=== PATIENT | male | born 1935 | race Caucasian/White ===

== ENCOUNTER 2018-02-18 08:57 | Emergency (ER) | payer SELFPAY ==
[~2018-02-18] VITALS: Ht 172.7 cm; Wt 91.6 kg
[~2018-02-18 08:57] MED LIST: ARTTEAOPSO BOTHEYES; CLINGEL TOP; Diovan160 MG PO; Humulin R500 UNIT/1 IJ; LOSHYD PO; Levemir Fl100 UNIT/M SQ; METF500 PO; METO100ER PO; MINO50 PO; SIMV40 PO; WARF5 PO
[2018-02-18 09:23] LABS: BASOPHILS ABSOLUTE AUTO 0.07 K/mm3 (0.00-0.23); BASOPHILS PERCENT AUTO 1 % (0-2); EOSINOPHILS ABSOLUTE AUTO 0.27 K/mm3 (0.00-0.68); EOSINOPHILS PERCENT AUTO 2 % (0-6); Hematocrit 37.9 % (37.0-53.0); IMMATURE GRAN ABSOLUTE AUTO 0.09 K/mm3 (0.00-0.10); IMMATURE GRAN PERCENT AUTO 1 % (0-1); LYMPHOCYTES ABSOLUTE AUTO 1.42 K/mm3 (0.84-5.20); LYMPHOCYTES PERCENT AUTO 12 % (21-46); MONOCYTES ABSOLUTE AUTO 0.82 K/mm3 (0.16-1.47); MONOCYTES PERCENT AUTO 7 % (4-13); Mean Corpuscular HGB 31.7 pg (26.0-34.0); Mean Corpuscular HGB Conc 31.7 g/dL (31.5-36.5); Mean Corpuscular Volume 100 fL (80-100); Mean Platelet Volume 10.9 fL (9.1-12.4); NEUTROPHILS ABSOLUTE AUTO 8.97 K/mm3 (1.96-9.15); NEUTROPHILS PERCENT AUTO 77 % (41-73); Platelet Count 161 K/mm3 (150-400); RDW Coefficient Variation 12.9 % (11.7-14.2); RDW Standard Deviation 47.8 fL (35.1-46.3); Red Blood Cell Count 3.79 M/mm3 (4.30-5.90); White Blood Cell Count 11.64 K/mm3 (4.00-11.30)
[2018-02-18 09:26] LABS: International Normalized Ratio 2.3; Prothrombin Time Results 22.6 Sec (9.7-11.5)
[2018-02-18 09:32] LABS: Troponin I 0.023 ng/mL (0.000-0.040)
[2018-02-18 09:33] LABS: Bun/Creatinine Ratio 26.3 (12.0-20.0); Calcium, Blood 8.4 mg/dL (8.5-10.1); Creatinine, Blood 1.71 mg/dL (0.60-1.20); Potassium, Blood 3.7 mmol/L (3.5-5.5)
[2018-02-18] MEDS ORDERED: INSDET100 (09:59)
[2018-02-18] MEDS ORDERED: Novolog100 UNIT/1 (09:59)
[2018-02-18] MEDS ORDERED: METO25ER (10:00)
[2018-02-18] MEDS ORDERED: CHLO25B (10:00)
[2018-02-18] MEDS ORDERED: POTA8 (10:00)
[2018-02-18] MEDS ORDERED: CHOL10002 (10:00)
[2018-02-18] MEDS ORDERED: TERA5 (10:01)
[2018-02-18] MEDS ORDERED: WARF1 (10:01)
[2018-02-18] MEDS ORDERED: SIMVASTATIN1 GM (10:01)
[2018-02-18] MEDS ORDERED: FURO100EL (10:02)
[2018-02-18 10:21] LABS: Source, Urine Catheter
[2018-02-18 10:28] LABS: Bilirubin, Urine Neg (Neg); Blood, Urine Neg (Neg); Glucose Qualitative, Urine Neg (Neg); Ketones, Urine Neg (Neg); Leukocyte Esterase, Urine Neg (Neg); Nitrite, Urine Neg (Neg); Protein, Urine 3+ (Neg); Urobilinogen, Urine NORM (Normal)
[2018-02-18 10:45] LABS: Appearance, Urine Clear (Clear); Color, Urine Yellow (P-Yellow); Red Blood Cells, Urine Not Seen /hpf (0-2); White Blood Cells, Urine 0-2 /hpf (0-5)
[2018-02-18 10:46] LABS: Bacteria Not Seen /hpf; Squamous Epithelial Cells Not Seen /hpf (Few)
== END 2018-02-18 11:30 | disposition home or self-care (01) ==
LOC: ER 08:57
PROVIDERS: Emergency Medicine
DX: R55 Syncope and collapse (principal); S09.90XA Unspecified injury of head, initial encounter; E11.649 Type 2 diabetes mellitus with hypoglycemia without coma; I10 Essential (primary) hypertension; M25.512 Pain in left shoulder; Z79.899 Other long term (current) drug therapy; Z79.4 Long term (current) use of insulin; Z79.01 Long term (current) use of anticoagulants; W19.XXXA Unspecified fall, initial encounter
CPT/HCPCS: 70450; 71045; 73030; 80048; 81001; 84484; 85025; 85610; 93005; 93010; 99284-25

== ENCOUNTER 2019-01-28 11:03 | Emergency (ER) | payer SELFPAY ==
[~2019-01-28] VITALS: Ht 170.2 cm; Wt 96.2 kg
[~2019-01-28 11:03] MED LIST changes: +CHLO25B; +CHOL10002; +FURO100EL; +INSDET100; +METO25ER; +Novolog100 UNIT/1; +POTA8; +SIMVASTATIN1 GM; +TERA5; +WARF1
== END 2019-01-28 12:38 | disposition home or self-care (01) ==
LOC: ER 11:03
DX: K40.90 Unilateral inguinal hernia, without obstruction or gangrene, not specified as recurrent (principal); Z88.0 Allergy status to penicillin; Z79.4 Long term (current) use of insulin; Z79.899 Other long term (current) drug therapy; Z79.01 Long term (current) use of anticoagulants; E11.9 Type 2 diabetes mellitus without complications; I10 Essential (primary) hypertension
CPT/HCPCS: 99283

== ENCOUNTER 2020-02-10 23:53 | Emergency (ER) | payer OTHER, MEDICARE ==
[~2020-02-10] VITALS: Ht 170.2 cm; Wt 94.3 kg
[2020-02-11 00:28] LABS: BASOPHILS ABSOLUTE AUTO 0.05 K/mm3 (0.00-0.23); BASOPHILS PERCENT AUTO 1 % (0-2); EOSINOPHILS ABSOLUTE AUTO 0.25 K/mm3 (0.00-0.68); EOSINOPHILS PERCENT AUTO 3 % (0-6); Hematocrit 34.6 % (37.0-53.0); IMMATURE GRAN ABSOLUTE AUTO 0.02 K/mm3 (0.00-0.10); IMMATURE GRAN PERCENT AUTO 0 % (0-1); LYMPHOCYTES ABSOLUTE AUTO 1.66 K/mm3 (0.84-5.20); LYMPHOCYTES PERCENT AUTO 21 % (21-46); MONOCYTES ABSOLUTE AUTO 0.71 K/mm3 (0.16-1.47); MONOCYTES PERCENT AUTO 9 % (4-13); Mean Corpuscular HGB 31.3 pg (26.0-34.0); Mean Corpuscular HGB Conc 31.8 g/dL (31.5-36.5); Mean Corpuscular Volume 99 fL (80-100); Mean Platelet Volume 11.4 fL (9.1-12.4); NEUTROPHILS ABSOLUTE AUTO 5.27 K/mm3 (1.96-9.15); NEUTROPHILS PERCENT AUTO 66 % (41-73); Platelet Count 148 K/mm3 (150-400); RDW Coefficient Variation 13.2 % (11.7-14.2); RDW Standard Deviation 47.7 fL (35.1-46.3); Red Blood Cell Count 3.51 M/mm3 (4.30-5.90); White Blood Cell Count 7.96 K/mm3 (4.00-11.30)
[2020-02-11 00:47] LABS: Albumin, Blood 3.3 g/dL (3.4-5.0); Bilirubin, Total 0.4 mg/dL (0.1-1.0); Bun/Creatinine Ratio 19.4 (12.0-20.0); Calcium, Blood 8.5 mg/dL (8.5-10.1); Creatinine, Blood 1.65 mg/dL (0.60-1.20); Globulin, Blood 3.3 g/dL (2.2-4.0); Potassium, Blood 3.7 mmol/L (3.5-5.5); Total Protein, Blood 6.6 g/dL (6.4-8.2)
[2020-02-16] MEDS ORDERED: CHLO25B PO (17:12)
[2020-02-16] MEDS ORDERED: Felodipine ER2.5 MG PO (17:13)
[2020-02-16] MEDS ORDERED: FURO40 PO (17:13)
[2020-02-16] MEDS ORDERED: DOC250 PO (17:13)
[2020-02-16] MEDS ORDERED: FLUT.05NI (17:13)
[2020-02-16] MEDS ORDERED: NOVOLOG FL100 UNIT/3 SC ×3 (17:14→17:15)
[2020-02-16] MEDS ORDERED: LEVEMIR100 UNIT/1 SC ×2 (17:15)
[2020-02-16] MEDS ORDERED: POTA10T PO (17:16)
[2020-02-16] MEDS ORDERED: METO50 PO ×2 (17:16)
[2020-02-16] MEDS ORDERED: MULTI VITAMIN1 EACH PO (17:16)
[2020-02-16] MEDS ORDERED: Zocor40 MG PO (17:17)
[2020-02-16] MEDS ORDERED: Hytrin2 MG PO (17:17)
[2020-02-16] MEDS ORDERED: WARF5 PO ×2 (17:18)
[2020-02-16] MEDS ORDERED: VITAMIN D325 MC3 PO (19:06)
== END 2020-02-11 05:17 | disposition home or self-care (01) ==
LOC: ER 23:53
PROVIDERS: Emergency Medicine
DX: T38.3X1A Poisoning by insulin and oral hypoglycemic [antidiabetic] drugs, accidental (unintentional), initial encounter (principal); E11.9 Type 2 diabetes mellitus without complications; I10 Essential (primary) hypertension; Z88.0 Allergy status to penicillin; Z79.01 Long term (current) use of anticoagulants; Z79.4 Long term (current) use of insulin; Z79.899 Other long term (current) drug therapy
CPT/HCPCS: 80053; 82947; 85025; 99284

== ENCOUNTER 2020-02-16 09:18 | Inpatient (IN) | payer OTHER, MEDICARE ==
[~2020-02-16] VITALS: Ht 172.7 cm; Wt 93.4 kg
[2020-02-16 09:55] LABS: BASOPHILS ABSOLUTE AUTO 0.03 K/mm3 (0.00-0.23); BASOPHILS PERCENT AUTO 0 % (0-2); EOSINOPHILS ABSOLUTE AUTO 0.16 K/mm3 (0.00-0.68); EOSINOPHILS PERCENT AUTO 1 % (0-6); Hematocrit 33.5 % (37.0-53.0); Hemoglobin 10.5 g/dL (13.5-17.5); IMMATURE GRAN ABSOLUTE AUTO 0.07 K/mm3 (0.00-0.10); IMMATURE GRAN PERCENT AUTO 1 % (0-1); LYMPHOCYTES ABSOLUTE AUTO 0.85 K/mm3 (0.84-5.20); LYMPHOCYTES PERCENT AUTO 6 % (21-46); MONOCYTES ABSOLUTE AUTO 0.99 K/mm3 (0.16-1.47); MONOCYTES PERCENT AUTO 8 % (4-13); Mean Corpuscular HGB 31.4 pg (26.0-34.0); Mean Corpuscular HGB Conc 31.3 g/dL (31.5-36.5); Mean Corpuscular Volume 100 fL (80-100); Mean Platelet Volume 11.9 fL (9.1-12.4); NEUTROPHILS ABSOLUTE AUTO 11.09 K/mm3 (1.96-9.15); NEUTROPHILS PERCENT AUTO 84 % (41-73); Platelet Count 129 K/mm3 (150-400); RDW Coefficient Variation 13.2 % (11.7-14.2); RDW Standard Deviation 48.8 fL (35.1-46.3); Red Blood Cell Count 3.34 M/mm3 (4.30-5.90); White Blood Cell Count 13.19 K/mm3 (4.00-11.30)
[2020-02-16 10:08] LABS: Albumin, Blood 3.2 g/dL (3.4-5.0); Albumin/Globulin Ratio 0.9 (0.8-1.8); Bilirubin, Total 1.6 mg/dL (0.1-1.0); Bun/Creatinine Ratio 22.6 (12.0-20.0); Calcium, Blood 8.7 mg/dL (8.5-10.1); Creatinine, Blood 1.64 mg/dL (0.60-1.20); Globulin, Blood 3.4 g/dL (2.2-4.0); Potassium, Blood 3.4 mmol/L (3.5-5.5); Total Protein, Blood 6.6 g/dL (6.4-8.2)
[2020-02-16 10:56] LABS: International Normalized Ratio 9.3; Prothrombin Time Results 87.7 Sec (9.7-11.5)
[2020-02-16 11:28] LABS: Source, Urine Clean Catch
[2020-02-16 11:31] LABS: Appearance, Urine Clear (Clear); Bilirubin, Urine Neg (Neg); Blood, Urine 1+ (Neg); Color, Urine Yellow (P-Yellow); Glucose Qualitative, Urine 1+ (Neg); Ketones, Urine Neg (Neg); Leukocyte Esterase, Urine Neg (Neg); Nitrite, Urine Neg (Neg); Protein, Urine 3+ (Neg); Urobilinogen, Urine NORM (Normal)
[2020-02-16 11:45] LABS: Bacteria Not Seen /hpf; Hyaline Casts 0-2 /lpf (0-2); Squamous Epithelial Cells Not Seen /hpf (Few); White Blood Cells, Urine 0-2 /hpf (0-5)
[2020-02-16] MEDS ORDERED: ATHLETE'S FOO35.4 GM PR (17:12)
[2020-02-16] MEDS ORDERED: CHLO25B PO ×2 (17:12)
[2020-02-16] MEDS ORDERED: DOC250 PO ×2 (17:13)
[2020-02-16] MEDS ORDERED: Felodipine ER2.5 MG PO ×2 (17:13)
[2020-02-16] MEDS ORDERED: FLUT.05NI ×2 (17:13)
[2020-02-16] MEDS ORDERED: FURO40 PO ×2 (17:13)
[2020-02-16] MEDS ORDERED: NOVOLOG FL100 UNIT/3 SC ×6 (17:14→17:15)
[2020-02-16] MEDS ORDERED: LEVEMIR100 UNIT/1 SC ×4 (17:15)
[2020-02-16] MEDS ORDERED: METO50 PO ×4 (17:16)
[2020-02-16] MEDS ORDERED: POTA10T PO ×2 (17:16)
[2020-02-16] MEDS ORDERED: MULTI VITAMIN1 EACH PO ×2 (17:16)
[2020-02-16] MEDS ORDERED: Zocor40 MG PO ×2 (17:17)
[2020-02-16] MEDS ORDERED: Vitamin B Comple1 EA PO (17:17)
[2020-02-16] MEDS ORDERED: Hytrin2 MG PO ×2 (17:17)
[2020-02-16] MEDS ORDERED: WARF5 PO ×3 (17:18)
[2020-02-16] MEDS ORDERED: VITAMIN D325 MC3 PO ×2 (19:06)
[2020-02-16 23:50] LABS: International Normalized Ratio 10.23; Prothrombin Time Results >90.0 Sec (9.7-11.5)
--- NOTE | 2020-02-17 00:16 | NUR ---
DR. SEARS NOTIFIED OF CRITICAL INR/PT OF 10.23 AND >90. NO CHANGES IN PATIENT CONDITION. VS WNL. NEW ORDER TO GIVE VITAMIN K 5MG PO X1.
[2020-02-17 05:44] LABS: BASOPHILS ABSOLUTE AUTO 0.05 K/mm3 (0.00-0.23); BASOPHILS PERCENT AUTO 1 % (0-2); EOSINOPHILS ABSOLUTE AUTO 0.28 K/mm3 (0.00-0.68); EOSINOPHILS PERCENT AUTO 3 % (0-6); Hematocrit 35.2 % (37.0-53.0); Hemoglobin 11.3 g/dL (13.5-17.5); IMMATURE GRAN ABSOLUTE AUTO 0.03 K/mm3 (0.00-0.10); IMMATURE GRAN PERCENT AUTO 0 % (0-1); LYMPHOCYTES ABSOLUTE AUTO 1.44 K/mm3 (0.84-5.20); LYMPHOCYTES PERCENT AUTO 17 % (21-46); MONOCYTES PERCENT AUTO 8 % (4-13); Mean Corpuscular HGB 31.9 pg (26.0-34.0); Mean Corpuscular HGB Conc 32.1 g/dL (31.5-36.5); Mean Corpuscular Volume 99 fL (80-100); Mean Platelet Volume 11.7 fL (9.1-12.4); NEUTROPHILS ABSOLUTE AUTO 6.02 K/mm3 (1.96-9.15); NEUTROPHILS PERCENT AUTO 71 % (41-73); Platelet Count 138 K/mm3 (150-400); RDW Coefficient Variation 13.1 % (11.7-14.2); Red Blood Cell Count 3.54 M/mm3 (4.30-5.90); White Blood Cell Count 8.52 K/mm3 (4.00-11.30)
[2020-02-17 06:01] LABS: International Normalized Ratio 3.21
[2020-02-17 06:06] LABS: Albumin, Blood 3.3 g/dL (3.4-5.0); Bilirubin, Total 0.9 mg/dL (0.1-1.0); Calcium, Blood 8.6 mg/dL (8.5-10.1); Creatinine, Blood 1.48 mg/dL (0.60-1.20); Globulin, Blood 3.4 g/dL (2.2-4.0); Potassium, Blood 3.8 mmol/L (3.5-5.5); Total Protein, Blood 6.7 g/dL (6.4-8.2)
--- NOTE | 2020-02-17 06:09 | NUR ---
SHIFT SUMMARY: PT A&O X4. HYPERTENSIVE THIS SHIFT. ALL OTHER VS WNL. PT DENIES ABD PAIN. PT GIVEN A ONE TIME DOSE OF VITAMIN K FOR CRITICAL INR. INR THIS MORNING 3.21. PT HAS BEEN NPO SINCE MIDNIGHT PER ORDERS. DENIES N/V. FLUIDS INFUSING PER EMAR. PT HAVING EPISODES OF DIARHHEA THIS SHIFT. VOIDING WELL. SBA TO BATHROOM.
[2020-02-17 06:10] LABS: Prothrombin Time Results 32.2 Sec (9.7-11.5)
--- NOTE | 2020-02-17 08:39 | NUR ---
DR SMITH HERE TO SEE PT. PT REPORTS PAIN DOING MUCH BETTER THIS AM.
--- NOTE | 2020-02-17 09:12 | NUR ---
DR ROTH NOTIFIED OF DR SMITH REQUESTING FOR HER TO CALL HIM.
--- NOTE | 2020-02-17 11:46 | NUR ---
PT CBG CHECKED AFTER PT ATE, PT MED FOR CBG.
--- NOTE | 2020-02-17 16:36 | NUR ---
SHIFT SUMMARY PT EATING AND DRINKING WITHOUT DIFFICULTY. PT BEEN ASSISTED WITH ADL'S PRN. PT REPORTED HAVING BM TODAY. PT CONT TO DENY PAIN. PT HAD SHOWER TODAY. PT UP AMBULATING IN HALLWAY THIS AFTERNOON WITH WALKER WITH STEADY GAIT WITH FAMILY. SHARRON CORDOVA TO SEE PT TODAY.
--- NOTE | 2020-02-17 17:06 | NUR ---
DISCUSSED PT'S STATUS OF HAVING DIET WITH DR ROTH. DISCUSSED SEMGLEE ORDER. DR ROTH REPORTS TO GIVE THIS EVENING. DR ROTH REPORTED TO CLARIFY WITH DR SMITH IF PT NEEDING TO BE NPO AFTER MIDNIGHT. DR SMITH NOTIFIED, REPORTED PT DID NOT NEED TO BE NPO AFTER MIDNIGHT TONIGHT R/T INR.
[2020-02-18 04:43] LABS: BASOPHILS ABSOLUTE AUTO 0.04 K/mm3 (0.00-0.23); BASOPHILS PERCENT AUTO 1 % (0-2); EOSINOPHILS ABSOLUTE AUTO 0.36 K/mm3 (0.00-0.68); EOSINOPHILS PERCENT AUTO 5 % (0-6); Hematocrit 30.2 % (37.0-53.0); Hemoglobin 9.7 g/dL (13.5-17.5); IMMATURE GRAN ABSOLUTE AUTO 0.03 K/mm3 (0.00-0.10); IMMATURE GRAN PERCENT AUTO 0 % (0-1); LYMPHOCYTES PERCENT AUTO 21 % (21-46); MONOCYTES ABSOLUTE AUTO 0.76 K/mm3 (0.16-1.47); MONOCYTES PERCENT AUTO 11 % (4-13); Mean Corpuscular HGB 31.4 pg (26.0-34.0); Mean Corpuscular HGB Conc 32.1 g/dL (31.5-36.5); Mean Corpuscular Volume 98 fL (80-100); Mean Platelet Volume 11.1 fL (9.1-12.4); NEUTROPHILS ABSOLUTE AUTO 4.58 K/mm3 (1.96-9.15); NEUTROPHILS PERCENT AUTO 63 % (41-73); Platelet Count 123 K/mm3 (150-400); RDW Standard Deviation 46.5 fL (35.1-46.3); Red Blood Cell Count 3.09 M/mm3 (4.30-5.90); White Blood Cell Count 7.27 K/mm3 (4.00-11.30)
[2020-02-18 04:59] LABS: International Normalized Ratio 1.34; Prothrombin Time Results 14.1 Sec (9.7-11.5)
--- NOTE | 2020-02-18 05:05 | NUR ---
SHIFT SUMMARY: PT HAS DONE WELL THIS SHIFT. TOLERATING FULL LIQ DIET. DENIES N/V. DENIES ABD PAIN/TENDERNESS. ACTIVE BT IN ALL QUADRANTS. NOT REQUIRING PAIN MEDS THIS SHIFT. INDEPENDENT IN ROOM. VOIDING WELL. PT APPEARS TO BE RESTING MOST OF SHIFT. PT AWARE OF PLAN AND POSSIBLE TREATMENT WITH HEPARIN TODAY.
[2020-02-18 05:07] LABS: Albumin, Blood 2.9 g/dL (3.4-5.0); Albumin/Globulin Ratio 0.9 (0.8-1.8); Bilirubin, Total 0.9 mg/dL (0.1-1.0); Bun/Creatinine Ratio 21.3 (12.0-20.0); Calcium, Blood 8.5 mg/dL (8.5-10.1); Creatinine, Blood 1.36 mg/dL (0.60-1.20); Globulin, Blood 3.1 g/dL (2.2-4.0); Potassium, Blood 3.5 mmol/L (3.5-5.5)
--- NOTE | 2020-02-18 07:26 | NUR ---
DR. SMITH CALLED AT THIS TIME REGAURDING PT INR OF 1.3, AND ALSO INFORMED DR. SMITH THAT PT IS NOT CURRENTLY RECEIVING HEPARIN. NO NEW ORDERS AT THIS TIME, DR. DUNN TO SEE PT. PT TO BE KEPT NPO FOR NOW.
--- NOTE | 2020-02-18 12:41 | NUR ---
PT LEFT FOR SURGERY AT ABOUT 1230
--- NOTE | 2020-02-18 14:44 | NUR ---
02/18/20 1444 Mara Cruz ALL COUNTS CORRECT
--- NOTE | 2020-02-18 17:02 | NUR ---
POST OP: REPORT RECEIVED FROM HOME ADVISOR KIM. PT TO UNIT AT ABOUT 1620. UPON ASSESSMENT PT IS A/O, VSS. SLIGHTLY FORGETFUL, BED ALARM ON. SURGICAL SITES WNL. WILL CTM
--- NOTE | 2020-02-18 18:12 | NUR ---
SUMMARY: PT DOING WELL POST OP. VSS, A/O. ABLE TO AMBULATE TO BATHROOM AND VOID. CURRENTLY SITTING AT EDGE OF BED AWAITING DINNER. PT DAUGHTER IN ROOM. PT MEDICATED X1 FOR PAIN, TOLERATING PO'S. HEPARIN DRIP STARTED AT 1750. WILL CTM AND REPORT TO CAREN PEREIRA.
--- NOTE | 2020-02-18 18:33 | NUR ---
HAPARIN CHANGED TO 18.7 ML/HR AT THIS TIME.
--- NOTE | 2020-02-18 23:39 | NUR ---
CBG: PT CBG ELEVATED, RECHECKED READING 432. CALL PALCED TO HOSPITALIST. PT CBG TREND AND ORDERS REVIEWED. NEW ORDERS REC.
--- NOTE | 2020-02-19 00:47 | NUR ---
CBG AT 432, PLAN TO ADMINSTER 12 UNITS OF HUMALOG PER MD ORDER ON MED SS. PT STS HE IS NOT COMFORTBLE WITH 12 UNITS OF HUMALOG. PT IS WORRIED ABOUT BLOOD GLUCOSE DROPPING QUICKLY. EDUCATED PT OF HUMALOG MED AND DIABETES. PT AGREED TO TAKE 8 UNITS AND PLAN TO REASSESS PT AFTER AN HOUR. PT WILL ALSO REPORT FOR ANY S/SX OF HYPOGLYCEMIA.
[2020-02-19 01:18] LABS: BASOPHILS PERCENT AUTO 0 % (0-2); EOSINOPHILS PERCENT AUTO 0 % (0-6); Hematocrit 31.8 % (37.0-53.0); Hemoglobin 10.1 g/dL (13.5-17.5); IMMATURE GRAN ABSOLUTE AUTO 0.04 K/mm3 (0.00-0.10); IMMATURE GRAN PERCENT AUTO 0 % (0-1); LYMPHOCYTES ABSOLUTE AUTO 0.45 K/mm3 (0.84-5.20); LYMPHOCYTES PERCENT AUTO 5 % (21-46); MONOCYTES ABSOLUTE AUTO 0.28 K/mm3 (0.16-1.47); MONOCYTES PERCENT AUTO 3 % (4-13); Mean Corpuscular HGB 31.5 pg (26.0-34.0); Mean Corpuscular HGB Conc 31.8 g/dL (31.5-36.5); Mean Corpuscular Volume 99 fL (80-100); Mean Platelet Volume 12.3 fL (9.1-12.4); NEUTROPHILS ABSOLUTE AUTO 8.14 K/mm3 (1.96-9.15); NEUTROPHILS PERCENT AUTO 91 % (41-73); Platelet Count 125 K/mm3 (150-400); RDW Coefficient Variation 12.9 % (11.7-14.2); RDW Standard Deviation 46.4 fL (35.1-46.3); Red Blood Cell Count 3.21 M/mm3 (4.30-5.90); White Blood Cell Count 8.91 K/mm3 (4.00-11.30)
[2020-02-19 01:40] LABS: Albumin, Blood 2.9 g/dL (3.4-5.0); Anion Gap 5 mmol/L (6-16); Blood Urea Nitrogen 32 mg/dL (8-24); Bun/Creatinine Ratio 17.5 (12.0-20.0); CO2, Blood 26 mmol/L (21-32); Calcium, Blood 8.4 mg/dL (8.5-10.1); Chloride, Blood 107 mmol/L (98-108); Creatinine, Blood 1.83 mg/dL (0.60-1.20); Glomerular Filtration Rate 38 (60-); Glucose, Blood 416 mg/dL (70-99); International Normalized Ratio 1.23; Phosphorus, Blood 3.5 mg/dL (2.5-4.9); Potassium, Blood 4.5 mmol/L (3.5-5.5); Sodium, Blood 138 mmol/L (136-145)
--- NOTE | 2020-02-19 05:13 | NUR ---
SHIFT SUMMARY POD1 FOR LAP ROBINSON. PT AOX4. VSS. PT CONTINUE TO HAVE 02 SAT OF 85-93 ON RA AT SLEEP. CONTINOUS BIOX IN PLACED AND CPAP PROTOCOL ORDERED. PT REFUSE TO USE CPAP MACHINE, PREFER TO USE 2L O2 AT SLEEP. ENC PT TO USE INCENTIVE SPIROMETER. ENC DEEP BREATHES. CBG REMAIN HIGH BUT IMPROVING. PT REFUSE TO TAKE RECOMMENDED FULL DOSE OF 12UNITS, INSTEAD HE AGREES TO TAKE 8 UNITS OF HUMALOG. EDUCATE PT OF INSULIN AND DM2 MANAGEMENT. PT IS ASYMPTOMATIC, DENIES S/SX OF HYPOGLYCEMIA. PT TOLERATING ADA DIET DENIES NAUSEA AND VOMITING. PT REPORTS PASSING FLATUS. HE DENIES PAIN. SCD'S IN PLACE ON BLE.
--- NOTE | 2020-02-19 09:28 | NUR ---
SPOKE WITH DR. AMAYA AT ABOUT 0750 CONCERNING PT CBG, SEE NEW ORDERS.
--- NOTE | 2020-02-19 11:14 | NUR ---
DR. ROTH NOTIFIED OF PT CBG OF 420 AT THIS TIME. ORDER TO GIVE 12 UNITS OF SQ HUMALOG NOW
--- NOTE | 2020-02-19 12:01 | NUR ---
HEPARIN STOPED AT ABOUT 1155
[2020-02-19] MEDS ORDERED: ENOXAPARIN150 MG/1 M SC ×2 (15:09)
--- NOTE | 2020-02-19 17:42 | NUR ---
DISCHARGE: PACKET PRINTED AND PT AND PT'S DAUGHTER EDUCATED. VERBALIZED UNDERSTANDING. [facility]. PT LEFT UNIT VIA WHEELCHIAR AT ABOUT 1715 WITH DAUGHTER AND LUIGI MAXWELL
--- NOTE | 2020-02-19 18:56 | NUR ---
SPOKE WITH PT'S SON ASHLEIGH CONCERNING PT NARCO SCRIPT. PT ABLE TO PAPER PRODUCTS SUPERVISOR TOMORROW IF NEEDED WHEN COMES IN FOR LOVENOX INJECTION. WILL LEAVE AT NURSES STATION AT MAKE NOC/GENERAL OFFICE DISPATCHER AWARE.
== END 2020-02-19 17:33 | disposition home or self-care (01) | DRG 408 ==
LOC: ER 09:18 → SURS 17:38
PROVIDERS: Emergency Medicine; Family Medicine; Physician Assistant; Surgery; ADMIT Internal Medicine
PROC: 0FT Hepatobiliary System and Pancreas, Resection (ICD-10-PCS; 2020-02-18)
PROC: BF14YZZ Fluoroscopy of Gallbladder, Bile Ducts and Pancreatic Ducts using Other Contrast (ICD-10-PCS; 2020-02-18)
PROC: 0FT44ZZ Resection of Gallbladder, Percutaneous Endoscopic Approach (ICD-10-PCS; principal; 2020-02-18 13:30)
DX: K80.42 Calculus of bile duct with acute cholecystitis without obstruction (principal); K85.10 Biliary acute pancreatitis without necrosis or infection; I48.20 Chronic atrial fibrillation, unspecified; Z20.828 Contact with and (suspected) exposure to other viral communicable diseases; N18.30 Chronic kidney disease, stage 3 unspecified; E11.22 Type 2 diabetes mellitus with diabetic chronic kidney disease; K21.9 Gastro-esophageal reflux disease without esophagitis; I12.9 Hypertensive chronic kidney disease with stage 1 through stage 4 chronic kidney disease, or unspecified chronic kidney disease; N40.0 Benign prostatic hyperplasia without lower urinary tract symptoms; E87.5 Hyperkalemia; D63.1 Anemia in chronic kidney disease; D69.6 Thrombocytopenia, unspecified; Z86.73 Personal history of transient ischemic attack (TIA), and cerebral infarction without residual deficits; Z95.2 Presence of prosthetic heart valve; Z87.891 Personal history of nicotine dependence; Z79.4 Long term (current) use of insulin; Z79.01 Long term (current) use of anticoagulants
CPT/HCPCS: 36415; 74177; 74181; 74300; 80053; 80069; 81001; 82947; 83690; 84100; 85025; 85610; 85730; 88304; 93005; 93010; 94762; 99285-25; A9270; A9270-GY; C1894; C9113; J0696; J1100; J1644; J1650; J1885; J2405; J2704; J3010; J7030; J7120; Q9967; U0004

== ENCOUNTER 2020-02-20 11:05 | Day surgery (SDC) | payer OTHER, MEDICARE ==
[~2020-02-20 11:05] MED LIST changes: +ATHLETE'S FOO35.4 GM PR; +CHLO25B PO; +DOC250 PO; +ENOXAPARIN150 MG/1 M SC; +FLUT.05NI; +FURO40 PO; +Felodipine ER2.5 MG PO; +Hytrin2 MG PO; +LEVEMIR100 UNIT/1 SC; +METO50 PO; +MULTI VITAMIN1 EACH PO; +NOVOLOG FL100 UNIT/3 SC; +POTA10T PO; +VITAMIN D325 MC3 PO; +Vitamin B Comple1 EA PO; +Zocor40 MG PO
== END 2020-02-20 16:17 | disposition home or self-care (01) ==
LOC: ATC 11:05
DX: K85.10 Biliary acute pancreatitis without necrosis or infection (principal); E11.9 Type 2 diabetes mellitus without complications; I10 Essential (primary) hypertension; E78.5 Hyperlipidemia, unspecified; Z79.4 Long term (current) use of insulin; Z95.2 Presence of prosthetic heart valve; Z79.899 Other long term (current) drug therapy; Z79.01 Long term (current) use of anticoagulants; Z88.0 Allergy status to penicillin; Z87.891 Personal history of nicotine dependence; I48.91 Unspecified atrial fibrillation
CPT/HCPCS: 85610; J1650

== ENCOUNTER 2020-02-21 00:07 | Day surgery (SDC) | payer OTHER, MEDICARE ==
--- NOTE | 2020-02-21 14:44 | NUR ---
FINGERSTICK INR 1.3
== END 2020-02-21 14:44 | disposition home or self-care (01) ==
LOC: ATC 00:07
DX: K85.10 Biliary acute pancreatitis without necrosis or infection (principal); E11.9 Type 2 diabetes mellitus without complications; I10 Essential (primary) hypertension; I48.91 Unspecified atrial fibrillation; Z79.4 Long term (current) use of insulin; Z79.01 Long term (current) use of anticoagulants; Z95.2 Presence of prosthetic heart valve; Z88.0 Allergy status to penicillin; Z87.891 Personal history of nicotine dependence; Z79.899 Other long term (current) drug therapy
CPT/HCPCS: 85610; J1650

== ENCOUNTER 2020-02-22 14:13 | Day surgery (SDC) | payer OTHER, MEDICARE ==
--- NOTE | 2020-02-22 14:44 | NUR ---
FINGERSTICK INR 1.4 TODAY
== END 2020-02-22 14:40 | disposition home or self-care (01) ==
LOC: ATC 14:13
DX: Z48.812 Encounter for surgical aftercare following surgery on the circulatory system (principal); E11.9 Type 2 diabetes mellitus without complications; I10 Essential (primary) hypertension; E78.5 Hyperlipidemia, unspecified; Z95.2 Presence of prosthetic heart valve; K85.10 Biliary acute pancreatitis without necrosis or infection; Z95.4 Presence of other heart-valve replacement; Z79.4 Long term (current) use of insulin; Z88.0 Allergy status to penicillin; I48.91 Unspecified atrial fibrillation; Z79.899 Other long term (current) drug therapy; Z79.01 Long term (current) use of anticoagulants; Z87.891 Personal history of nicotine dependence
CPT/HCPCS: 85610

== ENCOUNTER 2020-02-23 00:25 | Day surgery (SDC) | payer OTHER, MEDICARE | END 2020-02-23 14:36 | disposition home or self-care (01) | LOC: ATC 00:25 | DX: Z48.812 Encounter for surgical aftercare following surgery on the circulatory system (principal); E11.9 Type 2 diabetes mellitus without complications; Z79.4 Long term (current) use of insulin; I10 Essential (primary) hypertension; E78.5 Hyperlipidemia, unspecified; Z79.899 Other long term (current) drug therapy; Z79.01 Long term (current) use of anticoagulants; Z95.2 Presence of prosthetic heart valve; Z88.0 Allergy status to penicillin; Z87.891 Personal history of nicotine dependence; K85.10 Biliary acute pancreatitis without necrosis or infection; I48.91 Unspecified atrial fibrillation | CPT/HCPCS: 85610; J1650 ==

== ENCOUNTER 2020-02-24 00:29 | Day surgery (SDC) | payer OTHER, MEDICARE | END 2020-02-24 14:30 | disposition home or self-care (01) | LOC: ATC 00:29 | DX: Z48.812 Encounter for surgical aftercare following surgery on the circulatory system (principal); E11.9 Type 2 diabetes mellitus without complications; I10 Essential (primary) hypertension; E78.5 Hyperlipidemia, unspecified; Z95.2 Presence of prosthetic heart valve; Z88.0 Allergy status to penicillin; Z79.4 Long term (current) use of insulin; Z79.899 Other long term (current) drug therapy; Z79.01 Long term (current) use of anticoagulants; Z87.891 Personal history of nicotine dependence; I48.91 Unspecified atrial fibrillation; K85.10 Biliary acute pancreatitis without necrosis or infection | CPT/HCPCS: 36416; 85610; 96372; J1650 ==

== ENCOUNTER 2020-02-25 02:46 | Day surgery (SDC) | payer OTHER, MEDICARE | END 2020-02-25 14:39 | disposition home or self-care (01) | LOC: ATC 02:46 | DX: Z48.812 Encounter for surgical aftercare following surgery on the circulatory system (principal); E11.9 Type 2 diabetes mellitus without complications; I10 Essential (primary) hypertension; I48.91 Unspecified atrial fibrillation; K85.10 Biliary acute pancreatitis without necrosis or infection; E78.5 Hyperlipidemia, unspecified; Z79.899 Other long term (current) drug therapy; Z79.01 Long term (current) use of anticoagulants; Z95.2 Presence of prosthetic heart valve; Z79.4 Long term (current) use of insulin; Z88.0 Allergy status to penicillin | CPT/HCPCS: 36416; 85610; 96372; J1650 ==

== ENCOUNTER 2020-02-26 00:12 | Day surgery (SDC) | payer OTHER, MEDICARE | END 2020-02-26 14:37 | disposition home or self-care (01) | LOC: ATC 00:12 | DX: I35.0 Nonrheumatic aortic (valve) stenosis (principal); I10 Essential (primary) hypertension; I48.91 Unspecified atrial fibrillation; E11.9 Type 2 diabetes mellitus without complications; N40.0 Benign prostatic hyperplasia without lower urinary tract symptoms; D64.9 Anemia, unspecified; Z95.2 Presence of prosthetic heart valve; Z79.01 Long term (current) use of anticoagulants; Z79.4 Long term (current) use of insulin; Z86.73 Personal history of transient ischemic attack (TIA), and cerebral infarction without residual deficits; Z79.899 Other long term (current) drug therapy; Z87.891 Personal history of nicotine dependence; Z88.0 Allergy status to penicillin | CPT/HCPCS: 36416; 85610; 96372; J1650 ==

== ENCOUNTER 2020-02-27 00:46 | Day surgery (SDC) | payer SELFPAY ==
--- NOTE | 2020-02-27 14:57 | NUR ---
THIS RN FAXED RESULTS TO PCP YESTERDAY. PT STS PCP DID NOT HAVE THE RESULTS AND REQUESTED THEM AGAIN TODAY. PT STS HE WILL HAND DELIVER TODAYS RESULTS.
== END 2020-02-27 14:45 | disposition home or self-care (01) ==
LOC: ATC 00:46
DX: I08.0 Rheumatic disorders of both mitral and aortic valves (principal); I10 Essential (primary) hypertension; I48.91 Unspecified atrial fibrillation; E11.9 Type 2 diabetes mellitus without complications; N40.0 Benign prostatic hyperplasia without lower urinary tract symptoms; E78.5 Hyperlipidemia, unspecified; D64.9 Anemia, unspecified; Z95.2 Presence of prosthetic heart valve; Z79.01 Long term (current) use of anticoagulants; Z79.4 Long term (current) use of insulin; Z86.73 Personal history of transient ischemic attack (TIA), and cerebral infarction without residual deficits; Z79.899 Other long term (current) drug therapy; Z88.0 Allergy status to penicillin; Z87.891 Personal history of nicotine dependence
CPT/HCPCS: 36416; 85610; 96372; J1650

== ENCOUNTER 2020-02-28 00:45 | Day surgery (SDC) | payer SELFPAY | END 2020-02-28 14:20 | disposition home or self-care (01) | LOC: ATC 00:45 | DX: Z48.812 Encounter for surgical aftercare following surgery on the circulatory system (principal); E11.9 Type 2 diabetes mellitus without complications; I10 Essential (primary) hypertension; E78.5 Hyperlipidemia, unspecified; K85.10 Biliary acute pancreatitis without necrosis or infection; I48.91 Unspecified atrial fibrillation; Z95.2 Presence of prosthetic heart valve; Z88.0 Allergy status to penicillin; Z79.4 Long term (current) use of insulin; Z79.899 Other long term (current) drug therapy; Z79.01 Long term (current) use of anticoagulants; Z87.891 Personal history of nicotine dependence | CPT/HCPCS: 36416; 85610; 96372; J1650 ==

== ENCOUNTER 2020-02-29 13:56 | Day surgery (SDC) | payer SELFPAY | END 2020-02-29 14:16 | disposition home or self-care (01) | LOC: ATC 13:56 | DX: Z48.812 Encounter for surgical aftercare following surgery on the circulatory system (principal); E11.9 Type 2 diabetes mellitus without complications; I10 Essential (primary) hypertension; E78.5 Hyperlipidemia, unspecified; Z95.2 Presence of prosthetic heart valve; Z79.4 Long term (current) use of insulin; Z88.0 Allergy status to penicillin; Z79.899 Other long term (current) drug therapy; Z87.891 Personal history of nicotine dependence; Z79.01 Long term (current) use of anticoagulants; K85.10 Biliary acute pancreatitis without necrosis or infection | CPT/HCPCS: 36416; 85610; 96372; J1650 ==

== ENCOUNTER 2020-03-01 00:47 | Day surgery (SDC) | payer SELFPAY | END 2020-03-01 14:35 | disposition home or self-care (01) | LOC: ATC 00:47 → LAB 00:47 → ATC 14:30 | DX: I08.0 Rheumatic disorders of both mitral and aortic valves (principal); I10 Essential (primary) hypertension; I48.91 Unspecified atrial fibrillation; E11.9 Type 2 diabetes mellitus without complications; N40.0 Benign prostatic hyperplasia without lower urinary tract symptoms; E78.5 Hyperlipidemia, unspecified; Z79.01 Long term (current) use of anticoagulants; Z79.4 Long term (current) use of insulin; Z79.899 Other long term (current) drug therapy; Z95.2 Presence of prosthetic heart valve; Z86.73 Personal history of transient ischemic attack (TIA), and cerebral infarction without residual deficits; Z90.49 Acquired absence of other specified parts of digestive tract; Z88.0 Allergy status to penicillin | CPT/HCPCS: 36416; 85610; 96372; J1650 ==

== ENCOUNTER 2020-03-02 00:05 | Day surgery (SDC) | payer SELFPAY | END 2020-03-02 15:08 | disposition home or self-care (01) | LOC: LAB 00:05 → ATC 00:05 | DX: Z48.812 Encounter for surgical aftercare following surgery on the circulatory system (principal); E11.9 Type 2 diabetes mellitus without complications; I10 Essential (primary) hypertension; Z95.2 Presence of prosthetic heart valve; Z88.0 Allergy status to penicillin; I48.91 Unspecified atrial fibrillation; Z79.4 Long term (current) use of insulin; Z79.899 Other long term (current) drug therapy; Z79.01 Long term (current) use of anticoagulants; Z87.891 Personal history of nicotine dependence; K85.10 Biliary acute pancreatitis without necrosis or infection | CPT/HCPCS: 36416; 85610; 96372; J1650 ==

== ENCOUNTER 2020-03-03 00:56 | Day surgery (SDC) | payer SELFPAY | END 2020-03-03 14:15 | disposition home or self-care (01) | LOC: ATC 00:56 | DX: Z48.812 Encounter for surgical aftercare following surgery on the circulatory system (principal); E11.9 Type 2 diabetes mellitus without complications; E78.5 Hyperlipidemia, unspecified; I11.9 Hypertensive heart disease without heart failure; Z95.2 Presence of prosthetic heart valve; Z88.0 Allergy status to penicillin; Z79.4 Long term (current) use of insulin; Z79.899 Other long term (current) drug therapy; Z79.01 Long term (current) use of anticoagulants; Z87.891 Personal history of nicotine dependence; I48.91 Unspecified atrial fibrillation; K85.10 Biliary acute pancreatitis without necrosis or infection | CPT/HCPCS: 36416; 85610; 96372; J1650 ==

== ENCOUNTER 2020-03-04 00:14 | Day surgery (SDC) | payer SELFPAY ==
--- NOTE | 2020-03-04 14:17 | NUR ---
PT REPORTS TAKING 10MG OF COUMADIN LAST NIGHT. PT VERBALIZED HE WILL TAKE HIS 7.5MG DOSE TONIGHT AND RETURN FOR INR CHECK PER MD ORDER TOMORROW
--- NOTE | 2020-03-04 14:22 | NUR ---
PT REPORTS TAKING 10MG COUMADIN LAST NIGHT. PT VERBALIZES HE WILL TAKE HIS 7.5MG TONIGHT AND RETURN TOMORROW FOR INR CHECK PER MD ORDERS.
== END 2020-03-04 14:15 | disposition home or self-care (01) ==
LOC: ATC 00:14
DX: Z48.812 Encounter for surgical aftercare following surgery on the circulatory system (principal); Z95.2 Presence of prosthetic heart valve; E11.9 Type 2 diabetes mellitus without complications; E78.5 Hyperlipidemia, unspecified; I11.9 Hypertensive heart disease without heart failure; Z88.0 Allergy status to penicillin; Z79.4 Long term (current) use of insulin; Z79.899 Other long term (current) drug therapy; Z79.01 Long term (current) use of anticoagulants; Z87.891 Personal history of nicotine dependence; I48.91 Unspecified atrial fibrillation; K85.10 Biliary acute pancreatitis without necrosis or infection
CPT/HCPCS: 36416; 85610; 96372; J1650

== ENCOUNTER 2020-03-05 00:31 | Day surgery (SDC) | payer SELFPAY ==
--- NOTE | 2020-03-05 14:23 | NUR ---
FINGERSTICK INR TODAY = 2.4.
== END 2020-03-05 14:23 | disposition home or self-care (01) ==
LOC: ATC 00:31
DX: Z48.812 Encounter for surgical aftercare following surgery on the circulatory system (principal); Z95.2 Presence of prosthetic heart valve; E11.9 Type 2 diabetes mellitus without complications; E78.5 Hyperlipidemia, unspecified; I11.9 Hypertensive heart disease without heart failure; Z88.0 Allergy status to penicillin; Z79.4 Long term (current) use of insulin; Z79.899 Other long term (current) drug therapy; Z79.01 Long term (current) use of anticoagulants; Z87.891 Personal history of nicotine dependence; I48.91 Unspecified atrial fibrillation; K85.10 Biliary acute pancreatitis without necrosis or infection
CPT/HCPCS: 85610; J1650

== ENCOUNTER 2020-03-06 00:21 | Day surgery (SDC) | payer SELFPAY | END 2020-03-06 23:38 | disposition home or self-care (01) | LOC: ATC 00:21 | DX: I05.0 Rheumatic mitral stenosis (principal); E11.9 Type 2 diabetes mellitus without complications; I10 Essential (primary) hypertension; N40.0 Benign prostatic hyperplasia without lower urinary tract symptoms; E78.5 Hyperlipidemia, unspecified; I48.91 Unspecified atrial fibrillation; D64.9 Anemia, unspecified; Z95.2 Presence of prosthetic heart valve; Z79.4 Long term (current) use of insulin; Z79.01 Long term (current) use of anticoagulants; Z79.899 Other long term (current) drug therapy; Z88.0 Allergy status to penicillin; Z87.891 Personal history of nicotine dependence; Z86.73 Personal history of transient ischemic attack (TIA), and cerebral infarction without residual deficits ==

== ENCOUNTER 2021-02-03 03:04 | Emergency (ER) | payer OTHER ==
[~2021-02-03] VITALS: Ht 170.2 cm; Wt 93.4 kg
[2021-02-03 03:40] LABS: BASOPHILS ABSOLUTE AUTO 0.05 K/mm3 (0.00-0.23); BASOPHILS PERCENT AUTO 1 % (0-2); EOSINOPHILS ABSOLUTE AUTO 0.18 K/mm3 (0.00-0.68); EOSINOPHILS PERCENT AUTO 2 % (0-6); Hematocrit 34.1 % (37.0-53.0); Hemoglobin 11.4 g/dL (13.5-17.5); IMMATURE GRAN ABSOLUTE AUTO 0.04 K/mm3 (0.00-0.10); IMMATURE GRAN PERCENT AUTO 0 % (0-1); LYMPHOCYTES ABSOLUTE AUTO 1.81 K/mm3 (0.84-5.20); LYMPHOCYTES PERCENT AUTO 20 % (21-46); MONOCYTES ABSOLUTE AUTO 0.96 K/mm3 (0.16-1.47); MONOCYTES PERCENT AUTO 10 % (4-13); Mean Corpuscular HGB 32.6 pg (26.0-34.0); Mean Corpuscular HGB Conc 33.4 g/dL (31.5-36.5); Mean Corpuscular Volume 97 fL (80-100); Mean Platelet Volume 11.5 fL (9.1-12.4); NEUTROPHILS ABSOLUTE AUTO 6.18 K/mm3 (1.96-9.15); NEUTROPHILS PERCENT AUTO 67 % (41-73); Platelet Count 144 K/mm3 (150-400); RDW Coefficient Variation 13.2 % (11.7-14.2); RDW Standard Deviation 46.8 fL (35.1-46.3); White Blood Cell Count 9.22 K/mm3 (4.00-11.30)
[2021-02-03 03:59] LABS: Albumin/Globulin Ratio 0.8 (0.8-1.8); Bilirubin, Total 0.5 mg/dL (0.1-1.0); Bun/Creatinine Ratio 24.4 (12.0-20.0); Calcium, Blood 8.8 mg/dL (8.5-10.1); Creatinine, Blood 1.64 mg/dL (0.60-1.20); Globulin, Blood 3.9 g/dL (2.2-4.0); Potassium, Blood 4.3 mmol/L (3.5-5.5); Total Protein, Blood 6.9 g/dL (6.4-8.2); Troponin I 0.036 ng/mL (0.000-0.040)
== END 2021-02-03 06:10 | disposition home or self-care (01) ==
LOC: ER 03:04
PROVIDERS: Emergency Medicine
DX: I48.92 Unspecified atrial flutter (principal); E11.9 Type 2 diabetes mellitus without complications; I10 Essential (primary) hypertension; E78.5 Hyperlipidemia, unspecified; D64.9 Anemia, unspecified; I48.91 Unspecified atrial fibrillation; N40.0 Benign prostatic hyperplasia without lower urinary tract symptoms; Z79.4 Long term (current) use of insulin; Z79.01 Long term (current) use of anticoagulants; Z79.899 Other long term (current) drug therapy
CPT/HCPCS: 36415; 80053; 84484; 85025; 93005; 93010; 96374; 96375; 99285-25

== ENCOUNTER 2021-02-03 16:22 | Emergency (ER) | payer OTHER ==
[~2021-02-03] VITALS: Ht 170.2 cm; Wt 92.5 kg
== END 2021-02-03 19:03 | disposition home or self-care (01) ==
LOC: ER 16:22
DX: I48.91 Unspecified atrial fibrillation (principal); E11.9 Type 2 diabetes mellitus without complications; I10 Essential (primary) hypertension; E78.5 Hyperlipidemia, unspecified; D64.9 Anemia, unspecified; N40.0 Benign prostatic hyperplasia without lower urinary tract symptoms; Z88.0 Allergy status to penicillin; Z79.4 Long term (current) use of insulin; Z79.01 Long term (current) use of anticoagulants; Z79.899 Other long term (current) drug therapy
CPT/HCPCS: 92960; 93005; 93010; 96374; 99285-25; J2704; J3010; J7030

== ENCOUNTER 2021-06-22 00:17 | Emergency (ER) | payer OTHER ==
[~2021-06-22] VITALS: Ht 172.7 cm; Wt 91.2 kg
== END 2021-06-22 03:47 | disposition home or self-care (01) ==
LOC: ER 00:17
DX: T38.3X1A Poisoning by insulin and oral hypoglycemic [antidiabetic] drugs, accidental (unintentional), initial encounter (principal); E11.9 Type 2 diabetes mellitus without complications; I10 Essential (primary) hypertension; Z79.899 Other long term (current) drug therapy; E78.5 Hyperlipidemia, unspecified; Z87.891 Personal history of nicotine dependence
CPT/HCPCS: 36415; 82947; 99283

== ENCOUNTER 2021-07-25 08:44 | Emergency (ER) | payer OTHER ==
[~2021-07-25] VITALS: Ht 172.7 cm; Wt 90.7 kg
[2021-07-25 09:29] LABS: BASOPHILS ABSOLUTE AUTO 0.05 K/mm3 (0.00-0.23); BASOPHILS PERCENT AUTO 1 % (0-2); EOSINOPHILS ABSOLUTE AUTO 0.17 K/mm3 (0.00-0.68); EOSINOPHILS PERCENT AUTO 2 % (0-6); Hematocrit 32.5 % (37.0-53.0); Hemoglobin 10.4 g/dL (13.5-17.5); IMMATURE GRAN ABSOLUTE AUTO 0.08 K/mm3 (0.00-0.10); IMMATURE GRAN PERCENT AUTO 1 % (0-1); LYMPHOCYTES ABSOLUTE AUTO 1.01 K/mm3 (0.84-5.20); LYMPHOCYTES PERCENT AUTO 10 % (21-46); MONOCYTES ABSOLUTE AUTO 0.82 K/mm3 (0.16-1.47); MONOCYTES PERCENT AUTO 8 % (4-13); Mean Corpuscular Volume 100 fL (80-100); Mean Platelet Volume 11.5 fL (9.1-12.4); NEUTROPHILS ABSOLUTE AUTO 7.89 K/mm3 (1.96-9.15); NEUTROPHILS PERCENT AUTO 79 % (41-73); Platelet Count 132 K/mm3 (150-400); RDW Coefficient Variation 13.3 % (11.7-14.2); RDW Standard Deviation 48.4 fL (35.1-46.3); Red Blood Cell Count 3.25 M/mm3 (4.30-5.90); White Blood Cell Count 10.02 K/mm3 (4.00-11.30)
[2021-07-25 09:54] LABS: Albumin, Blood 2.9 g/dL (3.4-5.0); Albumin/Globulin Ratio 0.8 (0.8-1.8); Bilirubin, Total 0.5 mg/dL (0.1-1.0); Bun/Creatinine Ratio 19.9 (12.0-20.0); Calcium, Blood 8.6 mg/dL (8.5-10.1); Creatinine, Blood 1.41 mg/dL (0.60-1.20); Globulin, Blood 3.7 g/dL (2.2-4.0); Magnesium, Blood 1.7 mg/dL (1.6-2.4); Total Protein, Blood 6.6 g/dL (6.4-8.2)
== END 2021-07-25 15:25 | disposition home or self-care (01) ==
LOC: ER 08:44
PROVIDERS: Student in an Organized Health Care Education/Training Program
DX: I48.91 Unspecified atrial fibrillation (principal); R53.1 Weakness; E11.9 Type 2 diabetes mellitus without complications; I10 Essential (primary) hypertension; E78.5 Hyperlipidemia, unspecified; Z86.73 Personal history of transient ischemic attack (TIA), and cerebral infarction without residual deficits; Z87.891 Personal history of nicotine dependence; Z88.0 Allergy status to penicillin; Z79.899 Other long term (current) drug therapy; Z79.01 Long term (current) use of anticoagulants; Z79.4 Long term (current) use of insulin
CPT/HCPCS: 71046; 80053; 82947; 83735; 83880; 84484; 84702; 85025; 93005; 93010; 96374; 96375; 96376; 99284-25; A9270; J7030

== ENCOUNTER 2021-12-09 20:41 | Emergency (ER) | payer OTHER ==
[~2021-12-09] VITALS: Ht 172.7 cm; Wt 90.3 kg
== END 2021-12-09 22:53 | disposition left against medical advice (07) ==
LOC: ER 20:41
DX: U07.1 COVID-19 (principal); Z53.21 Procedure and treatment not carried out due to patient leaving prior to being seen by health care provider
CPT/HCPCS: 99283; A9270

== ENCOUNTER 2022-01-25 04:32 | Emergency (ER) | payer OTHER ==
[~2022-01-25] VITALS: Ht 170.2 cm; Wt 86.2 kg
[~2022-01-25 04:32] MED LIST changes: +BENZONATATE100 MG PO; +DESONIDE15 G1 TOP; +FELODIPINE ER5 M2 PO; +INSULANI; +JARDIANCE25 MG PO; +PREVAGEN PO
[2022-01-25 05:24] LABS: BASOPHILS ABSOLUTE AUTO 0.04 K/mm3 (0.00-0.23); BASOPHILS PERCENT AUTO 1 % (0-2); EOSINOPHILS ABSOLUTE AUTO 0.21 K/mm3 (0.00-0.68); EOSINOPHILS PERCENT AUTO 3 % (0-6); Hematocrit 29.9 % (37.0-53.0); Hemoglobin 9.4 g/dL (13.5-17.5); IMMATURE GRAN ABSOLUTE AUTO 0.02 K/mm3 (0.00-0.10); IMMATURE GRAN PERCENT AUTO 0 % (0-1); LYMPHOCYTES ABSOLUTE AUTO 0.91 K/mm3 (0.84-5.20); LYMPHOCYTES PERCENT AUTO 13 % (21-46); MONOCYTES ABSOLUTE AUTO 0.62 K/mm3 (0.16-1.47); MONOCYTES PERCENT AUTO 9 % (4-13); Mean Corpuscular HGB 32.4 pg (26.0-34.0); Mean Corpuscular HGB Conc 31.4 g/dL (31.5-36.5); Mean Corpuscular Volume 103 fL (80-100); Mean Platelet Volume 12.7 fL (9.1-12.4); NEUTROPHILS ABSOLUTE AUTO 5.44 K/mm3 (1.96-9.15); NEUTROPHILS PERCENT AUTO 75 % (41-73); Platelet Count 107 K/mm3 (150-400); RDW Standard Deviation 57.2 fL (35.1-46.3); Source, Urine Clean Catch; White Blood Cell Count 7.24 K/mm3 (4.00-11.30)
[2022-01-25 05:25] LABS: Appearance, Urine Clear (Clear); Bilirubin, Urine Neg (Neg); Blood, Urine 1+ (Neg); Color, Urine Yellow (P-Yellow); Glucose Qualitative, Urine 4+ (Neg); Ketones, Urine Neg (Neg); Leukocyte Esterase, Urine Neg (Neg); Nitrite, Urine Neg (Neg); Protein, Urine 3+ (Neg); Urobilinogen, Urine NORM (Normal)
[2022-01-25 05:42] LABS: Albumin, Blood 2.8 g/dL (3.4-5.0); Albumin/Globulin Ratio 0.8 (0.8-1.8); Bilirubin, Total 0.7 mg/dL (0.1-1.0); Bun/Creatinine Ratio 17.7 (12.0-20.0); Calcium, Blood 8.5 mg/dL (8.5-10.1); Creatinine, Blood 1.41 mg/dL (0.60-1.20); Globulin, Blood 3.3 g/dL (2.2-4.0); Potassium, Blood 3.6 mmol/L (3.5-5.5); Total Protein, Blood 6.1 g/dL (6.4-8.2)
[2022-01-25 05:48] LABS: Bacteria Rare /hpf; Red Blood Cells, Urine 0-2 /hpf (0-2); Squamous Epithelial Cells Rare /hpf (Few); White Blood Cells, Urine 0-2 /hpf (0-5)
[2022-01-25] MEDS ORDERED: ALMACONE SUSPE355 ML PO (09:36)
[2022-01-25] MEDS ORDERED: OMEP20ER PO (09:36)
== END 2022-01-25 10:07 | disposition home or self-care (01) ==
LOC: ER 04:32
PROVIDERS: Student in an Organized Health Care Education/Training Program
DX: R10.13 Epigastric pain (principal); E11.9 Type 2 diabetes mellitus without complications; I10 Essential (primary) hypertension; E78.5 Hyperlipidemia, unspecified; N40.0 Benign prostatic hyperplasia without lower urinary tract symptoms; Z88.0 Allergy status to penicillin; Z88.8 Allergy status to other drugs, medicaments and biological substances; Z79.899 Other long term (current) drug therapy; Z79.01 Long term (current) use of anticoagulants; Z79.4 Long term (current) use of insulin; Z87.891 Personal history of nicotine dependence; Z87.11 Personal history of peptic ulcer disease
CPT/HCPCS: 36415; 74177; 80053; 81001; 83690; 85025; 93005; 93010; 96374-59; 99284-25; A9270; C9113; J7030; Q9967

== ENCOUNTER → 2022-03-20 | Outpatient (CLI) | payer OTHER ==
[~2022-03-20] MED LIST changes: +ALMACONE SUSPE355 ML PO; +OMEP20ER PO
== END | disposition home or self-care (01) ==
LOC: LAB SHORT 16:55
DX: N39.0 Urinary tract infection, site not specified (principal)
CPT/HCPCS: 87086

== ENCOUNTER 2022-08-19 09:19 | Emergency (ER) | payer OTHER ==
[~2022-08-19] VITALS: Ht 177.8 cm; Wt 95.2 kg
[2022-08-19 09:49] LABS: BASOPHILS ABSOLUTE AUTO 0.04 K/mm3 (0.00-0.23); BASOPHILS PERCENT AUTO 1 % (0-2); EOSINOPHILS ABSOLUTE AUTO 0.12 K/mm3 (0.00-0.68); EOSINOPHILS PERCENT AUTO 1 % (0-6); Hematocrit 31.4 % (37.0-53.0); Hemoglobin 10.3 g/dL (13.5-17.5); IMMATURE GRAN ABSOLUTE AUTO 0.06 K/mm3 (0.00-0.10); IMMATURE GRAN PERCENT AUTO 1 % (0-1); LYMPHOCYTES ABSOLUTE AUTO 0.98 K/mm3 (0.84-5.20); LYMPHOCYTES PERCENT AUTO 11 % (21-46); MONOCYTES ABSOLUTE AUTO 0.53 K/mm3 (0.16-1.47); MONOCYTES PERCENT AUTO 6 % (4-13); Mean Corpuscular HGB 32.7 pg (26.0-34.0); Mean Corpuscular HGB Conc 32.8 g/dL (31.5-36.5); Mean Corpuscular Volume 100 fL (80-100); Mean Platelet Volume 12.3 fL (9.1-12.4); NEUTROPHILS ABSOLUTE AUTO 7.15 K/mm3 (1.96-9.15); NEUTROPHILS PERCENT AUTO 80 % (41-73); Platelet Count 86 K/mm3 (150-400); RDW Coefficient Variation 13.2 % (11.7-14.2); RDW Standard Deviation 48.7 fL (35.1-46.3); Red Blood Cell Count 3.15 M/mm3 (4.30-5.90); White Blood Cell Count 8.88 K/mm3 (4.00-11.30)
[2022-08-19 10:06] LABS: Albumin, Blood 3.1 g/dL (3.4-5.0); Albumin/Globulin Ratio 1.1 (0.8-1.8); Bilirubin, Total 0.4 mg/dL (0.1-1.0); Bun/Creatinine Ratio 18.5 (12.0-20.0); Calcium, Blood 8.7 mg/dL (8.5-10.1); Creatinine, Blood 2.05 mg/dL (0.60-1.20); Globulin, Blood 2.9 g/dL (2.2-4.0); Potassium, Blood 3.6 mmol/L (3.5-5.5)
[2022-08-19 10:57] VITALS: BP 128/89
== END 2022-08-19 10:58 | disposition home or self-care (01) ==
LOC: ER 09:19
PROVIDERS: Emergency Medicine
DX: K40.90 Unilateral inguinal hernia, without obstruction or gangrene, not specified as recurrent (principal); E11.65 Type 2 diabetes mellitus with hyperglycemia; I10 Essential (primary) hypertension; E78.5 Hyperlipidemia, unspecified; I48.91 Unspecified atrial fibrillation
CPT/HCPCS: 74018; 80053; 85025; 99284-25

== ENCOUNTER 2022-09-26 21:43 | Emergency (ER) | payer OTHER ==
[~2022-09-26] VITALS: Ht 172.7 cm; Wt 83.9 kg
[~2022-09-26 21:43] MED LIST changes: -INSULANI; +INSULANI SC
[2022-09-26 22:07] LABS: BASOPHILS ABSOLUTE AUTO 0.03 K/mm3 (0.00-0.23); BASOPHILS PERCENT AUTO 0 % (0-2); EOSINOPHILS ABSOLUTE AUTO 0.09 K/mm3 (0.00-0.68); EOSINOPHILS PERCENT AUTO 1 % (0-6); Hematocrit 29.2 % (37.0-53.0); Hemoglobin 9.9 g/dL (13.5-17.5); IMMATURE GRAN ABSOLUTE AUTO 0.02 K/mm3 (0.00-0.10); IMMATURE GRAN PERCENT AUTO 0 % (0-1); LYMPHOCYTES ABSOLUTE AUTO 1.19 K/mm3 (0.84-5.20); LYMPHOCYTES PERCENT AUTO 17 % (21-46); MONOCYTES ABSOLUTE AUTO 0.69 K/mm3 (0.16-1.47); MONOCYTES PERCENT AUTO 10 % (4-13); Mean Corpuscular HGB 33.8 pg (26.0-34.0); Mean Corpuscular HGB Conc 33.9 g/dL (31.5-36.5); Mean Corpuscular Volume 100 fL (80-100); NEUTROPHILS ABSOLUTE AUTO 5.07 K/mm3 (1.96-9.15); NEUTROPHILS PERCENT AUTO 72 % (41-73); Platelet Count 70 K/mm3 (150-400); RDW Coefficient Variation 13.3 % (11.7-14.2); RDW Standard Deviation 48.5 fL (35.1-46.3); Red Blood Cell Count 2.93 M/mm3 (4.30-5.90); White Blood Cell Count 7.09 K/mm3 (4.00-11.30)
[2022-09-26 22:11] LABS: Mean Platelet Volume 13.5 fL (9.1-12.4)
[2022-09-26 22:23] LABS: Albumin, Blood 2.8 g/dL (3.4-5.0); Albumin/Globulin Ratio 1.1 (0.8-1.8); Bilirubin, Total 0.6 mg/dL (0.1-1.0); Bun/Creatinine Ratio 9.6 (12.0-20.0); Calcium, Blood 8.3 mg/dL (8.5-10.1); Creatinine, Blood 2.18 mg/dL (0.60-1.20); Globulin, Blood 2.5 g/dL (2.2-4.0); Potassium, Blood 2.7 mmol/L (3.5-5.5); Total Protein, Blood 5.3 g/dL (6.4-8.2)
[2022-09-26 23:18] LABS: Source, Urine Voided
[2022-09-26 23:21] LABS: Appearance, Urine Clear (Clear); Bilirubin, Urine Neg (Neg); Blood, Urine 2+ (Neg); Glucose Qualitative, Urine 4+ (Neg); Ketones, Urine Neg (Neg); Leukocyte Esterase, Urine Neg (Neg); Nitrite, Urine Neg (Neg); Protein, Urine 3+ (Neg); Specific Gravity, Urine 1.015 (1.003-1.022); Urobilinogen, Urine NORM (Normal)
[2022-09-26 23:32] LABS: Bacteria Few /hpf; Color, Urine Yellow (P-Yellow); Red Blood Cells, Urine 0-2 /hpf (0-2); Squamous Epithelial Cells Few /hpf (Few)
[2022-09-27 02:45] VITALS: BP 149/50
[2022-09-28] MEDS ORDERED: BRUKINSA80 MG PO (15:17)
[2022-09-28] MEDS ORDERED: INSULIN GL100 UNIT/3 SC (15:21)
[2022-09-28] MEDS ORDERED: CHLO25B PO (15:23)
[2022-09-28] MEDS ORDERED: METO100ER PO (15:25)
== END 2022-09-27 02:56 | disposition home or self-care (01) ==
LOC: ER 21:43
PROVIDERS: Emergency Medicine
DX: E11.65 Type 2 diabetes mellitus with hyperglycemia (principal); I10 Essential (primary) hypertension; Z88.0 Allergy status to penicillin; Z88.8 Allergy status to other drugs, medicaments and biological substances; Z79.899 Other long term (current) drug therapy; Z79.4 Long term (current) use of insulin; Z86.73 Personal history of transient ischemic attack (TIA), and cerebral infarction without residual deficits; Z87.891 Personal history of nicotine dependence
CPT/HCPCS: 80053; 81001; 82947; 85025; 87086; 93005; 93010; 96360; 96361; 99285-25; J1815; J7030

== ENCOUNTER 2022-09-27 10:58 | Inpatient (IN) | payer OTHER ==
[~2022-09-27] VITALS: Ht 172.7 cm; Wt 88.0 kg
[2022-09-27 11:34] LABS: BASOPHILS ABSOLUTE AUTO 0.02 K/mm3 (0.00-0.23); BASOPHILS PERCENT AUTO 0 % (0-2); EOSINOPHILS ABSOLUTE AUTO 0.03 K/mm3 (0.00-0.68); EOSINOPHILS PERCENT AUTO 0 % (0-6); Hematocrit 28.3 % (37.0-53.0); Hemoglobin 9.5 g/dL (13.5-17.5); IMMATURE GRAN ABSOLUTE AUTO 0.04 K/mm3 (0.00-0.10); IMMATURE GRAN PERCENT AUTO 1 % (0-1); LYMPHOCYTES ABSOLUTE AUTO 0.83 K/mm3 (0.84-5.20); LYMPHOCYTES PERCENT AUTO 12 % (21-46); MONOCYTES ABSOLUTE AUTO 0.56 K/mm3 (0.16-1.47); MONOCYTES PERCENT AUTO 8 % (4-13); Mean Corpuscular HGB 33.7 pg (26.0-34.0); Mean Corpuscular HGB Conc 33.6 g/dL (31.5-36.5); Mean Corpuscular Volume 100 fL (80-100); NEUTROPHILS ABSOLUTE AUTO 5.46 K/mm3 (1.96-9.15); NEUTROPHILS PERCENT AUTO 79 % (41-73); RDW Coefficient Variation 13.5 % (11.7-14.2); RDW Standard Deviation 49.9 fL (35.1-46.3); Red Blood Cell Count 2.82 M/mm3 (4.30-5.90); White Blood Cell Count 6.94 K/mm3 (4.00-11.30)
[2022-09-27 11:41] LABS: International Normalized Ratio 1.17; Prothrombin Time Results 12.2 Sec (9.7-11.5)
[2022-09-27 11:42] LABS: Source, Urine Straight Cath
[2022-09-27 11:47] LABS: Appearance, Urine Clear (Clear); Bilirubin, Urine Neg (Neg); Blood, Urine 4+ (Neg); Color, Urine Yellow (P-Yellow); Glucose Qualitative, Urine 4+ (Neg); Ketones, Urine Neg (Neg); Leukocyte Esterase, Urine Neg (Neg); Nitrite, Urine Neg (Neg); Protein, Urine 4+ (Neg); Specific Gravity, Urine 1.015 (1.003-1.022); Urobilinogen, Urine NORM (Normal)
[2022-09-27 11:50] LABS: Mean Platelet Volume 14.4 fL (9.1-12.4); Platelet Count 61 K/mm3 (150-400)
[2022-09-27 12:20] LABS: Albumin, Blood 2.5 g/dL (3.4-5.0); Bilirubin, Total 0.4 mg/dL (0.1-1.0); Bun/Creatinine Ratio 10.1 (12.0-20.0); Calcium, Blood 7.8 mg/dL (8.5-10.1); Creatinine, Blood 2.28 mg/dL (0.60-1.20); Globulin, Blood 2.5 g/dL (2.2-4.0); Potassium, Blood 2.9 mmol/L (3.5-5.5)
[2022-09-27 12:36] LABS: Bacteria Many /hpf
[2022-09-27 12:37] LABS: Renal Epithelial Rare /hpf (0-Rare)
[2022-09-27 12:38] LABS: Granular Casts 0-2 /lpf (0); Squamous Epithelial Cells Few /hpf (Few)
[2022-09-27 12:39] LABS: Mucus Light (0-Heavy); Transitional Epithelial Cells Rare /hpf (0-Rare)
[2022-09-27 14:47] LABS: Cholesterol 108 mg/dL (50-200); HDL Cholesterol 53 mg/dL (>39); LDL/HDL RATIO 0.8; Low Density Lipoprotein Chol 44 mg/dL (0-110); Triglycerides 56 mg/dL (30-160); Very Low Density Lipoprot Chol 11 mg/dL (6-32)
[2022-09-27 16:02] VITALS: BP 113/69
--- NOTE | 2022-09-27 17:59 | NUR ---
PT ARRIVED IN THE UNIT FROM [facility] VIA GURNEY TRANSFERRED TO BED VIA SLIDER SHEET, REPORT RECEIVED FROM VAL PEREIRA. PT ON CARDIZEM GTT AT 15MG/HR UPON ARRIVAL HRR AFIB AT 120'S, SBP 115'S, SATS ABOVE 95% ON RA AFEBRILE. PT ALERT ADN ORIENTED TO SELF AND PERSON ONLY HAS SOME SLURRED SPEECH AND FLIGHT OF IDEAS WHICH PROVIDER MADE AWARE, PT TO GET EVALUATED BY ALARM SIGNAL OPERATOR TROPON ELEVATED AT 2110, PT DENIES CHEST PAIN UPON ARRIVAL. HEPARIN GTT STARTED AT 15U/KG/HR. TO START LR AT 100MLS/HR WELL SOON POTASSIUM GTT IS DONE INFUSING. POWERGLIDE PLACED ON CHAPO. DAUGHTER AT THE BEDSIDE PROVIDED SOME OF THE HISTORY OF THE PT. PT KEPT NPO AWAITING DR CORBIN TO SEE PT TODAY. PT HAD SOME COUGHING EPISODES WITH ASPIRIN AND SIPS OF WATER. NO OTHER ISSUES REPORTED, WILL CONTINUE TO MONITOR UNTIL END OF SHIFT
[2022-09-27 20:40] VITALS: BP 152/99
[2022-09-27 22:59] VITALS: BP 158/52
[2022-09-28 04:11] VITALS: BP 155/96
[2022-09-28 04:35] LABS: Hematocrit 27.4 % (37.0-53.0); Hemoglobin 9.3 g/dL (13.5-17.5); Mean Corpuscular HGB 33.2 pg (26.0-34.0); Mean Corpuscular HGB Conc 33.9 g/dL (31.5-36.5); Mean Corpuscular Volume 98 fL (80-100); Platelet Count 65 K/mm3 (150-400); RDW Coefficient Variation 13.5 % (11.7-14.2); RDW Standard Deviation 48.6 fL (35.1-46.3)
[2022-09-28 04:44] LABS: Mean Platelet Volume 14.5 fL (9.1-12.4)
[2022-09-28 05:10] LABS: Albumin, Blood 2.4 g/dL (3.4-5.0); Bilirubin, Total 0.3 mg/dL (0.1-1.0); Bun/Creatinine Ratio 10.3 (12.0-20.0); Calcium, Blood 8.1 mg/dL (8.5-10.1); Creatinine, Blood 1.94 mg/dL (0.60-1.20); Globulin, Blood 2.4 g/dL (2.2-4.0); Potassium, Blood 2.5 mmol/L (3.5-5.5); Total Protein, Blood 4.8 g/dL (6.4-8.2)
--- NOTE | 2022-09-28 07:30 | NUR ---
SHIFT SUMMARY PATIENT ALERT AND ORIENTED TO SELF. HE STARTED THE SHIFT WITH EXPRESSIVE APHASIA BUT SEEMED TO BE ORIENTED X 3-4. PATIENT BECAME CONFUSED OVERNIGHT PULLED TWO IV'S OUT, WAS PLACED ON CAMERA, AND COMBATIVE AT ONE POINT WHEN TRYING TO REPOSITION HIM. PATIENT IS AWAKE AND PLEASANT THIS MORNING. PATIENT'S BLOOD SUGAR WAS 130 AT BEGINNING OF SHIFT. PATIENT'S DAUGHTER REPORTED THAT HE TYPICALLY TAKES 15 UNITS GLARGINE IN THE EVENING, PATIENT CONFIRMED, HE WAS SCHEDULED TO RECEIVE 30 UNITS GLARGINE PER EMAR THIS RN CALLED THE GLO[employer]IL[employer] PLACER RESIDENT AND INFORMED HER OF THE PATIENT'S HOME DOSE GLARGINE AND THAT HIS BLOOD SUGAR WAS OVER 600 IN THE ER. THE EVENING GLARGINE WAS CHANGED TO 15 UNITS PER THE RESIDENT. ON THE MORNING LABS PATIENT'S GLUCOSE WAS 48, PATIENT MEDICATED WITH AN AMP OF D50. PATIENT ABLE TO BE REMOVED FROM CARDIZEM DRIP AFTER BEING GIVEN PO METOPROLOL. WILL CONTINUE TO MONITOR. CALL LIGHT WITHIN REACH.
[2022-09-28 08:06] VITALS: BP 168/4; BP 168/40
[2022-09-28 11:40] VITALS: BP 111/95
--- NOTE | 2022-09-28 12:48 | NUR ---
Request for home medication list was faxed this morning to the AOD at the [facility] at approx. 10 am; no reply so called the AOD and was told that it needs to be faxed to the [place] office. This was done at 1130 am.
[2022-09-28 13:00] LABS: Anti-Xa UFH, PHA Monitoring 0.7 IU/mL; International Normalized Ratio 1.16; Prothrombin Time Results 12.1 Sec (9.7-11.5)
[2022-09-28 14:21] LABS: Bun/Creatinine Ratio 10.2 (12.0-20.0); Calcium, Blood 8.3 mg/dL (8.5-10.1); Creatinine, Blood 1.87 mg/dL (0.60-1.20); Potassium, Blood 4.1 mmol/L (3.5-5.5)
[2022-09-28] MEDS ORDERED: BRUKINSA80 MG PO (15:17)
[2022-09-28] MEDS ORDERED: INSULIN GL100 UNIT/3 SC (15:21)
[2022-09-28] MEDS ORDERED: CHLO25B PO (15:23)
[2022-09-28] MEDS ORDERED: METO100ER PO (15:25)
[2022-09-28 16:57] VITALS: BP 147/90
--- NOTE | 2022-09-28 17:07 | NUR ---
RN/ DAY SHIFT SUMMARY MORNING REPORT RECEIVED DURING BEDSIDE GREETING WITH THE PATIENT. MEDICATIONS WERE PASSES AND DAILY ASSESSMENT WAS COMPLETED WITH NO COMPLICATIONS. THE PATIENT SEEMS TO BE SLIGHTLY CONFUSED BUT IS ABLE TO NORMALIZE AT THE TIME OF THE ASSESSMENT. THE PATIENT HAS BEEN HEMODYNAMICALLY STABLE ALL DAY WITH NORMALIZING BLOOD GLUCOSE LEVELS. THE PATIENT SEEMS TO BE GETTING MORE COMFUSED THE EVENING IS COMMING. THE HAS RECEIVED A BATH AND HAS GOTTEN UP TO THE BATHROOM AND SEEMS TO BE SOMEWHAT STABLE WITH SLIGHT WOBBLEING. HE THEN HAD A SLIGHTLY ELEVATED GLOOD GLUCOSE IN THE 200'S AND WAS TREATED WITH INSULIN. HE IS PLEASANTLY CONFUSED AT THIS TIME AND IS CONTINUING WITH VIDEO MONITORING. WILL CONTINUE TO MONITOR.
[2022-09-28 20:49] VITALS: BP 173/65
[2022-09-28 23:29] VITALS: BP 154/82
[2022-09-29 03:12] VITALS: BP 107/85
[2022-09-29 04:26] LABS: BASOPHILS ABSOLUTE AUTO 0.04 K/mm3 (0.00-0.23); BASOPHILS PERCENT AUTO 1 % (0-2); EOSINOPHILS ABSOLUTE AUTO 0.32 K/mm3 (0.00-0.68); EOSINOPHILS PERCENT AUTO 4 % (0-6); Hemoglobin 9.2 g/dL (13.5-17.5); IMMATURE GRAN ABSOLUTE AUTO 0.03 K/mm3 (0.00-0.10); IMMATURE GRAN PERCENT AUTO 0 % (0-1); LYMPHOCYTES ABSOLUTE AUTO 1.64 K/mm3 (0.84-5.20); LYMPHOCYTES PERCENT AUTO 19 % (21-46); MONOCYTES ABSOLUTE AUTO 0.74 K/mm3 (0.16-1.47); MONOCYTES PERCENT AUTO 9 % (4-13); Mean Corpuscular HGB 32.9 pg (26.0-34.0); Mean Corpuscular HGB Conc 32.9 g/dL (31.5-36.5); Mean Corpuscular Volume 100 fL (80-100); NEUTROPHILS ABSOLUTE AUTO 5.96 K/mm3 (1.96-9.15); NEUTROPHILS PERCENT AUTO 68 % (41-73); Platelet Count 61 K/mm3 (150-400); RDW Standard Deviation 51.3 fL (35.1-46.3); White Blood Cell Count 8.73 K/mm3 (4.00-11.30)
[2022-09-29 04:41] LABS: Anti-Xa UFH, PHA Monitoring 0.88 IU/mL; International Normalized Ratio 1.42; Prothrombin Time Results 14.6 Sec (9.7-11.5)
[2022-09-29 04:43] LABS: Albumin, Blood 2.4 g/dL (3.4-5.0); Bilirubin, Total 0.4 mg/dL (0.1-1.0); Bun/Creatinine Ratio 11.5 (12.0-20.0); Calcium, Blood 8.1 mg/dL (8.5-10.1); Creatinine, Blood 1.65 mg/dL (0.60-1.20); Globulin, Blood 2.3 g/dL (2.2-4.0); Potassium, Blood 3.3 mmol/L (3.5-5.5); Total Protein, Blood 4.7 g/dL (6.4-8.2)
--- NOTE | 2022-09-29 05:04 | NUR ---
SHIFT SUMMARY THIS RN ASSUMED CARE OF PATIENT AT 1900. PATIENT HAS BEEN ALERT AND ORIENTED X2-3 DURING THIS SHIFT. CONFUSED WITH A FLIGHT OF IDEAS AT TIMES AND HAS BEEN ASKING TO "DRIVE HOME" DURING THE SHIFT. PATIENT CALM AND COOPERATIVE WITH CARE. ABLE TO MAKE NEEDS KNOWN. BP STABLE. SR 1ST DEGREE HB, BBB, WITH HR 60-70'S. AFEBRILE. SPO2 >92% ON RA. CAMERA IN ROOM AND BED ALARM ON FOR SAFETY. HEP GTT AND LR INFUSING PER EMAR. BED IN LOWEST POSITION AND CALL LIGHT WITHIN REACH. THIS RN WILL CONTINUE TO MONITOR UNTIL SHIFT CHANGE AT 0700.
[2022-09-29 08:15] VITALS: BP 155/53
--- NOTE | 2022-09-29 16:36 | NUR ---
DAYSHIFT SUMMARY Patient transferred from PCU, AOx2. Video surveillance in place, patient calls appropriately for help during the day. Heparin gtt infusing, pharmacy to dose. CBGs WNL, no SSI needed. Vitals stable. Will continue plan of care.
[2022-09-29 19:28] VITALS: BP 132/61
[2022-09-30 01:39] LABS: International Normalized Ratio 1.76; Prothrombin Time Results 17.9 Sec (9.7-11.5)
[2022-09-30 01:41] LABS: Calcium, Blood 7.9 mg/dL (8.5-10.1); Creatinine, Blood 1.81 mg/dL (0.60-1.20); Potassium, Blood 3.5 mmol/L (3.5-5.5)
[2022-09-30 01:49] LABS: BASOPHILS ABSOLUTE AUTO 0.03 K/mm3 (0.00-0.23); BASOPHILS PERCENT AUTO 0 % (0-2); EOSINOPHILS ABSOLUTE AUTO 0.28 K/mm3 (0.00-0.68); EOSINOPHILS PERCENT AUTO 4 % (0-6); Hemoglobin 8.2 g/dL (13.5-17.5); IMMATURE GRAN ABSOLUTE AUTO 0.02 K/mm3 (0.00-0.10); IMMATURE GRAN PERCENT AUTO 0 % (0-1); LYMPHOCYTES ABSOLUTE AUTO 1.39 K/mm3 (0.84-5.20); LYMPHOCYTES PERCENT AUTO 20 % (21-46); MONOCYTES PERCENT AUTO 8 % (4-13); Mean Corpuscular HGB 33.3 pg (26.0-34.0); Mean Corpuscular HGB Conc 32.8 g/dL (31.5-36.5); Mean Corpuscular Volume 102 fL (80-100); NEUTROPHILS ABSOLUTE AUTO 4.79 K/mm3 (1.96-9.15); NEUTROPHILS PERCENT AUTO 68 % (41-73); Platelet Count 57 K/mm3 (150-400); RDW Coefficient Variation 13.9 % (11.7-14.2); RDW Standard Deviation 51.5 fL (35.1-46.3); Red Blood Cell Count 2.46 M/mm3 (4.30-5.90); White Blood Cell Count 7.11 K/mm3 (4.00-11.30)
[2022-09-30 03:56] VITALS: BP 111/47
--- NOTE | 2022-09-30 04:59 | NUR ---
SHIFT SUMMARY 86 YR M ADMITTED ON 09/27/22 FOR AFIB. FULL CODE. NO ACUTE CHANGES THIS SHIFT. PT IS OBVIOUSLY CONFUSED AND TALKS ABOUT RANDOM THINGS THAT DON'T REALLY MAKE SENSE. HE IS BEING OBSERVED BY REMOTE MONITORING AND HAS ONLY BEEN IMPULSIVE TO GET OUT OF BED ON HIS OWN ONCE THIS SHIFT. HE FELL ASLEEP A COUPLE OF HOURS INTO THIS SHIFT AND HAS SLEPT ALL NIGHT. NO REPORTS FROM MODELING AND SIMULATION ANALYST THIS SHIFT.
[2022-09-30 07:25] VITALS: BP 122/84
[2022-09-30 15:45] VITALS: BP 128/53
--- NOTE | 2022-09-30 16:15 | NUR ---
DAYSHIFT SUMMARY No acute changes to patient status, Plan is to continue Heparin gtt, and administer Warfarin, once INR is therapeutic Heparin will be DC'd. No changes in Heparin rate this shift. Vitals stable, CBG WNL no SSI coverage needed. Increased confusion noted in the evenings, patient is pleasant & redirectable. Will continue plan of care.
[2022-09-30 19:19] VITALS: BP 136/41
[2022-09-30 22:06] VITALS: BP 141/43
[2022-10-01] VITALS (8 sets, daily range): BP systolic 67–158; BP diastolic 27–56
--- NOTE | 2022-10-01 05:17 | NUR ---
SHIFT SUMMARY 86 YR M ADMITTED ON 09/27/22 FOR AFIB. FULL CODE. NO ACUTE CHANGES THIS SHIFT. PT APPEARS TO BE LESS CONFUSED THIS SHIFT THAN HE WAS LAST NIGHT. HE MADE NO ATTEMPTS TO GET UP ON HIS OWN W/O ASSISTANCE AND HIS SPEECH MORE FOCUSED AND REALISTIC. PER SERVICES MANAGER PT HAD (1) ONE MINUTE RUN OF TRIGEMINY THIS SHIFT. PT DOES NOT EXHIBIT ANY SIGNS OR SYMPTOMS OF STRESS OR ANXIETY. HE HAS SLEPT FOR MOST OF THIS SHIFT.
[2022-10-01 06:03] LABS: BASOPHILS ABSOLUTE AUTO 0.03 K/mm3 (0.00-0.23); BASOPHILS PERCENT AUTO 0 % (0-2); EOSINOPHILS ABSOLUTE AUTO 0.21 K/mm3 (0.00-0.68); EOSINOPHILS PERCENT AUTO 3 % (0-6); Hematocrit 23.1 % (37.0-53.0); Hemoglobin 7.7 g/dL (13.5-17.5); IMMATURE GRAN ABSOLUTE AUTO 0.02 K/mm3 (0.00-0.10); IMMATURE GRAN PERCENT AUTO 0 % (0-1); LYMPHOCYTES ABSOLUTE AUTO 0.89 K/mm3 (0.84-5.20); LYMPHOCYTES PERCENT AUTO 12 % (21-46); MONOCYTES ABSOLUTE AUTO 0.61 K/mm3 (0.16-1.47); MONOCYTES PERCENT AUTO 8 % (4-13); Mean Corpuscular HGB 33.6 pg (26.0-34.0); Mean Corpuscular HGB Conc 33.3 g/dL (31.5-36.5); Mean Corpuscular Volume 101 fL (80-100); NEUTROPHILS ABSOLUTE AUTO 5.99 K/mm3 (1.96-9.15); NEUTROPHILS PERCENT AUTO 77 % (41-73); Platelet Count 66 K/mm3 (150-400); RDW Standard Deviation 51.6 fL (35.1-46.3); Red Blood Cell Count 2.29 M/mm3 (4.30-5.90); White Blood Cell Count 7.75 K/mm3 (4.00-11.30)
[2022-10-01 06:07] LABS: Mean Platelet Volume 14.5 fL (9.1-12.4)
[2022-10-01 06:21] LABS: International Normalized Ratio 1.96; Prothrombin Time Results 19.8 Sec (9.7-11.5)
[2022-10-01 06:32] LABS: Bun/Creatinine Ratio 13.9 (12.0-20.0); Calcium, Blood 8.3 mg/dL (8.5-10.1); Creatinine, Blood 1.73 mg/dL (0.60-1.20); Potassium, Blood 3.3 mmol/L (3.5-5.5)
[2022-10-01 12:35] LABS: Hemoglobin 8.3 g/dL (13.5-17.5)
[2022-10-01 12:50] LABS: International Normalized Ratio 1.79; Prothrombin Time Results 18.2 Sec (9.7-11.5)
--- NOTE | 2022-10-01 14:05 | NUR ---
RN NOTE MR RINCON IS ORIENTATED TO HIS NAME, NOT HIS DATE OF , KNOW'S HE IS IN HOSPITAL IN [place]. GENERALLY VERY CONFUSED, UNABLE TO FOLLOW CONVERSATION HE SAID THAT HE LIVES ALONE AND HAS FAMILY CLOSE BY, NOT CONFIRMED HE HAS NOT HAD VISITORS YET TODAY. HEPARIN DISCONTINUED [address] GARCIA. CALL FROM [employer] THIS AM WHILE DR GARCIA WAS AT BEDSIDE AND REPORTED ST CHANGES ON TELEMTRY. PT DENIED NEW SYMPTOMS OR CHEST PAIN. ECG DONE ORDERED AND SEEN BY DR GARCIA. 1 PERSON ASSIST TO CHAIR WITH FWW. POOR FINE DEXTERITY OF FINGERS NOTED WHEN HOLDING PILL CUP. VIDEO MONITORING IN PLACE FOR PT SAFETLY - NO CALLS FROM MONITOR. CALL LIGHT IN REACH.
--- NOTE | 2022-10-01 16:46 | NUR ---
SHIFT SUMMARY SEE RN NOTE 1405HRS. HEPARIN GTT RESTARTED AT 1600HRS. FAMILY AT BEDSIDE THIS AFTERNOON, DAUGHTER CONFIRMED THAT MR RINCON LIVES ALONE WITH FAMILY IN [place] AND THAT THE PLAN IS FOR HOME HEALTH CARE ON DISCHARGE. NO FURTHER CALLS FROM CAR RETARDER OPERATOR AFTER CALL THAT WAS NOTED THIS MORNING. PT UP TO BATHROOM WITH FWW AND 1 PERSON ASSIST, CONTINENT OF URINE, SAT OUT IN RECLINER. NOW IN BED, BED LOW, CALL LIGHT IN REACH AND BED ALARM ON.
--- NOTE | 2022-10-01 20:10 | NUR ---
BLOOD PRESSURE CORRECTION MANUAL BP TAKEN 158/56
--- NOTE | 2022-10-02 04:12 | NUR ---
SHIFT SUMMARY PLEASENTLY CONFUSED PT FOLLOWS COMMANDS NO S/S OF DISTRESSHAS BEEN CONTINENT FOR ME USING URINAL . UNABLE TO USE CALL BUTTON BUT CALLS OUT WHEN NEEDING HELP. EXCITED TO GO HOME.
[2022-10-02 04:43] VITALS: BP 96/24
[2022-10-02 06:01] LABS: BASOPHILS ABSOLUTE AUTO 0.02 K/mm3 (0.00-0.23); BASOPHILS PERCENT AUTO 0 % (0-2); EOSINOPHILS ABSOLUTE AUTO 0.27 K/mm3 (0.00-0.68); EOSINOPHILS PERCENT AUTO 4 % (0-6); Hemoglobin 7.1 g/dL (13.5-17.5); IMMATURE GRAN ABSOLUTE AUTO 0.04 K/mm3 (0.00-0.10); IMMATURE GRAN PERCENT AUTO 1 % (0-1); LYMPHOCYTES ABSOLUTE AUTO 1.04 K/mm3 (0.84-5.20); LYMPHOCYTES PERCENT AUTO 14 % (21-46); MONOCYTES ABSOLUTE AUTO 0.82 K/mm3 (0.16-1.47); MONOCYTES PERCENT AUTO 11 % (4-13); Mean Corpuscular HGB 33.6 pg (26.0-34.0); Mean Corpuscular HGB Conc 33.8 g/dL (31.5-36.5); Mean Corpuscular Volume 100 fL (80-100); NEUTROPHILS ABSOLUTE AUTO 5.28 K/mm3 (1.96-9.15); NEUTROPHILS PERCENT AUTO 71 % (41-73); Platelet Count 80 K/mm3 (150-400); RDW Coefficient Variation 14.1 % (11.7-14.2); RDW Standard Deviation 49.4 fL (35.1-46.3); Red Blood Cell Count 2.11 M/mm3 (4.30-5.90); White Blood Cell Count 7.47 K/mm3 (4.00-11.30)
[2022-10-02 06:02] LABS: Mean Platelet Volume 14.5 fL (9.1-12.4)
[2022-10-02 06:04] LABS: Anti-Xa UFH, PHA Monitoring 0.38 IU/mL; International Normalized Ratio 2.66; Prothrombin Time Results 26.4 Sec (9.7-11.5)
[2022-10-02 06:05] LABS: Albumin, Blood 2.1 g/dL (3.4-5.0); Anion Gap 3 mmol/L (6-16); Blood Urea Nitrogen 27 mg/dL (8-24); Bun/Creatinine Ratio 16.2 (12.0-20.0); CO2, Blood 28 mmol/L (21-32); Calcium, Blood 7.8 mg/dL (8.5-10.1); Chloride, Blood 114 mmol/L (98-108); Creatinine, Blood 1.67 mg/dL (0.60-1.20); Glomerular Filtration Rate 40 (60-); Glucose, Blood 138 mg/dL (70-99); Magnesium, Blood 1.5 mg/dL (1.6-2.4); Phosphorus, Blood 3.1 mg/dL (2.5-4.9); Potassium, Blood 3.9 mmol/L (3.5-5.5); Sodium, Blood 145 mmol/L (136-145)
[2022-10-02 09:19] VITALS: BP 124/51
[2022-10-02 11:04] LABS: RETIC HGB EQUIVALENT 36.4 pg (28.20-36.60); RETICULOCYTE ABSOLUTE 0.0531 M/mm3 (0.0200-0.1100); RETICULOCYTE COUNT PERCENT 2.36 % (0.50-2.50)
[2022-10-02 12:03] LABS: Percent Saturation 16.5 % (20.0-50.0)
[2022-10-02 13:28] LABS: BASOPHILS ABSOLUTE AUTO 0.02 K/mm3 (0.00-0.23); BASOPHILS PERCENT AUTO 0 % (0-2); EOSINOPHILS ABSOLUTE AUTO 0.25 K/mm3 (0.00-0.68); EOSINOPHILS PERCENT AUTO 3 % (0-6); Hemoglobin 7.2 g/dL (13.5-17.5); IMMATURE GRAN ABSOLUTE AUTO 0.03 K/mm3 (0.00-0.10); IMMATURE GRAN PERCENT AUTO 0 % (0-1); LYMPHOCYTES ABSOLUTE AUTO 0.86 K/mm3 (0.84-5.20); LYMPHOCYTES PERCENT AUTO 12 % (21-46); MONOCYTES ABSOLUTE AUTO 0.88 K/mm3 (0.16-1.47); MONOCYTES PERCENT AUTO 12 % (4-13); Mean Corpuscular HGB 32.7 pg (26.0-34.0); Mean Corpuscular HGB Conc 32.7 g/dL (31.5-36.5); Mean Corpuscular Volume 100 fL (80-100); NEUTROPHILS ABSOLUTE AUTO 5.26 K/mm3 (1.96-9.15); NEUTROPHILS PERCENT AUTO 72 % (41-73); Platelet Count 86 K/mm3 (150-400); RDW Coefficient Variation 14.3 % (11.7-14.2); RDW Standard Deviation 51.8 fL (35.1-46.3)
[2022-10-02 13:58] LABS: Mean Platelet Volume 13.3 fL (9.1-12.4)
--- NOTE | 2022-10-02 15:45 | NUR ---
SHIFT SUMMARY: PT A&O X2-3. PT PLEASANT AND COOPERATIVE WITH CARE. PT PLEASANTLY CONFUSED. PT RECEIVED ONE TIME DOSE OF LASIX TODAY. PT CONTINENT BUT NEEDS ASSISTANCE WITH URINAL. PT HAVING PAIN IN BILAT FEET AND MULTIPLE TOES THIS SHIFT. PROVIDED TYLENOL WHICH APPEARED TO SLIGHTLY HELP BUT STILL PAINFUL. HGB CAME BACK AT 7.2 THIS AFTERNOON. PT DAUGHTER ASKED IF PT WOULD HOPEFULLY RECEIVE ENDOSCOPY THEY DO NOT KNOW WHERE BLEED IS COMING FROM. RECEIVED CALL FROM TELE THIS MORNING STATING PT WAS GOING IN AND OUT OF SINUS RHYTHM TO IDIOVENTRICULAR RHYTHM. NO C/O CHEST PAIN OR SOB. PT RECEIVED ONE TIME BAG OF MAGNESIUM THIS MORNING TOLERATING WELL. CALL LIGHT IN REACH. BED IN LOWEST POSITION. WILL CONTINUE TO MONITOR.
[2022-10-02 15:49] VITALS: BP 148/44
[2022-10-02 21:10] VITALS: BP 118/58
[2022-10-03] VITALS (10 sets, daily range): BP systolic 105–193; BP diastolic 29–65
--- NOTE | 2022-10-03 04:02 | NUR ---
SHIFT ASSESMENT BEEN ACTIVE DAY FOR PT HAS GROWN MORE CONFUSED AND HAS GOTTEN OUT OF BED SEVERAL TIMES . C/O RIGHT HIP PAIN AND WAS MEDICATED, PT SEEMS MORE RELAXED AT THIS POINT.
[2022-10-03 06:32] LABS: BASOPHILS ABSOLUTE AUTO 0.01 K/mm3 (0.00-0.23); BASOPHILS PERCENT AUTO 0 % (0-2); EOSINOPHILS ABSOLUTE AUTO 0.22 K/mm3 (0.00-0.68); EOSINOPHILS PERCENT AUTO 3 % (0-6); Hematocrit 20.5 % (37.0-53.0); Hemoglobin 6.8 g/dL (13.5-17.5); IMMATURE GRAN ABSOLUTE AUTO 0.04 K/mm3 (0.00-0.10); IMMATURE GRAN PERCENT AUTO 1 % (0-1); LYMPHOCYTES ABSOLUTE AUTO 0.87 K/mm3 (0.84-5.20); LYMPHOCYTES PERCENT AUTO 12 % (21-46); MONOCYTES ABSOLUTE AUTO 0.91 K/mm3 (0.16-1.47); MONOCYTES PERCENT AUTO 12 % (4-13); Mean Corpuscular HGB 33.2 pg (26.0-34.0); Mean Corpuscular HGB Conc 33.2 g/dL (31.5-36.5); Mean Corpuscular Volume 100 fL (80-100); NEUTROPHILS PERCENT AUTO 73 % (41-73); Platelet Count 92 K/mm3 (150-400); RDW Coefficient Variation 14.6 % (11.7-14.2); RDW Standard Deviation 52.3 fL (35.1-46.3); Red Blood Cell Count 2.05 M/mm3 (4.30-5.90); White Blood Cell Count 7.45 K/mm3 (4.00-11.30)
[2022-10-03 06:42] LABS: International Normalized Ratio 2.7; Prothrombin Time Results 26.8 Sec (9.7-11.5)
[2022-10-03 06:44] LABS: Mean Platelet Volume 13.4 fL (9.1-12.4)
[2022-10-03 07:02] LABS: Albumin, Blood 2.2 g/dL (3.4-5.0); Anion Gap 5 mmol/L (6-16); Bilirubin, Direct 0.2 mg/dL (0.0-0.3); Bilirubin, Indirect 0.4 mg/dL (0.1-0.7); Bilirubin, Total 0.6 mg/dL (0.1-1.0); Blood Urea Nitrogen 30 mg/dL (8-24); Bun/Creatinine Ratio 16.6 (12.0-20.0); CO2, Blood 28 mmol/L (21-32); Chloride, Blood 112 mmol/L (98-108); Creatinine, Blood 1.81 mg/dL (0.60-1.20); Glomerular Filtration Rate 36 (60-); Glucose, Blood 151 mg/dL (70-99); Lactate Dehydrogenase (Ld),Bld 239 U/L (100-240); Magnesium, Blood 1.7 mg/dL (1.6-2.4); Phosphorus, Blood 3.4 mg/dL (2.5-4.9); Potassium, Blood 3.6 mmol/L (3.5-5.5); Sodium, Blood 145 mmol/L (136-145)
[2022-10-03 16:04] LABS: Stool Occult Blood Guaiac 1 Pos (Neg)
[2022-10-03 17:19] LABS: BASOPHILS ABSOLUTE AUTO 0.02 K/mm3 (0.00-0.23); BASOPHILS PERCENT AUTO 0 % (0-2); EOSINOPHILS ABSOLUTE AUTO 0.32 K/mm3 (0.00-0.68); EOSINOPHILS PERCENT AUTO 4 % (0-6); Hematocrit 25.9 % (37.0-53.0); Hemoglobin 8.6 g/dL (13.5-17.5); IMMATURE GRAN ABSOLUTE AUTO 0.08 K/mm3 (0.00-0.10); IMMATURE GRAN PERCENT AUTO 1 % (0-1); LYMPHOCYTES ABSOLUTE AUTO 0.81 K/mm3 (0.84-5.20); LYMPHOCYTES PERCENT AUTO 9 % (21-46); MONOCYTES ABSOLUTE AUTO 1.15 K/mm3 (0.16-1.47); MONOCYTES PERCENT AUTO 13 % (4-13); Mean Corpuscular HGB 32.6 pg (26.0-34.0); Mean Corpuscular HGB Conc 33.2 g/dL (31.5-36.5); Mean Corpuscular Volume 98 fL (80-100); NEUTROPHILS ABSOLUTE AUTO 6.46 K/mm3 (1.96-9.15); NEUTROPHILS PERCENT AUTO 73 % (41-73); Platelet Count 115 K/mm3 (150-400); RDW Coefficient Variation 16.3 % (11.7-14.2); RDW Standard Deviation 57.4 fL (35.1-46.3); Red Blood Cell Count 2.64 M/mm3 (4.30-5.90); White Blood Cell Count 8.84 K/mm3 (4.00-11.30)
[2022-10-03 17:24] LABS: Mean Platelet Volume 13.2 fL (9.1-12.4)
--- NOTE | 2022-10-03 18:43 | NUR ---
SHIFT SUMMARY PATIENT FORGETFUL AND EASILY CONFUSED. PATIENT NOT REMEMBERING EATING MEALS AND LOSING TRACK OF TIME. SOMETIMES HAVING TROUBLES GETTING THOUGHTS OUT. PATIENT ABLE TO TRANSFER WITH ASSISTANCE. PATIENT UP TO CHAIR AND WALKING TO BATHROOM. PATIENT WORKED WITH PT AND OT TODAY. PATIENT RECIEVED 1 UNIT OF PRBC'S AND AN IRON INFUSION. POST INFUSION CBC DONE. HOME MEDS BROUGHT IN AND VERIFIED BY PHARMACY.
--- NOTE | 2022-10-03 21:17 | NUR ---
CALLED DR. CLEMENT REGARDING PTS B/P OF 110/33 WITH A MAP OF 58.67. PER DR. CLEMENT HOLD B/P MEDICATIONS THIS EVENING (CADURA AND METOPROLOL).
[2022-10-04 02:27] VITALS: BP 137/27
[2022-10-04 02:35] VITALS: BP 105/35
--- NOTE | 2022-10-04 04:35 | NUR ---
SHIFT SUMMARY; NO ACUTE CHANGES OVERNIGHT. THE PT IS AXO X3, CONFUSED AT TIMES. THE PT HAS BEEN SLEEPING IN BED FOR THE ENTIRETY OF THE NIGHT. TELE IS IN PLACE. THE PTS DIASTOLIC BLOOD PRESSURE HAS BEEN LOW THIS SHIFT, IN THE 30'S. NOTIFIED WHO ORDERS WE HOLD THE PTS NIGHT TIME B/P MEDICATIONS. THE PT USES THE URINAL INDEPENDENTY IN THE BED. THE PT DENIES ANY PAIN, SOB, CHEST PAIN/PRESSURE OR N/V THIS SHIFT. CURRENTLY THE PT IS SLEEPING IN BED WITH THE BED IN THE LOWEST POSITION AND THE CALL LIGHT AT BEDSIDE.
[2022-10-04 06:03] LABS: BASOPHILS ABSOLUTE AUTO 0.07 K/mm3 (0.00-0.23); BASOPHILS PERCENT AUTO 1 % (0-2); EOSINOPHILS ABSOLUTE AUTO 0.29 K/mm3 (0.00-0.68); EOSINOPHILS PERCENT AUTO 3 % (0-6); Hematocrit 24.8 % (37.0-53.0); Hemoglobin 8.5 g/dL (13.5-17.5); IMMATURE GRAN ABSOLUTE AUTO 0.17 K/mm3 (0.00-0.10); IMMATURE GRAN PERCENT AUTO 2 % (0-1); LYMPHOCYTES ABSOLUTE AUTO 1.51 K/mm3 (0.84-5.20); LYMPHOCYTES PERCENT AUTO 17 % (21-46); MONOCYTES ABSOLUTE AUTO 1.44 K/mm3 (0.16-1.47); MONOCYTES PERCENT AUTO 16 % (4-13); Mean Corpuscular HGB 32.4 pg (26.0-34.0); Mean Corpuscular HGB Conc 34.3 g/dL (31.5-36.5); Mean Corpuscular Volume 95 fL (80-100); NEUTROPHILS ABSOLUTE AUTO 5.41 K/mm3 (1.96-9.15); NEUTROPHILS PERCENT AUTO 61 % (41-73); NRBC ABSOLUTE 0.02 K/mm3 (0.00-0.02); NRBC Auto 0.2 /100 WBC (0.0-0.2); Platelet Count 90 K/mm3 (150-400); RDW Coefficient Variation 15.9 % (11.7-14.2); RDW Standard Deviation 54.3 fL (35.1-46.3); Red Blood Cell Count 2.62 M/mm3 (4.30-5.90); White Blood Cell Count 8.89 K/mm3 (4.00-11.30)
[2022-10-04 06:05] LABS: Albumin, Blood 2.3 g/dL (3.4-5.0); Anion Gap 4 mmol/L (6-16); Blood Urea Nitrogen 32 mg/dL (8-24); Bun/Creatinine Ratio 17.5 (12.0-20.0); CO2, Blood 27 mmol/L (21-32); Calcium, Blood 8.2 mg/dL (8.5-10.1); Chloride, Blood 113 mmol/L (98-108); Creatinine, Blood 1.83 mg/dL (0.60-1.20); Glomerular Filtration Rate 36 (60-); Glucose, Blood 135 mg/dL (70-99); Magnesium, Blood 1.9 mg/dL (1.6-2.4); Phosphorus, Blood 3.3 mg/dL (2.5-4.9); Potassium, Blood 3.7 mmol/L (3.5-5.5); Sodium, Blood 144 mmol/L (136-145)
[2022-10-04 07:51] VITALS: BP 101/60
[2022-10-04 08:21] LABS: International Normalized Ratio 2.08
[2022-10-04 15:57] VITALS: BP 85/40
[2022-10-04 16:00] VITALS: BP 99/46
--- NOTE | 2022-10-04 18:32 | NUR ---
SHIFT SUMMARY NO ACUTE CHANGES THIS SHIFT. A&O X 4, VSS. HAS BEEN UP IN CHAIR FOR ALL MEALS, WILLINGLY PARTICIPATED WITH PT. NO S/S OF BLEEDING, HGB 8.5. BG'S COVERED PER EMAR. APPETITE IS GOOD. HAS RESTED OFF & ON THROUGHOUT SHIFT, NO C/O PAIN, SOB OR ANY DISCOMFORT. IS PLEASANT & COOPERATIVE WITH ALL CARE. CALL LIGHT WITHIN REACH, BED IN LOW POSITION. PLAN IS POSSIBLE DC TOMORROW WITH POSSIBLE OUT PT GI CONSULT.
[2022-10-04 19:27] VITALS: BP 81/50
--- NOTE | 2022-10-04 22:44 | NUR ---
VIRTUAL PARTY DEMONSTRATOR MONITOR WAS DISCONTINUED. PT NO LONGER EXHIBITING UNSAFE OOB BEHHAVIORS.
[2022-10-05 01:23] VITALS: BP 108/40
--- NOTE | 2022-10-05 02:44 | NUR ---
SHIFT SUMMARY NOC PT A/O X 4. PLEASANT AND COOPERATIVE WITH CARE. REMOTE MONITOR D/C PT NO LONGER IS EXHIBITING UNSAFE OOB BEHAVIORS. BED ALARM IS STILL IN PLACE AND PT IS OK WITH THAT. PT USES CALL LIGHT APPROPRIATELY WHEN NEEDING SBA WITH FWW GB TO RESTROOM. PT IS ON TELE RUNNING SINUS RHYTHM WITH 1DHB/BBB @ 80 BPM. PT HGB 8.5 OF YESTERDAY. PT HAS AM LABS AND PENDING NO ACUTE CHANGES PT SHOULD DISCHARGE HOME TODAY WITH POSSIBLE OUTPATIENT GI CONSULT FOR EGD/COLONOSCOPY TO DETERMINE IF THERE IS A BLEED. PT HAD BP OF 80/51 AND AFTER RECHECK 108/40. PT HAS BL PG IN BOTH AC'S THAT DRAW. PT IS CURRENTLY RESTING WITH BED ALARM ON, BED IN LOWEST POSITION, AND CALL LIGHT WITHIN REACH.
[2022-10-05 05:16] LABS: BASOPHILS ABSOLUTE AUTO 0.05 K/mm3 (0.00-0.23); BASOPHILS PERCENT AUTO 1 % (0-2); EOSINOPHILS ABSOLUTE AUTO 0.32 K/mm3 (0.00-0.68); EOSINOPHILS PERCENT AUTO 4 % (0-6); Hematocrit 36.8 % (37.0-53.0); Hemoglobin 11.4 g/dL (13.5-17.5); IMMATURE GRAN ABSOLUTE AUTO 0.04 K/mm3 (0.00-0.10); IMMATURE GRAN PERCENT AUTO 1 % (0-1); LYMPHOCYTES ABSOLUTE AUTO 1.31 K/mm3 (0.84-5.20); LYMPHOCYTES PERCENT AUTO 18 % (21-46); MONOCYTES ABSOLUTE AUTO 0.64 K/mm3 (0.16-1.47); MONOCYTES PERCENT AUTO 9 % (4-13); Mean Corpuscular HGB 31.3 pg (26.0-34.0); Mean Platelet Volume 9.4 fL (9.1-12.4); NEUTROPHILS ABSOLUTE AUTO 5.06 K/mm3 (1.96-9.15); NEUTROPHILS PERCENT AUTO 68 % (41-73); Platelet Count 212 K/mm3 (150-400); RDW Coefficient Variation 13.6 % (11.7-14.2); RDW Standard Deviation 50.7 fL (35.1-46.3); Red Blood Cell Count 3.64 M/mm3 (4.30-5.90); White Blood Cell Count 7.42 K/mm3 (4.00-11.30)
[2022-10-05 05:26] LABS: Mean Corpuscular Volume 101 fL (80-100)
[2022-10-05 05:32] LABS: International Normalized Ratio 1.73; Prothrombin Time Results 17.6 Sec (9.7-11.5)
[2022-10-05 05:40] LABS: Albumin, Blood 2.5 g/dL (3.4-5.0); Anion Gap 5 mmol/L (6-16); Blood Urea Nitrogen 31 mg/dL (8-24); Bun/Creatinine Ratio 17.2 (12.0-20.0); CO2, Blood 28 mmol/L (21-32); Calcium, Blood 8.3 mg/dL (8.5-10.1); Chloride, Blood 111 mmol/L (98-108); Glomerular Filtration Rate 36 (60-); Glucose, Blood 89 mg/dL (70-99); Phosphorus, Blood 2.9 mg/dL (2.5-4.9); Potassium, Blood 3.5 mmol/L (3.5-5.5); Sodium, Blood 144 mmol/L (136-145)
[2022-10-05 06:46] LABS: Anti-Xa UFH, PHA Monitoring <0.10 IU/mL
[2022-10-05 07:20] VITALS: BP 113/41
[2022-10-05 07:42] LABS: Hematocrit 27.9 % (37.0-53.0); Hemoglobin 9.1 g/dL (13.5-17.5)
--- NOTE | 2022-10-05 14:57 | NUR ---
PT IS A/O, PLESANT AND COOPERATVIE. HE IS EATING AND DRINKING WELL. HE IS ON A HEPRIN DRIP. SPOKE WITH PROVIDER ABOUT GI CONSULT. PT WAS UP TO THE CHAIR THIS SHIFT FOR MEALS. HE SLEPT INTERMITENTLY DURING THIS SHIFT. FAMILY WAS AT BEDSIDE. HE IS CURRENTLY IN THE CHAIR CALL LIGHT IS KEARA GONZALEZ.
[2022-10-05 15:48] VITALS: BP 129/52
[2022-10-05 19:14] VITALS: BP 108/50
--- NOTE | 2022-10-06 03:12 | NUR ---
SHIFT SUMMARY NOC PT A/O X 4. FORGETFUL AT TIMES. NO ACUTE CHANGES TO REPORT. PT ON TELE RUNNING SINUS RHYTHM WITH 1DHB/BBB @ 90 BPM. PT HAS CONTINUOS HEPARIN INFUSING @ 18 ML/HR. PT IS AWAITING GI CONSULT OUTPATIENT AFTER PT HAS BEEN OFF OF WARFARIN FOR 5 DAYS FOR UPPER/LOWER GI SCOPES. PT HAS BL PG IN RAY/CHAPO. PT POSSIBLE DISCHARGE TODAY PENDING LABS AND GI CONSULT CLARIFICATION. PT IS CURRENTLY RESTING WITH BED ALARM ON, BED IN LOWEST POSITION, AND CALL LIGHT WITHIN REACH.
[2022-10-06 04:56] VITALS: BP 133/40
[2022-10-06 07:28] VITALS: BP 144/48
[2022-10-06 08:43] LABS: Hematocrit 25.1 % (37.0-53.0); Hemoglobin 8.3 g/dL (13.5-17.5)
[2022-10-06 12:41] LABS: International Normalized Ratio 1.36
[2022-10-06 15:44] VITALS: BP 117/38
--- NOTE | 2022-10-06 17:34 | NUR ---
SHIFT SUMMARY IS A&O X 3-4, CAN BE FORGETFUL AT TIMES. HEP GTT INFUSING AT 18U/HR PER PHARM/MD ORDER. PT WILLINGLY PARTICIPATED WITH OT & PT TODAY. H&H STABLE, H&H 8.3 & 25.1. NO ACUTE CHANGES TODAY. CALL LIGHT WITHIN REACH, BED IN LOW POSITION. IS ABLE TO MAKE NEEDS KNOWN.
[2022-10-06 19:33] VITALS: BP 104/52
[2022-10-07 02:32] VITALS: BP 146/46
--- NOTE | 2022-10-07 04:15 | NUR ---
SHIFT SUMMARY PATIENT HAD NO ACUTE CHANGES. AXOX 3-4 W/CONFUSION AT TIMES. USES URINAL AT BEDSIDE INDEPENDENTLY. POWERGLIDES RAY/CHAPO INTACT. HEPARIN INFUSING AT 18 mL/HR. CBG 149. TELE MONITOR FIRST DEGREE, BBB @ 80. VSS/AFEBRILE. DENIES CHEST PAIN, SOB, AND N/V. COOPERATIVE WITH CARE. CALL LIGHT IN REACH. BED IN LOWEST POSITION. WILL CONTINUE TO MONITOR UNTIL DAY SHIFT NURSE ASSUMES CARE.
[2022-10-07 05:46] LABS: BASOPHILS ABSOLUTE AUTO 0.06 K/mm3 (0.00-0.23); BASOPHILS PERCENT AUTO 1 % (0-2); EOSINOPHILS ABSOLUTE AUTO 0.29 K/mm3 (0.00-0.68); EOSINOPHILS PERCENT AUTO 4 % (0-6); Hematocrit 24.7 % (37.0-53.0); Hemoglobin 7.9 g/dL (13.5-17.5); IMMATURE GRAN ABSOLUTE AUTO 0.05 K/mm3 (0.00-0.10); IMMATURE GRAN PERCENT AUTO 1 % (0-1); LYMPHOCYTES ABSOLUTE AUTO 1.72 K/mm3 (0.84-5.20); LYMPHOCYTES PERCENT AUTO 22 % (21-46); MONOCYTES ABSOLUTE AUTO 0.85 K/mm3 (0.16-1.47); MONOCYTES PERCENT AUTO 11 % (4-13); Mean Corpuscular Volume 100 fL (80-100); NEUTROPHILS ABSOLUTE AUTO 4.71 K/mm3 (1.96-9.15); NEUTROPHILS PERCENT AUTO 61 % (41-73); Platelet Count 100 K/mm3 (150-400); RDW Coefficient Variation 15.5 % (11.7-14.2); RDW Standard Deviation 55.7 fL (35.1-46.3); Red Blood Cell Count 2.47 M/mm3 (4.30-5.90); White Blood Cell Count 7.68 K/mm3 (4.00-11.30)
[2022-10-07 07:24] VITALS: BP 115/49
[2022-10-07 08:07] LABS: Albumin, Blood 2.3 g/dL (3.4-5.0); Anion Gap 7 mmol/L (6-16); Blood Urea Nitrogen 27 mg/dL (8-24); CO2, Blood 25 mmol/L (21-32); Calcium, Blood 8.1 mg/dL (8.5-10.1); Chloride, Blood 110 mmol/L (98-108); Glomerular Filtration Rate 36 (60-); Glucose, Blood 177 mg/dL (70-99); Phosphorus, Blood 2.3 mg/dL (2.5-4.9); Potassium, Blood 3.5 mmol/L (3.5-5.5); Sodium, Blood 142 mmol/L (136-145)
[2022-10-07 15:26] VITALS: BP 113/59
--- NOTE | 2022-10-07 16:47 | NUR ---
SHIFT SUMMARY PT UP IN CHAIR FOR MEALS TODAY. WORKED WITH PHYSICAL THERAPY THIS MORNING AND AMBULATED TO BATHROOM WELL. ANTONIO HELD THIS AM FOR SOFT BP. DR. GARCIA AWARE. PT MEDICATED FOR HIP/BACK/BUTTOCK PAIN FROM A PREVIOUS FALL AT HOME ONCE THIS SHIFT. NO OTHER ACUTE CHANGES IN ASSESSMENT AT THIS TIME. PT PLEASANT & COOPERATIVE. CURRENTLY REPOSITIONED IN BED. VS REVIEWED. PT DENIES OTHER NEEDS AT THIS TIME.
[2022-10-07 19:24] VITALS: BP 144/53
[2022-10-08 02:28] VITALS: BP 176/40
[2022-10-08 04:50] LABS: Hematocrit 22.2 % (37.0-53.0); Hemoglobin 7.2 g/dL (13.5-17.5)
--- NOTE | 2022-10-08 04:51 | NUR ---
SHIFT SUMMARY PATIENT ALERT, FORGETFUL AT TIMES, OCCATIONAL MILD CONFUSION, EASILY REORIENTED. C/O RIGHT HIP PAIN R/T PRIOR FALL AT HOME, PRN TYLENOL NOT VERY EFFECTIVE, MD NOTIFIED, RECEIVED NEW ORDER FOR PRN OXYCODONE 5MG, TOLERATED WELL, WAS ABLE TO GET BETTER SLEEP. NOTED HX OF AFIB, AT TIME OF ASSESSMENT, SR WITH AUDIBLE MURMER (MECH AORTIC VALVE). PG TO RIGHT AND LEFT UPPER ARMS, LEFT IS INFUSING HEPARIN DRIP AT 18ML/HR, RIGHT IS SL, FLUSHES WELL. APPEARES TO BE SLEEPING SOUNDLY AT THIS TIME IN NO ACUTE DISTRESS, CALL LIGHT IN REACH, BED LOW.
[2022-10-08 05:18] LABS: Bun/Creatinine Ratio 17.1 (12.0-20.0); Calcium, Blood 7.9 mg/dL (8.5-10.1); Creatinine, Blood 1.64 mg/dL (0.60-1.20); Potassium, Blood 5.1 mmol/L (3.5-5.5)
[2022-10-08 06:00] VITALS: BP 104/40
[2022-10-08 08:03] VITALS: BP 123/41
[2022-10-08 13:11] LABS: BASOPHILS ABSOLUTE AUTO 0.05 K/mm3 (0.00-0.23); BASOPHILS PERCENT AUTO 1 % (0-2); EOSINOPHILS ABSOLUTE AUTO 0.21 K/mm3 (0.00-0.68); EOSINOPHILS PERCENT AUTO 3 % (0-6); Hematocrit 25.5 % (37.0-53.0); Hemoglobin 8.2 g/dL (13.5-17.5); IMMATURE GRAN ABSOLUTE AUTO 0.04 K/mm3 (0.00-0.10); IMMATURE GRAN PERCENT AUTO 1 % (0-1); LYMPHOCYTES PERCENT AUTO 22 % (21-46); MONOCYTES ABSOLUTE AUTO 0.61 K/mm3 (0.16-1.47); MONOCYTES PERCENT AUTO 8 % (4-13); Mean Corpuscular HGB 32.7 pg (26.0-34.0); Mean Corpuscular HGB Conc 32.2 g/dL (31.5-36.5); Mean Corpuscular Volume 102 fL (80-100); NEUTROPHILS ABSOLUTE AUTO 4.77 K/mm3 (1.96-9.15); NEUTROPHILS PERCENT AUTO 66 % (41-73); Platelet Count 87 K/mm3 (150-400); RDW Coefficient Variation 15.7 % (11.7-14.2); RDW Standard Deviation 57.1 fL (35.1-46.3); Red Blood Cell Count 2.51 M/mm3 (4.30-5.90); White Blood Cell Count 7.28 K/mm3 (4.00-11.30)
[2022-10-08 13:18] LABS: Mean Platelet Volume 13.4 fL (9.1-12.4)
[2022-10-08 14:51] VITALS: BP 131/52
--- NOTE | 2022-10-08 19:39 | NUR ---
SHIFT SUMMARY: PT A/O X 3, FORGETFUL, STANDBY ASSIST WITH FWW AND GB. PT PAIN TO R HIP MANAGED WITH CURRENT REGIMEN. PT REPORTED THIS AM NUMBNESS TO L HAND FINGERS WITH LOSS IF STAFF FORESTER STRENGTH. CT ORDERED. PT STATED SYMPTOMS RESOVED AROUND NOON TIME. PT HAD NO OTHER COMPLAINTS. NO BM TODAY, NO S/S OF BLEEDING. HGB 8.2 TODAY.
[2022-10-08 19:45] VITALS: BP 110/37
[2022-10-09 02:58] VITALS: BP 122/57
[2022-10-09 05:27] LABS: BASOPHILS ABSOLUTE AUTO 0.06 K/mm3 (0.00-0.23); BASOPHILS PERCENT AUTO 1 % (0-2); EOSINOPHILS ABSOLUTE AUTO 0.28 K/mm3 (0.00-0.68); EOSINOPHILS PERCENT AUTO 4 % (0-6); Hematocrit 21.7 % (37.0-53.0); IMMATURE GRAN ABSOLUTE AUTO 0.07 K/mm3 (0.00-0.10); IMMATURE GRAN PERCENT AUTO 1 % (0-1); LYMPHOCYTES ABSOLUTE AUTO 1.67 K/mm3 (0.84-5.20); LYMPHOCYTES PERCENT AUTO 22 % (21-46); MONOCYTES ABSOLUTE AUTO 0.74 K/mm3 (0.16-1.47); MONOCYTES PERCENT AUTO 10 % (4-13); Mean Corpuscular HGB 32.7 pg (26.0-34.0); Mean Corpuscular HGB Conc 32.3 g/dL (31.5-36.5); Mean Corpuscular Volume 101 fL (80-100); NEUTROPHILS ABSOLUTE AUTO 4.81 K/mm3 (1.96-9.15); NEUTROPHILS PERCENT AUTO 63 % (41-73); NRBC ABSOLUTE 0.02 K/mm3 (0.00-0.02); NRBC Auto 0.3 /100 WBC (0.0-0.2); Platelet Count 68 K/mm3 (150-400); RDW Coefficient Variation 15.9 % (11.7-14.2); RDW Standard Deviation 58.1 fL (35.1-46.3); Red Blood Cell Count 2.14 M/mm3 (4.30-5.90); White Blood Cell Count 7.63 K/mm3 (4.00-11.30)
[2022-10-09 05:32] LABS: Mean Platelet Volume 13.5 fL (9.1-12.4)
[2022-10-09 05:35] LABS: Albumin, Blood 2.2 g/dL (3.4-5.0); Anion Gap 7 mmol/L (6-16); Blood Urea Nitrogen 29 mg/dL (8-24); Bun/Creatinine Ratio 16.4 (12.0-20.0); CO2, Blood 25 mmol/L (21-32); Calcium, Blood 7.8 mg/dL (8.5-10.1); Chloride, Blood 112 mmol/L (98-108); Creatinine, Blood 1.77 mg/dL (0.60-1.20); Glomerular Filtration Rate 37 (60-); Glucose, Blood 176 mg/dL (70-99); Magnesium, Blood 1.6 mg/dL (1.6-2.4); Phosphorus, Blood 2.3 mg/dL (2.5-4.9); Potassium, Blood 3.5 mmol/L (3.5-5.5); Sodium, Blood 144 mmol/L (136-145)
--- NOTE | 2022-10-09 05:38 | NUR ---
UNEVENTFUL NIGHT. BP MEDS HELD DUE TO HYPOTENSION. HEPARIN GIVEN ORDERED. PER ORDER, HEPARIN SHOULD BE STOPPED 6 HOURS PRIOR TO EGD/COLONOSCOPY, PENDING PROCEDURE TIME UNKNOWN BUT PT NPO SINCE MIDNIGHT. RAY POWERGLIDE DRAWS BLOOD EASILY. AOX3, PLEASANT, CALLS APPROPRIATELY.
[2022-10-09 07:26] VITALS: BP 148/50
[2022-10-09 10:11] LABS: Hematocrit 23.3 % (37.0-53.0); Hemoglobin 7.5 g/dL (13.5-17.5)
--- NOTE | 2022-10-09 10:28 | NUR ---
Confirmed with Saranya in endo, EGD for 1600 today. CLD til lunch then NPO. Heparin off at 1010 as ordered to turn off 6 hours prior to EGD. Margaret in pharmacy informed.
[2022-10-09 12:07] LABS: Base Excess Venous -2.3 mmol/L; Bicarbonate Venous 22.6 mmol/L (24.0-30.0); PCO2 Venous 43.9 mmHg (38-42); pH Blood Venous 7.34 (7.34-7.37)
--- NOTE | 2022-10-09 12:08 | NUR ---
Call received from telecom network manager Alonso with arrhythmia noted. Rn to room. Pt unresponsive sitting on toilet after BM. NAIL CUTTER/Code blue called. Unable to palpate pulse. contract technical writer reported 4.1 second pause to 2nd degree AVB to 1st degress AVB. Pt lifted to floor, pt awaken and responsive X3. BP 101/67 HR 71, 02 sat 99% 2L. 12 lead ekg done. Orders to transfer to PCU 2. Report given to Debbi. Pt transported to PCU 2. Unable to leave daughter nate.
[2022-10-09 12:11] VITALS: BP 82/48
[2022-10-09 12:48] LABS: BASOPHILS PERCENT AUTO 1 % (0-2); EOSINOPHILS ABSOLUTE AUTO 0.25 K/mm3 (0.00-0.68); EOSINOPHILS PERCENT AUTO 3 % (0-6); Hematocrit 23.8 % (37.0-53.0); Hemoglobin 7.6 g/dL (13.5-17.5); IMMATURE GRAN PERCENT AUTO 1 % (0-1); LYMPHOCYTES ABSOLUTE AUTO 1.61 K/mm3 (0.84-5.20); LYMPHOCYTES PERCENT AUTO 18 % (21-46); MONOCYTES ABSOLUTE AUTO 0.69 K/mm3 (0.16-1.47); MONOCYTES PERCENT AUTO 8 % (4-13); Mean Corpuscular HGB 32.9 pg (26.0-34.0); Mean Corpuscular HGB Conc 31.9 g/dL (31.5-36.5); Mean Corpuscular Volume 103 fL (80-100); NEUTROPHILS ABSOLUTE AUTO 6.19 K/mm3 (1.96-9.15); NEUTROPHILS PERCENT AUTO 69 % (41-73); Platelet Count 88 K/mm3 (150-400); RDW Coefficient Variation 16.2 % (11.7-14.2); RDW Standard Deviation 59.6 fL (35.1-46.3); Red Blood Cell Count 2.31 M/mm3 (4.30-5.90); White Blood Cell Count 8.94 K/mm3 (4.00-11.30)
[2022-10-09 12:50] LABS: Magnesium, Blood 1.6 mg/dL (1.6-2.4)
[2022-10-09 12:53] LABS: Mean Platelet Volume 13.7 fL (9.1-12.4)
[2022-10-09 12:57] LABS: Albumin, Blood 2.2 g/dL (3.4-5.0); Albumin/Globulin Ratio 0.8 (0.8-1.8); Bilirubin, Total 0.7 mg/dL (0.1-1.0); Bun/Creatinine Ratio 15.9 (12.0-20.0); Calcium, Blood 7.9 mg/dL (8.5-10.1); Creatinine, Blood 1.95 mg/dL (0.60-1.20); Globulin, Blood 2.7 g/dL (2.2-4.0); Phosphorus, Blood 2.8 mg/dL (2.5-4.9); Thyroid Stimulating Hormone 5.42 uIU/mL (0.360-4.800); Total Protein, Blood 4.9 g/dL (6.4-8.2)
[2022-10-09 13:41] VITALS: BP 111/57
[2022-10-09 14:07] LABS: Free Thyroxine 1.12 ng/dL (0.70-1.60)
[2022-10-09 14:09] LABS: Triiodothyronine, Free <0.50 pg/mL (2.18-3.98)
[2022-10-09 15:29] VITALS: BP 92/61
--- NOTE | 2022-10-09 17:40 | NUR ---
SHIFT SUMMARY; ASSUMED CARE FROM MEDICAL FLOOR AFTER RAPID RESPONSE. A/A/0X4. PLESANT AND COOPERATIVE WITH CARE. SOFT BP ON ARRIVAL, FLUID BOLUS STARTED PER ORDERS. HEPARIN RESTARTED PER PHARMACY MANAGING, PER DR. CASTILLO. REPOSTIONS SELF IN BED, USES URINAL NEEDED. US OF RIGHT HIP BRUISED AREA FROM PREVIOUS FALL. TODAY'S EGD CANCELED BY PROVIDER, CLEAR DIET RESUMED, WILL CONTINUE TO MONITOR AND TREAT UNTIL CHANGE OF SHIFT.
[2022-10-09 21:05] VITALS: BP 144/48
[2022-10-10 00:39] VITALS: BP 128/80
[2022-10-10 04:10] VITALS: BP 144/72
[2022-10-10 07:38] VITALS: BP 130/64
[2022-10-10 08:23] LABS: Hematocrit 23.3 % (37.0-53.0); Hemoglobin 7.6 g/dL (13.5-17.5); Mean Corpuscular HGB 32.9 pg (26.0-34.0); Mean Corpuscular HGB Conc 32.6 g/dL (31.5-36.5); Mean Corpuscular Volume 101 fL (80-100); Platelet Count 88 K/mm3 (150-400); RDW Coefficient Variation 16.3 % (11.7-14.2); RDW Standard Deviation 58.9 fL (35.1-46.3); Red Blood Cell Count 2.31 M/mm3 (4.30-5.90); White Blood Cell Count 11.34 K/mm3 (4.00-11.30)
[2022-10-10 08:25] LABS: Mean Platelet Volume 14.2 fL (9.1-12.4)
[2022-10-10 08:28] LABS: Bun/Creatinine Ratio 16.7 (12.0-20.0); Calcium, Blood 8.1 mg/dL (8.5-10.1); Creatinine, Blood 2.03 mg/dL (0.60-1.20); Potassium, Blood 3.2 mmol/L (3.5-5.5)
[2022-10-10 11:25] VITALS: BP 134/42
[2022-10-10 16:18] VITALS: BP 149/59
--- NOTE | 2022-10-10 17:21 | NUR ---
SHIFT SUMMARY; ASSUMED CARE AT 0700, SHORTLY AFTER ASSUMING CARE PT UP ON COMMODE AND BECOMES PALE. CALLED TO ROOM BY STANDARD MACHINE STITCHER. TELE MONITOR SHOWS HEART DROP TO 40'S, PT'S HEAD SLUMMPED OVER AND NOT RESPONDING TO VERBAL STIMULI. EPISODE LASTED APPROX 1 MINUTE THEN GRADUALLY BECOMES MORE RESPONSIVE. ASSISTED TO BED BY MULTIPLE STAFF MEMBERS, FULL SET VITALS TAKEN. DOCTOR TO ROOM, CARDIOLOGY CONSULT ORDERED. A/A/OX4 ON DR. BAUER ARRIVAL. SON AT BEDSIDE, PLANS FOR PACEMAKER DISCUSSED. CONSENT OBTAINED. NPO AFTER MIDNIGHT FOR PROCEDURE TOMORROW. EPI AND ATROPINE AT BEDSIDE PER TRAINING DEVELOPER. NO FURTHER EPISODES DURING SHIFT, MAINTAINED BEDREST. REPOSITIONS SELF, USES URINAL WITH ASSISTANCE. INSULIN COVERAGE PER EMAR. DIET ADVANCED TO FULL LIQUID, TOLERATING WELL. NO GI BLEEDING DURING SHIFT. HEPARIN INFUSING AT 10UNIT/KG PER EMAR. WILL CONTINUE TO MONITOR AND TREAT UNTIL CHANGE OF SHIFT.
[2022-10-10 20:24] VITALS: BP 106/31
[2022-10-11] VITALS (18 sets, daily range): BP systolic 71–158; BP diastolic 38–85
[2022-10-11 04:24] LABS: Hematocrit 20.1 % (37.0-53.0); Hemoglobin 6.5 g/dL (13.5-17.5); Mean Corpuscular HGB Conc 32.3 g/dL (31.5-36.5); Mean Corpuscular Volume 102 fL (80-100); Mean Platelet Volume 12.9 fL (9.1-12.4); Platelet Count 72 K/mm3 (150-400); RDW Coefficient Variation 16.7 % (11.7-14.2); RDW Standard Deviation 61.2 fL (35.1-46.3); Red Blood Cell Count 1.97 M/mm3 (4.30-5.90); White Blood Cell Count 8.23 K/mm3 (4.00-11.30)
[2022-10-11 05:07] LABS: Albumin, Blood 2.1 g/dL (3.4-5.0); Albumin/Globulin Ratio 0.8 (0.8-1.8); Bilirubin, Total 0.6 mg/dL (0.1-1.0); Bun/Creatinine Ratio 18.1 (12.0-20.0); Calcium, Blood 7.8 mg/dL (8.5-10.1); Creatinine, Blood 1.99 mg/dL (0.60-1.20); Globulin, Blood 2.5 g/dL (2.2-4.0); Potassium, Blood 3.5 mmol/L (3.5-5.5); Total Protein, Blood 4.6 g/dL (6.4-8.2)
--- NOTE | 2022-10-11 05:10 | NUR ---
HGB 6.5 HGB 6.5 THIS AM, NO OBVIOUS SIGNS OF BLEEDING THIS SHIFT. DR. ZENIA STVOER CALLED AND NOITIFIED OF HGB AND PAST MEDICAL HISTORY, AND THAT PT WAS STILL ON HEPARIN GTT WITH ORDERS TO STOP AT 0600 IN PREP FOR PACEMAKER PLACEMENT TODAY. RECEIVED ORDER TO STOP HEPARIN NOW AND INFUSE 1 UNIT OF PRBC'S, REPEAT H&H 30 MINS POST INFUSION.
--- NOTE | 2022-10-11 05:20 | NUR ---
HEPARIN GTT HEPARIN GTT STOPPED EARLY AT 0520 PER ORDERS FOR LOW H&H.
--- NOTE | 2022-10-11 06:08 | NUR ---
SHIFT SUMMARY PT HAS RESTED MOST OF THE NIGHT. PT HAS NOT REPORTED CHEST PAIN THIS SHIFT, NO ACUTE CHANGES ON TELE AND VITALS STABLE. PT HAD NOT VOIDED MOST OF THE SHIFT, STATING HE FELT THE URGE BUT COULD NOT GO. BLADDER SCAN REVEALED 336, PT VOIDED 200 MLS SHORTLY AFTER SCAN. PT HGB 6.5 THIS AM, DR. STOVER NOTIFIED AND 1 UNIT OF PRBCS ORDERED. CROSS AND TYPE STILL PENDING IN LAB AT THIS TIME. DR. BAUER IN TO SEE PT THIS AM, NOTIFIED HIM OF HGB 06 6.5, HE AGREES WITH DR. STOVER PLAN TO TRANSFUSE 1 UNIT OF PRBC'S. NO ACUTE EVENTS ON TELE OVERNIGHT PER HOME VISITOR HOME BASE HEAD START. PT HAS BEEN NSR. PT MEDICATED X1 FOR SHOULDER PAIN, DENIES CHEST PAIN. HEPARIN GTT STOPPED THIS AM AT [address] STOVER ORDERS FOR LOW HGB. PT HAS BEEN NPO SINCE MIDNIGHT FOR PACEMAKER PLACEMENT TODAY. BED IN LOWEST POSITION, CALL LIGHT WITHIN REACH.
--- NOTE | 2022-10-11 08:01 | NUR ---
UPDATE RESIDENT AT BEDSIDE DURING LOW BLOOD PRESSURE READINGS. PT REPORTED CP LAST NOC 10/10 BUT STATED PAIN FELT "MUSCLE RELATED." EKG DONE. NOTIFIED. BLOOD TRANSFUSION IN PROCESS. TO [facility] PT NOW.
--- NOTE | 2022-10-11 08:45 | NUR ---
UPDATE MD AT BEDSIDE. AWARE OF LOW BP. ORDERS FOR MIDODRINE 5 MG BID. WILL CONT TO MONITOR.
--- NOTE | 2022-10-11 12:56 | NUR ---
UPDATE PLAN FOR PACER TO BE PLACED ON 10/12. NO LONGER NPO. H&H PENDING AT THIS TIME. PT COUGHING UP SILVER DOLLAR SIZED BLOODY MUCOUS 4 TIMES. MD NOTIFIED. BLADDER SCAN SHOWS 80ML OF URINE IN BLADDER. PT PAINFUL ON R HIP AND L SHOULDER. MD NOTIFIED AND AWARE. MD TO COME TO BEDSIDE TO EVAL PT.
[2022-10-11 13:53] LABS: Hematocrit 26.9 % (37.0-53.0); Hemoglobin 8.7 g/dL (13.5-17.5)
--- NOTE | 2022-10-11 18:43 | NUR ---
SHIFT SUMMARY PT ALERT AND ORIENTED X 4. FORGETFUL AT TIMES. NOT PULLING AT LINES OR ATTEMPTING TO GET OUT OF BED. FAMILY STATES PT HAS BEEN FORGETFUL OCCASIONALY AND THIS IS NOT A NEW EVENT. SEE NOTES FOR UPDATES T/O SHIFT. NOTIFIED MID SHIFT PT NO LONGER GOING TO HC FOR PACER PLACEMENT. ORDERS TO RESUME HEPARIN. PT TO CT D/T INCREASE IN L LEG PAIN. MD NOTIFIED OF RESULTS. PT HAS SMALL AMOUNT OF HEMOPTYSIS. MD AWARE. ORDERS TO CONT HEPARIN, SEE EMAR FOR CURRENT DOSE. PLAN FOR HEPARIN TO BE TURNED OFF AT MIDNIGHT. PT NPO AT MIDNIGHT FOR PACER TOMORROW. PLAN FOR PT TO HAVE EGD AFTER PACER PLACEMENT TOMORROW AFTERNOON. PT BEDREST T/O SHIFT D/T SYNCOPAL EPISODES. PT ABLE TO ASSIST IN TURNS IN BED. REPORTS PAIN AT R HIP. MEDICATED. REPORTS PAIN IN L SHOULDER. MD AWARE. PT REPORTED CP AT BEGINNING OF SHIFT. MD AWARE, EKG DONE. PT NO LONGER HYPOTENSIVE POST BLOOD TRANSFUSION. HR STABLE. OXYGEN SATURATION MAINTAINED ABOVE 92% ON RA. PT USES URINAL IN BED. CALL LIGHT WITHIN REACH. WILL CONT TO MONITOR UNTIL REPORT GIVEN TO NIGHTSHIFT RN.
[2022-10-12] VITALS (24 sets, daily range): BP systolic 90–173; BP diastolic 47–101
[2022-10-12 04:07] LABS: BASOPHILS ABSOLUTE AUTO 0.04 K/mm3 (0.00-0.23); BASOPHILS PERCENT AUTO 1 % (0-2); EOSINOPHILS ABSOLUTE AUTO 0.23 K/mm3 (0.00-0.68); EOSINOPHILS PERCENT AUTO 3 % (0-6); Hematocrit 24.4 % (37.0-53.0); IMMATURE GRAN ABSOLUTE AUTO 0.07 K/mm3 (0.00-0.10); IMMATURE GRAN PERCENT AUTO 1 % (0-1); LYMPHOCYTES ABSOLUTE AUTO 1.23 K/mm3 (0.84-5.20); LYMPHOCYTES PERCENT AUTO 15 % (21-46); MONOCYTES ABSOLUTE AUTO 0.82 K/mm3 (0.16-1.47); MONOCYTES PERCENT AUTO 10 % (4-13); Mean Corpuscular HGB 32.8 pg (26.0-34.0); Mean Corpuscular HGB Conc 32.8 g/dL (31.5-36.5); Mean Corpuscular Volume 100 fL (80-100); NEUTROPHILS ABSOLUTE AUTO 5.62 K/mm3 (1.96-9.15); NEUTROPHILS PERCENT AUTO 70 % (41-73); Platelet Count 78 K/mm3 (150-400); RDW Coefficient Variation 18.7 % (11.7-14.2); RDW Standard Deviation 67.7 fL (35.1-46.3); Red Blood Cell Count 2.44 M/mm3 (4.30-5.90); White Blood Cell Count 8.01 K/mm3 (4.00-11.30)
[2022-10-12 04:18] LABS: Mean Platelet Volume 13.8 fL (9.1-12.4)
[2022-10-12 05:01] LABS: Bun/Creatinine Ratio 17.3 (12.0-20.0); Calcium, Blood 8.1 mg/dL (8.5-10.1); Creatinine, Blood 1.73 mg/dL (0.60-1.20); Potassium, Blood 3.9 mmol/L (3.5-5.5)
--- NOTE | 2022-10-12 05:15 | NUR ---
SHIFT SUMMARY NO ACUTE CHANGES THIS SHIFT. VSS. AXO THROUGHOUT SHIFT. REMAINS IN SR, FHB, BBB. BP STABLE. PT WITHOUT BLOODY STOOL, HEMOPTYSIS, OR OTHER OUTWARD SIGNS OF BLEEDING. HEPARIN GTT OFF AT 0000 PER ORDERS. R HIP HEMATOMA UNCHANGED IN PERIMITER.HGB STABLE AT THIS TIME. POWERGLIDE PATENT, DOES NOT DRAW BLOOD. REMAINS IN BR. NPO SINCE 0000. BED ALARM ON.
--- NOTE | 2022-10-12 08:48 | NUR ---
UPDATE PT TO HC FOR PACER PLACEMENT
--- NOTE | 2022-10-12 10:51 | NUR ---
UPDATE PT BACK FROM HC. PRESSURE DRESSING IN PLACE. PLAN FOR CARDIOLOGY TO REMOVE. VSS. SITE WNL.
--- NOTE | 2022-10-12 13:44 | NUR ---
UPDATE PLANNING FOR PT TO GO TO DAY SURGERY FOR EGD AT 1445. CONSENT TO BE SIGNED AT DAY SURGERY.
--- NOTE | 2022-10-12 14:31 | NUR ---
UPDATE PT TO DAYSURGERY AT THIS TIME
--- NOTE | 2022-10-12 14:35 | NUR ---
INTO [facility] VIA [employer]. PREP FOR EGD WITH MAC. PT REMAINS "GROGGY" FROM PACER PLACEMENT EARLIER TODAY. PT ABLE TO ANSWER QUESTIONS, BUT IS A POOR HISTORIAN. HISTORY, ALLERGIES REVIEWED. NPO STATUS CONFIRMED. PRESSURE DRESSING TO LEFT CHEST C/D/I-NO NOTED BLEEDING OR HEMATOMA.
--- NOTE | 2022-10-12 14:59 | NUR ---
10/12/22 1459 Yulia Jessica History, Chart, Medications and Allergies reviewed before start of procedure. 3-LEAD EKG REVIEWED WITH PHYSICIAN PRIOR TO START OF PROCEDURE. MONITOR INTACT WITH CONTINUOUS PULSE OXIMETRY, CONTINUOUS END TITAL CO2, AND INTERMITTENT BLOOD PRESSURE. O2 VIA 10L POM INTACT THROUGHOUT SEDATION/PROCEDURE. SEE ANESTHESIA NOTES FOR DETAILS.
--- NOTE | 2022-10-12 18:10 | NUR ---
SHIFT SUMMARY PT ALERT AND ORIENTED X4. FORGETFUL AT TIMES. ABLE TO RE-DIRECT PT NEEDED. BED ALARM IN PLACE. PT TO HC THIS AM. L CHEST WALL PACER WOUND WNL. PRESSURE DRESSING IN PLACE. PER CARDIOLOGY NO ANTICOAG FOR 24 HRS. NO REPORTS OF CP OR PRESSURE. PT TO DAY SURGERY THIS AFTERNOON FOR EGD. PT MEET WELL. PT'S SON UPDATED ONCE BACK IN ROOM. VSS ONCE BACK TO UNIT. HR STABLE. BP STABLE. OXYGEN SATURATION MAINTAINED ABOVE 92% ON RA. PT SLEEPING T/O SHIFT. PT USES URINAL IN BED. PT TURNED Q 2 HRS. USES CALL LIGHT NEEDED. WILL CONT TO MONITOR UNTIL REPORT GIVEN TO NIGHTSHIFT RN.
--- NOTE | 2022-10-12 18:29 | NUR ---
UPDATE PT OFFERED DINNER. DECLINING AT THIS TIME.
[2022-10-13 03:12] VITALS: BP 146/63
[2022-10-13 03:35] LABS: Hemoglobin 8.4 g/dL (13.5-17.5); Mean Corpuscular HGB 32.6 pg (26.0-34.0); Mean Corpuscular HGB Conc 32.3 g/dL (31.5-36.5); Mean Corpuscular Volume 101 fL (80-100); Platelet Count 82 K/mm3 (150-400); RDW Coefficient Variation 18.5 % (11.7-14.2); Red Blood Cell Count 2.58 M/mm3 (4.30-5.90); White Blood Cell Count 11.75 K/mm3 (4.00-11.30)
[2022-10-13 03:56] LABS: Bun/Creatinine Ratio 18.4 (12.0-20.0); Calcium, Blood 8.2 mg/dL (8.5-10.1); Creatinine, Blood 1.63 mg/dL (0.60-1.20)
[2022-10-13 04:12] LABS: Mean Platelet Volume 13.3 fL (9.1-12.4)
--- NOTE | 2022-10-13 05:46 | NUR ---
SHIFT SUMMARY THIS RN ASSUMED CARE OF PATIENT AT 1900. PATIENT CONTINUES TO BE IN ST WITH BBB HR 100-110'S. BP STABLE. SPO2 >92% ON RA. PT DENIES CHEST PAIN/PRESSURE. PRESSURE DRESSING REMAINS IN PLACE ON LEFT CHEST WALL POST PACEMAKER. NO SIGNS OF HEMATOMA/DISCOLORATION/BLEEDING NOTED. PPP. SLING IN PLACE. PT ALERT AND ORIENTED X3-4. CONFUSED/FORGETFUL AT TIMES. REMINDING PT OF RESTRICTIONS OF LEFT ARM MOVEMENTS. REPOSITIONING Q2HRS WITH PILLOWS. BED IN LOWEST POSITION AND CALL LIGHT WITHIN REACH. THIS RN WILL CONTINUE TO MONITOR UNTIL SHIFT CHANGE AT 0700.
[2022-10-13 07:33] VITALS: BP 133/81
[2022-10-13 09:01] LABS: International Normalized Ratio 1.21; Prothrombin Time Results 12.6 Sec (9.7-11.5)
--- NOTE | 2022-10-13 09:38 | NUR ---
FIRE ASEESMENT/ EDUCATION PT ASSESSED FOR SMOKING OR ANY COMBUSTABLES, PT IS A NON-SMOKER AND IS ON RA. NO OTHER COMBASTABLES REPORTED. PT EDUCATED ON BEING A SMOKE FREE FACILITY AND FIRE SAFETY.
--- NOTE | 2022-10-13 10:21 | NUR ---
PATIENT AND FAMILY EDUCATED RE: IGNITION SOURCES AND RISK OF INJURY WHILE OXYGEN IS IN USE. PATIENT AND FAMILY VERBALIZED UNDERSTANDING AND HAD NO FURTHER QUESTIONS. PATIENT DENIES SMOKING.
[2022-10-13 12:18] VITALS: BP 132/72
[2022-10-13 15:40] VITALS: BP 129/76
--- NOTE | 2022-10-13 19:32 | NUR ---
SHIFT SUMMARY PT A/OX3-4 AFTER WAKING UP, TOOK A FEW MINUTES TO GATHER HIS THOUGHTS AFTER WAKING UP. PT HAD SOME CONFUSION AND NEEDED REMINDERS NOT TO USE HIS LEFT ARM DUE TO PACEMAKER SITE. PT EASILY REDIRECTABLE. PT BECAME MORE CONFUSED THIS AFTERNOON, AROUND 1645, AFTER AGAIN WAKING UP AND SPEAKING WITH DOCTORS. DOCTORS CONCERNED AND ASKED THIS RN TO CHECK ON PT. PT WAS ABLE TO GIVE NAME AND HAD DIFFICULTY WITH HIS , YEAR, AND LOCATION. DOCTOR NOTIFIED, Q2 NEUROCHECKS ORDERED. OTHER VSS THROUGHOUT SHIFT WITH O2 SATS IN THE 90'S ON RA. NO REPORT OF CHEST PAIN/PRESSURE. NO REPORT OF SOB. PT HAD LITTLE OUTPUT DURING SHIFT. PT WORKED WITH PT/OT, SEE THERAPIST NOTES. PT WAS UP TO CHAIR TODAY. PT CALLED APPROPIATE. HEP GTT STARTED THIS EVENING PER ORDERS. PT ALSO ON COUMADIN PER ORDERS, NOC RN AWARE.
[2022-10-13 20:00] VITALS: BP 139/59
--- NOTE | 2022-10-13 21:07 | NUR ---
ASSUMED CARE PT IS A&O X3; PT COMMUNICATES APPROPRIATELY, BUT INTERMITTENTLY LOSES FOCUS. FOLLOWS COMMANDS APPROPRIATELY/COOPERATIVE W/ CARE/PLEASANT. SPO2 >92% ON RA; MAP >65; NSR. LEFT ARM SECURED IN SLING AND PT ABLE TO ARTICULATE IMPORTANCE OF KEEPING LEFT ARM IMMOBILE. PT DENIES CP, SOB, OR NAUSEA.
[2022-10-13 23:44] VITALS: BP 130/53
[2022-10-14 04:14] VITALS: BP 115/47
--- NOTE | 2022-10-14 04:42 | NUR ---
SHIFT SUMMARY PT SLEPT WELL T/O NIGHT. LEFT ARM REMAINS IN SLING AND PT CONTINUES TO FOLLOW COMMANDS APPROPRIATELY. DRESSING OVER PACEMAKER SITE IS ABSENT OF ANY OOZING/DRAINAGE. SPO2 >92% ON RA; MAP >65. PT CONTINUES TO DENY CP, SOB, OR NAUSEA. NO ACUTE EVENTS OVERNIGHT.
[2022-10-14 06:03] LABS: BASOPHILS ABSOLUTE AUTO 0.03 K/mm3 (0.00-0.23); BASOPHILS PERCENT AUTO 0 % (0-2); EOSINOPHILS ABSOLUTE AUTO 0.34 K/mm3 (0.00-0.68); EOSINOPHILS PERCENT AUTO 4 % (0-6); Hematocrit 23.3 % (37.0-53.0); Hemoglobin 7.6 g/dL (13.5-17.5); IMMATURE GRAN ABSOLUTE AUTO 0.04 K/mm3 (0.00-0.10); IMMATURE GRAN PERCENT AUTO 1 % (0-1); LYMPHOCYTES ABSOLUTE AUTO 1.28 K/mm3 (0.84-5.20); LYMPHOCYTES PERCENT AUTO 16 % (21-46); MONOCYTES ABSOLUTE AUTO 0.78 K/mm3 (0.16-1.47); MONOCYTES PERCENT AUTO 10 % (4-13); Mean Corpuscular HGB 33.5 pg (26.0-34.0); Mean Corpuscular HGB Conc 32.6 g/dL (31.5-36.5); Mean Corpuscular Volume 103 fL (80-100); NEUTROPHILS ABSOLUTE AUTO 5.58 K/mm3 (1.96-9.15); NEUTROPHILS PERCENT AUTO 69 % (41-73); Platelet Count 81 K/mm3 (150-400); RDW Coefficient Variation 18.6 % (11.7-14.2); Red Blood Cell Count 2.27 M/mm3 (4.30-5.90); White Blood Cell Count 8.05 K/mm3 (4.00-11.30)
[2022-10-14 06:05] LABS: Mean Platelet Volume 13.6 fL (9.1-12.4)
[2022-10-14 06:21] LABS: Albumin, Blood 1.9 g/dL (3.4-5.0); Albumin/Globulin Ratio 0.7 (0.8-1.8); Bilirubin, Total 0.6 mg/dL (0.1-1.0); Calcium, Blood 8.1 mg/dL (8.5-10.1); Creatinine, Blood 1.84 mg/dL (0.60-1.20); Globulin, Blood 2.6 g/dL (2.2-4.0); Potassium, Blood 3.7 mmol/L (3.5-5.5); Total Protein, Blood 4.5 g/dL (6.4-8.2)
[2022-10-14 06:43] LABS: Anti-Xa UFH, PHA Monitoring 0.38 IU/mL; International Normalized Ratio 1.27; Prothrombin Time Results 13.2 Sec (9.7-11.5)
[2022-10-14 07:15] VITALS: BP 145/67
--- NOTE | 2022-10-14 07:26 | NUR ---
AM NOTE Patient alert, oriented to person, place and event, when asked for date pt looks at board and states 10/14 but unsure of date, but later when asked year specifically pt states the end of 2022. Up with 1 person assist with walker and gaitbelt. Pt denies pain, chest pain/pressure, sob, nausea, dizziness and numb/tingling. Tele sinus with bbb and occasional paced beat, bp 145/67 this am. Spo2 >94% on ra, breathing even and unlabored. Abd soft, nontender with +bt x4 quad. Pacemaker site c/d/i. Heparin gtt infusing per orders. Other VSS. Will continue to monitor.
[2022-10-14 11:40] VITALS: BP 130/59
[2022-10-14 15:26] VITALS: BP 123/42
[2022-10-14 16:57] LABS: BASOPHILS ABSOLUTE AUTO 0.05 K/mm3 (0.00-0.23); BASOPHILS PERCENT AUTO 1 % (0-2); EOSINOPHILS ABSOLUTE AUTO 0.48 K/mm3 (0.00-0.68); EOSINOPHILS PERCENT AUTO 5 % (0-6); Hematocrit 25.6 % (37.0-53.0); Hemoglobin 8.1 g/dL (13.5-17.5); IMMATURE GRAN ABSOLUTE AUTO 0.04 K/mm3 (0.00-0.10); IMMATURE GRAN PERCENT AUTO 0 % (0-1); LYMPHOCYTES ABSOLUTE AUTO 1.29 K/mm3 (0.84-5.20); LYMPHOCYTES PERCENT AUTO 14 % (21-46); MONOCYTES ABSOLUTE AUTO 0.85 K/mm3 (0.16-1.47); MONOCYTES PERCENT AUTO 9 % (4-13); Mean Corpuscular HGB 32.9 pg (26.0-34.0); Mean Corpuscular HGB Conc 31.6 g/dL (31.5-36.5); Mean Corpuscular Volume 104 fL (80-100); NEUTROPHILS ABSOLUTE AUTO 6.38 K/mm3 (1.96-9.15); NEUTROPHILS PERCENT AUTO 70 % (41-73); Platelet Count 85 K/mm3 (150-400); RDW Coefficient Variation 18.6 % (11.7-14.2); RDW Standard Deviation 70.5 fL (35.1-46.3); Red Blood Cell Count 2.46 M/mm3 (4.30-5.90); White Blood Cell Count 9.09 K/mm3 (4.00-11.30)
[2022-10-14 17:14] LABS: Mean Platelet Volume 13.5 fL (9.1-12.4)
--- NOTE | 2022-10-14 17:58 | NUR ---
Shift Summary No acute channges during shift. Pt up with physical therapy this afternoon, pt appearing to nap this afternoon. Other vss. No other acute changes noted. Will continue to monitor.
[2022-10-14 20:06] VITALS: BP 125/44
[2022-10-14 23:22] VITALS: BP 140/42
[2022-10-15 03:11] VITALS: BP 146/63
[2022-10-15 03:46] LABS: BASOPHILS ABSOLUTE AUTO 0.06 K/mm3 (0.00-0.23); BASOPHILS PERCENT AUTO 1 % (0-2); EOSINOPHILS ABSOLUTE AUTO 0.41 K/mm3 (0.00-0.68); EOSINOPHILS PERCENT AUTO 5 % (0-6); Hematocrit 23.2 % (37.0-53.0); Hemoglobin 7.4 g/dL (13.5-17.5); IMMATURE GRAN ABSOLUTE AUTO 0.07 K/mm3 (0.00-0.10); IMMATURE GRAN PERCENT AUTO 1 % (0-1); LYMPHOCYTES ABSOLUTE AUTO 1.35 K/mm3 (0.84-5.20); LYMPHOCYTES PERCENT AUTO 15 % (21-46); MONOCYTES ABSOLUTE AUTO 0.81 K/mm3 (0.16-1.47); MONOCYTES PERCENT AUTO 9 % (4-13); Mean Corpuscular HGB 33.2 pg (26.0-34.0); Mean Corpuscular HGB Conc 31.9 g/dL (31.5-36.5); Mean Corpuscular Volume 104 fL (80-100); NEUTROPHILS PERCENT AUTO 70 % (41-73); Platelet Count 91 K/mm3 (150-400); RDW Coefficient Variation 18.5 % (11.7-14.2); RDW Standard Deviation 69.8 fL (35.1-46.3); Red Blood Cell Count 2.23 M/mm3 (4.30-5.90)
[2022-10-15 03:55] LABS: Mean Platelet Volume 13.6 fL (9.1-12.4)
[2022-10-15 03:58] LABS: Anti-Xa UFH, PHA Monitoring 0.63 IU/mL; International Normalized Ratio 1.32; Prothrombin Time Results 13.6 Sec (9.7-11.5)
[2022-10-15 04:01] LABS: Bun/Creatinine Ratio 17.2 (12.0-20.0); Calcium, Blood 7.9 mg/dL (8.5-10.1); Creatinine, Blood 1.92 mg/dL (0.60-1.20); Potassium, Blood 3.8 mmol/L (3.5-5.5)
--- NOTE | 2022-10-15 05:47 | NUR ---
SHIFT SUMMARY: Pt is oriented to person, place, and situation but is forgetful and is not oriented to time/ date. He slept for most of the night and needed reorienting upon waking up. Heparin drip running at 11units/kg/hour, rate unchanged. Vitals stable, no hypotension or bradycardia. Rhythm is NSR with 1st degree and BBB, very rare paced beats. Pacer site clean/dry/intact, arm in sling. Needs occasional reminders not to lift or use left arm. Significant bruising of right hip. This AM, he complained of increased pain in right hip and I medicated him with 5mg oxycodone.
[2022-10-15 07:33] VITALS: BP 137/56
[2022-10-15 11:26] VITALS: BP 142/49
[2022-10-15 16:38] VITALS: BP 133/47
--- NOTE | 2022-10-15 18:24 | NUR ---
Shift Summary Pt alert, oriented X3; calm and cooperative with care. Pt resting in bed for majority of shift, up to chair for breakfast and dinner. Up with 1 person assist. Pt reports pain to right hip area and left chest wall where pacer was placed, medicated per emar. Pt denies chest pain/pressure, sob, nausea, dizziness and numb/tingling. Spo2 >90% on ra, breathing even and unlabored. Tele sinus with bbb, occasionally paced, bp stable. Abd soft nontender, +bt. Edema noted to ble and bue. Heparin infusing per order. Other vss. No other acute changes noted. Will continue to monitor Patient and family educated on risk re: ingnition sources and risk of injury while o2 is in use. Patient denies smoking and patient and family verbalize understanding.
[2022-10-15 19:57] VITALS: BP 154/38
[2022-10-15 23:12] VITALS: BP 105/73
[2022-10-16 03:46] VITALS: BP 117/47
[2022-10-16 04:05] LABS: BASOPHILS ABSOLUTE AUTO 0.05 K/mm3 (0.00-0.23); BASOPHILS PERCENT AUTO 1 % (0-2); EOSINOPHILS ABSOLUTE AUTO 0.34 K/mm3 (0.00-0.68); EOSINOPHILS PERCENT AUTO 4 % (0-6); Hematocrit 22.7 % (37.0-53.0); Hemoglobin 7.4 g/dL (13.5-17.5); IMMATURE GRAN ABSOLUTE AUTO 0.05 K/mm3 (0.00-0.10); IMMATURE GRAN PERCENT AUTO 1 % (0-1); LYMPHOCYTES ABSOLUTE AUTO 1.11 K/mm3 (0.84-5.20); LYMPHOCYTES PERCENT AUTO 12 % (21-46); MONOCYTES ABSOLUTE AUTO 0.79 K/mm3 (0.16-1.47); MONOCYTES PERCENT AUTO 9 % (4-13); Mean Corpuscular HGB 33.5 pg (26.0-34.0); Mean Corpuscular HGB Conc 32.6 g/dL (31.5-36.5); Mean Corpuscular Volume 103 fL (80-100); NEUTROPHILS ABSOLUTE AUTO 6.83 K/mm3 (1.96-9.15); NEUTROPHILS PERCENT AUTO 75 % (41-73); Platelet Count 96 K/mm3 (150-400); RDW Coefficient Variation 18.2 % (11.7-14.2); RDW Standard Deviation 68.2 fL (35.1-46.3); Red Blood Cell Count 2.21 M/mm3 (4.30-5.90); White Blood Cell Count 9.17 K/mm3 (4.00-11.30)
[2022-10-16 04:16] LABS: International Normalized Ratio 1.45; Mean Platelet Volume 13.2 fL (9.1-12.4); Prothrombin Time Results 14.9 Sec (9.7-11.5)
[2022-10-16 04:20] LABS: Bun/Creatinine Ratio 19.7 (12.0-20.0); Calcium, Blood 7.8 mg/dL (8.5-10.1); Creatinine, Blood 1.73 mg/dL (0.60-1.20); Potassium, Blood 3.6 mmol/L (3.5-5.5)
--- NOTE | 2022-10-16 04:52 | NUR ---
SHIFT SUMMARY PT REMAINS A/Ox2-3, CONFUSED AT TIMES BUT EASILY REDIRECTABLE AND IS VERY COOPERATIVE WITH CARE. ANSWERS MOST QUESTIONS APPROPRIATELY AND ABLE TO MAKE HIS NEEDS KNOWN. NO ACUTE EVENTS OVERNIGHT FOR PT WAS ABLE TO SLEEP T/O MOST OF THE NIGHT. CARDIAC ODEN, PT REMAINS IN SR 70-80'S WITH NO C/O CP OR PRESSURE T/O THE NIGHT. CONTINUES TO C/O PACER SITE TENDERNESS, NO SIGNS OF BLEEDING, SWELLING, OR PACER LEAD DETACHMENT NOTED. PAIN WELL MANAGED WITH PRN PAIN MEDICATIONS PER EMAR. PT EDUCATED ON PROTECTIVE MEASURES TO ENSURE SAFETY OF PACER SITE. SBP HAS BEEN STABLE 110-140'S. RESPIRATORY, MAINTAINS SPO2 >94% ON RA, DENIES SOB OR DYSPNEA AT REST. GI/, ABLE TO VOID INTO URINAL WITH STAFF ASSIST, NO BM THIS SHIFT. ABLE TO ABULATE WITH 1-2 ASSIST TO THE BATHROOM. HEPARIN IS BEING MANAGED VIA PHARMACY, HAS BEEN INFUSING ALL NIGHT PER EMAR. ASSESSED PT FOR RISKS OF ANY IGNITION SOURCES WELL BEHAVIORS FOR INCREASED RISKS OF FIRE DANGER. PT EDUCATED ON COMMON SOURCES OF IGNITION WELL NEED TO KEEP/MAINTAIN A SAFE ENVIRONMENT. NO NEW ORDERS AT THIS TIME, WILL REPORT TO ONCOMING RN. DERECK ANTONIO OF THIS NOTE.
[2022-10-16 07:58] VITALS: BP 116/85
--- NOTE | 2022-10-16 08:25 | NUR ---
AM NOTE Pt alert, oriented x2-3, calm and cooperative with care. Pt resting in bed up to chair with 1 person assist. Pt reporting pain to right hip and left shoulder, medicated per emar. Pt denies chest pain/pressure, sob, nausea, dizziness and numb/tingling. Tele sinus, bp stable. Spo2 >90% on ra, breathing even and unlabored. Abd soft, nontender, +bt. Edema noted to ble 1-2+, bue nonpitting. Other vss. No other acute changes noted will continue to monitor. Per dr Bullock restarting am lantus and medical status without tele.
[2022-10-16 11:12] VITALS: BP 114/40
[2022-10-16 16:23] VITALS: BP 130/60
--- NOTE | 2022-10-16 17:16 | NUR ---
Shift Summary No acute changes during shift. Pt up in chair for meals. Other vss. Report given to RN assuming care of patient.
--- NOTE | 2022-10-16 18:06 | NUR ---
PT TRANSFERRED FROM PCU 2 TO ROOM 325- REPORT FROM JAIRO MILLER, WHEELCHAIR TO BED TX, 1 SBA TO BED
[2022-10-16 19:43] VITALS: BP 96/76
[2022-10-16 22:35] VITALS: BP 138/60
[2022-10-17 02:12] VITALS: BP 124/45
[2022-10-17 04:28] LABS: BASOPHILS ABSOLUTE AUTO 0.04 K/mm3 (0.00-0.23); BASOPHILS PERCENT AUTO 1 % (0-2); EOSINOPHILS ABSOLUTE AUTO 0.41 K/mm3 (0.00-0.68); EOSINOPHILS PERCENT AUTO 5 % (0-6); Hematocrit 21.4 % (37.0-53.0); Hemoglobin 7.1 g/dL (13.5-17.5); IMMATURE GRAN ABSOLUTE AUTO 0.06 K/mm3 (0.00-0.10); IMMATURE GRAN PERCENT AUTO 1 % (0-1); LYMPHOCYTES ABSOLUTE AUTO 1.47 K/mm3 (0.84-5.20); LYMPHOCYTES PERCENT AUTO 17 % (21-46); MONOCYTES ABSOLUTE AUTO 0.75 K/mm3 (0.16-1.47); MONOCYTES PERCENT AUTO 9 % (4-13); Mean Corpuscular HGB Conc 33.2 g/dL (31.5-36.5); Mean Corpuscular Volume 102 fL (80-100); NEUTROPHILS ABSOLUTE AUTO 6.11 K/mm3 (1.96-9.15); NEUTROPHILS PERCENT AUTO 69 % (41-73); Platelet Count 89 K/mm3 (150-400); RDW Coefficient Variation 18.3 % (11.7-14.2); RDW Standard Deviation 67.3 fL (35.1-46.3); Red Blood Cell Count 2.09 M/mm3 (4.30-5.90); White Blood Cell Count 8.84 K/mm3 (4.00-11.30)
[2022-10-17 04:31] LABS: Mean Platelet Volume 13.5 fL (9.1-12.4)
[2022-10-17 04:49] LABS: International Normalized Ratio 1.59; Prothrombin Time Results 16.3 Sec (9.7-11.5)
[2022-10-17 05:42] LABS: Albumin, Blood 1.9 g/dL (3.4-5.0); Albumin/Globulin Ratio 0.7 (0.8-1.8); Bilirubin, Total 0.5 mg/dL (0.1-1.0); Bun/Creatinine Ratio 17.9 (12.0-20.0); Calcium, Blood 7.8 mg/dL (8.5-10.1); Creatinine, Blood 1.84 mg/dL (0.60-1.20); Globulin, Blood 2.7 g/dL (2.2-4.0); Potassium, Blood 3.5 mmol/L (3.5-5.5); Total Protein, Blood 4.6 g/dL (6.4-8.2)
[2022-10-17 07:34] VITALS: BP 133/72
--- NOTE | 2022-10-17 07:34 | NUR ---
SUMMARY PT SLEPT OFF AND ON TONIGHT. PT IS COOPERATIVE WITH PACER PRECAUTIONS,ALTHOUGH NEEDS REMINDING.MEPILEX WAS PLACED TO PTS COCCYX FOR SCABBED AREA.
[2022-10-17 12:11] LABS: Hematocrit 23.2 % (37.0-53.0); Hemoglobin 7.4 g/dL (13.5-17.5)
[2022-10-17 14:41] VITALS: BP 119/39
--- NOTE | 2022-10-17 18:19 | NUR ---
SUMMARY S/P PACER PLACEMENT, L ARM IN SLING, DSG ON L CHEST C/D/I, DENIED ANY CHEST PAIN, SOB, WORKED WITH PHYSICAL THERAPY TODAY, AMBULATED DOWN THE HALLS W/ JESUS WALKER, TOLERATED WELL, 1 PERSON ASSIST W/ HEMIWALKER TO THE BATHROOM, PLAN TO DC HOME W/ HOME HEALTH TOMORROW PER DR. BORJA.
[2022-10-17 19:15] VITALS: BP 122/59
[2022-10-17 22:01] LABS: Hematocrit 20.3 % (37.0-53.0); Hemoglobin 6.6 g/dL (13.5-17.5)
[2022-10-18] VITALS (8 sets, daily range): BP systolic 115–137; BP diastolic 35–64
[2022-10-18 05:17] LABS: BASOPHILS ABSOLUTE AUTO 0.04 K/mm3 (0.00-0.23); BASOPHILS PERCENT AUTO 1 % (0-2); EOSINOPHILS ABSOLUTE AUTO 0.35 K/mm3 (0.00-0.68); EOSINOPHILS PERCENT AUTO 4 % (0-6); Hematocrit 24.9 % (37.0-53.0); Hemoglobin 8.2 g/dL (13.5-17.5); IMMATURE GRAN ABSOLUTE AUTO 0.05 K/mm3 (0.00-0.10); IMMATURE GRAN PERCENT AUTO 1 % (0-1); LYMPHOCYTES ABSOLUTE AUTO 1.45 K/mm3 (0.84-5.20); LYMPHOCYTES PERCENT AUTO 18 % (21-46); MONOCYTES PERCENT AUTO 10 % (4-13); Mean Corpuscular HGB 33.1 pg (26.0-34.0); Mean Corpuscular HGB Conc 32.9 g/dL (31.5-36.5); Mean Corpuscular Volume 100 fL (80-100); NEUTROPHILS PERCENT AUTO 66 % (41-73); Platelet Count 86 K/mm3 (150-400); RDW Coefficient Variation 18.2 % (11.7-14.2); RDW Standard Deviation 66.2 fL (35.1-46.3); Red Blood Cell Count 2.48 M/mm3 (4.30-5.90); White Blood Cell Count 7.99 K/mm3 (4.00-11.30)
[2022-10-18 05:20] LABS: Mean Platelet Volume 13.4 fL (9.1-12.4)
[2022-10-18 05:36] LABS: Anti-Xa UFH, PHA Monitoring <0.10 IU/mL; International Normalized Ratio 2.55; Prothrombin Time Results 25.4 Sec (9.7-11.5)
[2022-10-18 05:56] LABS: Bun/Creatinine Ratio 18.6 (12.0-20.0); Calcium, Blood 7.8 mg/dL (8.5-10.1); Creatinine, Blood 1.77 mg/dL (0.60-1.20); Potassium, Blood 3.5 mmol/L (3.5-5.5)
--- NOTE | 2022-10-18 05:56 | NUR ---
SHIFT SUMMARY; PT HAD A HGB OF 6.6 LAST NIGHT, CALLED THE RESIDENT WHO THEN ORDERED THAT WE STOP THE HEPARIN DRIP AND GIVE 1 UNIT OF RBC'S. THE PTS HGB THIS AM WAS 8.2. THE PT NOTES THAT HE FEELS LESS FATIGUED NOW. THE PT IS AXO X3-4, EASILY REDIRECTABLE. THE PT IS A 1 ASSIST TO THE BATHROOM. THE PT WAS MEDICATED ONCE LAST NIGHT FOR R HIP PAIN. THE PT HAS BEEN SLEEPING ALMOST THE ENTIRETY OF THE SHIFT. THE PT DENIES ANY SOB, CHEST PAIN/PRESSURE OR N/V. CURRENTLY THE PT IS SLEEPING IN BED WITH THE BED IN THE LOWEST POSITION AND THE CALL LIGHT AT BEDSIDE.
--- NOTE | 2022-10-18 13:27 | NUR ---
RN NOTE PT AND FAMILY VOICED UNDERSTANDING OF EDUCATION RE IGNITION SOURCES AND RISK OF INJURY WHEN OXYGEN IN USE. PT DENIES SMOKING. HOURLY ROUNDING INCLUDES CHECKING FOR CHANGE IN RISK STATUS. MR RINCON WORKED WITH PT AND OT TODAY, WALKED IN HALLWAYS. WENT FOR CT SCAN. 1 PERSON ASSIST TO TRANSFER WITH GAITBELT AND WALKER. LARGE PURPLE BRUISE RIGHT LOWER BACK. MEPILEX R BUTTOCK OVER APPROX 1.5CM ROUND SKIN WOUND. SEVERAL HEALING SCABS AND BRUISES SCATTERED THROUGHOUT. C/O MILD NUMBNESS AND TINGLING TO TOES. LEFT ARM IN SLING, REMINDED MULTIPLE TIMES NOT TO LIFT LEFT ARM, PT VOICED UNDERSTANDING BUT NEEDS REMINDING. DAUGHTER AT BEDSIDE.
[2022-10-18 14:19] LABS: Hematocrit 25.6 % (37.0-53.0); Hemoglobin 8.4 g/dL (13.5-17.5)
--- NOTE | 2022-10-18 14:31 | NUR ---
RN NOTE BLOOD GLUCOSE WAS LOW THIS AM. DR NOBLE NOTIFIED AND AM GLARGINE HELD PER VERBAL ORDER. PT WAS ASYMPTOMATIC. BLOOD GLUCOSE RAISED AFTER JUICE AND BREAKFAST.
--- NOTE | 2022-10-18 19:40 | NUR ---
SHIFT SUMMARY NO MAJOR CHANGES SINCE PRIOR NOTES. BLOOD GLUCOSE IMPROVED SINCE THIS MORNING. NO PAIN MEDS REQUIRED. PT DENIES COMPLAINTS OR CONCERNS. BED LOW, CALL LIGHT IN REACH.
[2022-10-19 04:30] VITALS: BP 148/49
[2022-10-19 05:44] LABS: International Normalized Ratio 3.41; Prothrombin Time Results 33.4 Sec (9.7-11.5)
--- NOTE | 2022-10-19 06:48 | NUR ---
SUMMARY NO ACUTE CHANGES NOTED THROUGH THE NIGHT, VSS, ON RA, DENIES CP/PRESSURE, DRSG REMAINS C/D/I, L.ARM IN SLING, CALLS FRO ASSISTANCE PRN, USING URINAL, TOLERATING PO INTAKE, CALL LIGHT IN REACH, WCTM & REPORT TO DAY RN
[2022-10-19 07:08] LABS: BASOPHILS ABSOLUTE AUTO 0.05 K/mm3 (0.00-0.23); BASOPHILS PERCENT AUTO 1 % (0-2); EOSINOPHILS ABSOLUTE AUTO 0.34 K/mm3 (0.00-0.68); EOSINOPHILS PERCENT AUTO 4 % (0-6); Hematocrit 25.4 % (37.0-53.0); Hemoglobin 8.3 g/dL (13.5-17.5); IMMATURE GRAN ABSOLUTE AUTO 0.06 K/mm3 (0.00-0.10); IMMATURE GRAN PERCENT AUTO 1 % (0-1); LYMPHOCYTES ABSOLUTE AUTO 0.99 K/mm3 (0.84-5.20); LYMPHOCYTES PERCENT AUTO 13 % (21-46); MONOCYTES ABSOLUTE AUTO 0.83 K/mm3 (0.16-1.47); MONOCYTES PERCENT AUTO 11 % (4-13); Mean Corpuscular HGB 33.7 pg (26.0-34.0); Mean Corpuscular HGB Conc 32.7 g/dL (31.5-36.5); Mean Corpuscular Volume 103 fL (80-100); NEUTROPHILS ABSOLUTE AUTO 5.44 K/mm3 (1.96-9.15); NEUTROPHILS PERCENT AUTO 71 % (41-73); Platelet Count 97 K/mm3 (150-400); RDW Coefficient Variation 18.7 % (11.7-14.2); RDW Standard Deviation 70.2 fL (35.1-46.3); Red Blood Cell Count 2.46 M/mm3 (4.30-5.90); White Blood Cell Count 7.71 K/mm3 (4.00-11.30)
[2022-10-19 07:19] LABS: Bun/Creatinine Ratio 17.3 (12.0-20.0); Calcium, Blood 7.8 mg/dL (8.5-10.1); Creatinine, Blood 1.68 mg/dL (0.60-1.20); Potassium, Blood 3.3 mmol/L (3.5-5.5)
[2022-10-19 08:05] VITALS: BP 151/53
[2022-10-19 15:59] VITALS: BP 136/63
--- NOTE | 2022-10-19 19:24 | NUR ---
SHIFT SUMMARY ALERT, ORIENTED, PLEASANT, AND COOPERATIVE. GENERALIZED EDEMA IMPROVING WITH DIURETIC. LS CLEAR. TELE PACED AT 60. SBA UP TO CHAIR, WORKED WITH PT/OT. NEW PACER TO LEFT CHEST WALL, LEFT ARM IN SLING. TOLERATING ADA DIET AND LIQUIDS. ACHS. SOME LOW BLOOD SUGARS, 2100 DOSE OF LANTUS LOWERED FROM 20 UNITS TO 10 UNITS. VOIDING WELL, USING URINAL. DISCUSSED DISCHARGE PLAN WITH FAMILY AND CARE MANAGEMENT AND OPTED FOR REHAB. PLAN TO DC TO SNF WHEN BED AVAILABLE. REPORT GIVEN TO VENEER SHEET REPAIRER RN.
[2022-10-19 19:50] VITALS: BP 152/40
--- NOTE | 2022-10-20 04:45 | NUR ---
SHIFT SUMMARY PT IS A&O4, SB TO THE BR, RA, VSS, PRN PAIN MEDICATION GIVEN PER MAR, NO ACUTE OVERNIGHT EVENTS, HOURLY ROUNDING AND FIRE IGNITION EDUCATION PROVIDED, CONTINUE POC
[2022-10-20 04:47] VITALS: BP 134/49
[2022-10-20 05:57] LABS: International Normalized Ratio 3.17; Prothrombin Time Results 31.2 Sec (9.7-11.5)
[2022-10-20 07:57] VITALS: BP 135/40
[2022-10-20 14:46] LABS: Influenza A, PCR NEGATIVE (NEGATIVE); Influenza B, PCR NEGATIVE (NEGATIVE); Resp Syncytial Virus, PCR NEGATIVE (NEGATIVE); SARS-Cov-2 (COVID-19) PCR, MMC NEGATIVE (NEGATIVE)
--- NOTE | 2022-10-20 15:32 | NUR ---
REPORT PASSED TO RN AT [facility], PLAN IS FOR TRANSFER AT 1600
--- NOTE | 2022-10-20 17:02 | NUR ---
DISCHARGE : PRESCHOOL TEACHER ASSISTANT PRINTED PACKET, PACKET GIVEN TO TRANSPORTED. PT EDUCATED ON AFTERCARE AND PRECAUTIONS FOR PACE MAKER PLACEMENT. LEFT UNIT AT ABOUT 1600 VIA WHEELCHAIR WITH TRANSPORT, PT FAMILY AWARE
[2022-10-20] MEDS ORDERED: HUMALOG KW100 UNIT/1 SC (18:25)
== END 2022-10-20 16:20 | DRG 242 ==
LOC: ER 10:58 → MEDS 14:42 → PCU 14:42 → MEDS 09-29 11:35 → PCU 10-09 11:50 → MEDS 10-16 17:16 → ENPENDDIS 10-20 15:09 → MEDS 10-20 16:20
PROVIDERS: Emergency Medicine; Family Medicine; Family Medicine Adult Medicine; Hospitalist; Internal Medicine Cardiovascular Disease; Pharmacist; Student in an Organized Health Care Education/Training Program; ADMIT Internal Medicine
PROC: 02H63JZ Insertion of Pacemaker Lead into Right Atrium, Percutaneous Approach (ICD-10-PCS; 2022-10-12)
PROC: 02HK3JZ Insertion of Pacemaker Lead into Right Ventricle, Percutaneous Approach (ICD-10-PCS; 2022-10-12)
PROC: 0DJ08ZZ Inspection of Upper Intestinal Tract, Via Natural or Artificial Opening Endoscopic (ICD-10-PCS; 2022-10-12)
PROC: 0JH606Z Insertion of Pacemaker, Dual Chamber into Chest Subcutaneous Tissue and Fascia, Open Approach (ICD-10-PCS; principal; 2022-10-12 15:30)
PROC: 30233N1 Transfusion of Nonautologous Red Blood Cells into Peripheral Vein, Percutaneous Approach (ICD-10-PCS; 2022-10-17)
DX: I48.0 Paroxysmal atrial fibrillation (principal); G92.8 Other toxic encephalopathy; I21.A1 Myocardial infarction type 2; I50.23 Acute on chronic systolic (congestive) heart failure; E87.21 Acute metabolic acidosis; C85.90 Non-Hodgkin lymphoma, unspecified, unspecified site; N17.9 Acute kidney failure, unspecified; N18.4 Chronic kidney disease, stage 4 (severe); I13.0 Hypertensive heart and chronic kidney disease with heart failure and stage 1 through stage 4 chronic kidney disease, or unspecified chronic kidney disease; I65.29 Occlusion and stenosis of unspecified carotid artery; E04.1 Nontoxic single thyroid nodule; E11.65 Type 2 diabetes mellitus with hyperglycemia; W18.30XA Fall on same level, unspecified, initial encounter; S09.90XA Unspecified injury of head, initial encounter; E87.6 Hypokalemia; E16.0 Drug-induced hypoglycemia without coma; T38.3X5A Adverse effect of insulin and oral hypoglycemic [antidiabetic] drugs, initial encounter; D69.6 Thrombocytopenia, unspecified; S80.11XA Contusion of right lower leg, initial encounter; R55 Syncope and collapse; Z20.822 Contact with and (suspected) exposure to COVID-19; B95.8 Unspecified staphylococcus as the cause of diseases classified elsewhere; I45.5 Other specified heart block; N40.0 Benign prostatic hyperplasia without lower urinary tract symptoms; E78.5 Hyperlipidemia, unspecified; I49.5 Sick sinus syndrome; I44.0 Atrioventricular block, first degree; E11.22 Type 2 diabetes mellitus with diabetic chronic kidney disease; I44.7 Left bundle-branch block, unspecified; K26.9 Duodenal ulcer, unspecified as acute or chronic, without hemorrhage or perforation; K40.90 Unilateral inguinal hernia, without obstruction or gangrene, not specified as recurrent; R29.6 Repeated falls; I25.10 Atherosclerotic heart disease of native coronary artery without angina pectoris; D63.1 Anemia in chronic kidney disease; I48.92 Unspecified atrial flutter; G47.33 Obstructive sleep apnea (adult) (pediatric); M25.512 Pain in left shoulder; R20.0 Anesthesia of skin; Z88.0 Allergy status to penicillin; Z88.8 Allergy status to other drugs, medicaments and biological substances; Z79.899 Other long term (current) drug therapy; Z95.2 Presence of prosthetic heart valve; Z79.01 Long term (current) use of anticoagulants; Z79.4 Long term (current) use of insulin; Z86.73 Personal history of transient ischemic attack (TIA), and cerebral infarction without residual deficits; Z90.49 Acquired absence of other specified parts of digestive tract; Z90.5 Acquired absence of kidney; Z87.891 Personal history of nicotine dependence; Z79.2 Long term (current) use of antibiotics
CPT/HCPCS: 0241U; 33208; 33228; 36415; 36430; 51701; 70450; 70496; 70498; 71045; 71046; 72125; 72193; 73502; 74176; 76882; 76937; 80048; 80053; 80061; 80069; 81001; 82247; 82248; 82272; 82607; 82728; 82746; 82803; 82947; 83036; 83540; 83550; 83605; 83615; 83735; 83880; 84100; 84439; 84443; 84481; 84484; 85014; 85018; 85025; 85027; 85045; 85520; 85610; 85730; 86850; 86900; 86901; 86923; 87040; 87077; 87086; 87186; 93005; 93010; 93880; 94760; 96361-59; 96365-59; 96366-59; 96368; 96376-59; 97110; 97110-CQ; 97116; 97116-CQ; 97129; 97130; 97162; 97166; 97530; 97535; 99152; 99153; 99285-25; A9270; C1751; C1769; C1781; C1785; C1894; C1898; C8929; J1644; J1815; J1940; J2001; J2250; J2704; J2916; J3010; J3370; J3475; J3480; J7030; J7040; J7050; J7120; P9016; Q9957; Q9967

== ENCOUNTER 2022-11-13 09:01 | Emergency (ER) | payer OTHER ==
[~2022-11-13] VITALS: Ht 170.2 cm; Wt 81.7 kg
[~2022-11-13 09:01] MED LIST changes: +BRUKINSA80 MG PO; +HUMALOG KW100 UNIT/1 SC; +INSULIN GL100 UNIT/3 SC
[2022-11-13 09:49] LABS: BASOPHILS ABSOLUTE AUTO 0.05 K/mm3 (0.00-0.23); BASOPHILS PERCENT AUTO 1 % (0-2); EOSINOPHILS ABSOLUTE AUTO 0.24 K/mm3 (0.00-0.68); EOSINOPHILS PERCENT AUTO 3 % (0-6); Hematocrit 27.8 % (37.0-53.0); Hemoglobin 9.2 g/dL (13.5-17.5); IMMATURE GRAN ABSOLUTE AUTO 0.02 K/mm3 (0.00-0.10); IMMATURE GRAN PERCENT AUTO 0 % (0-1); LYMPHOCYTES ABSOLUTE AUTO 0.96 K/mm3 (0.84-5.20); LYMPHOCYTES PERCENT AUTO 13 % (21-46); MONOCYTES ABSOLUTE AUTO 0.55 K/mm3 (0.16-1.47); MONOCYTES PERCENT AUTO 7 % (4-13); Mean Corpuscular HGB 34.1 pg (26.0-34.0); Mean Corpuscular HGB Conc 33.1 g/dL (31.5-36.5); Mean Corpuscular Volume 103 fL (80-100); NEUTROPHILS ABSOLUTE AUTO 5.58 K/mm3 (1.96-9.15); NEUTROPHILS PERCENT AUTO 75 % (41-73); Platelet Count 94 K/mm3 (150-400); RDW Coefficient Variation 15.9 % (11.7-14.2); RDW Standard Deviation 59.4 fL (35.1-46.3)
[2022-11-13 10:34] LABS: Albumin, Blood 2.5 g/dL (3.4-5.0); Bilirubin, Total 0.6 mg/dL (0.1-1.0); Bun/Creatinine Ratio 12.1 (12.0-20.0); Calcium, Blood 7.6 mg/dL (8.5-10.1); Creatinine, Blood 1.65 mg/dL (0.60-1.20); Globulin, Blood 2.4 g/dL (2.2-4.0); Potassium, Blood 2.4 mmol/L (3.5-5.5); Total Protein, Blood 4.9 g/dL (6.4-8.2)
[2022-11-13 10:51] LABS: International Normalized Ratio 1.78; Prothrombin Time Results 18.1 Sec (9.7-11.5)
[2022-11-13 14:00] VITALS: BP 124/60
== END 2022-11-13 14:28 | disposition home or self-care (01) ==
LOC: ER 09:01
PROVIDERS: Emergency Medicine; Student in an Organized Health Care Education/Training Program
DX: R55 Syncope and collapse (principal); I48.91 Unspecified atrial fibrillation; D63.1 Anemia in chronic kidney disease; N18.4 Chronic kidney disease, stage 4 (severe); I12.9 Hypertensive chronic kidney disease with stage 1 through stage 4 chronic kidney disease, or unspecified chronic kidney disease; I25.2 Old myocardial infarction; E11.22 Type 2 diabetes mellitus with diabetic chronic kidney disease
CPT/HCPCS: 80053; 82947; 84484; 85025; 85610; A9270; J3480

== ENCOUNTER → 2022-11-16 | Outpatient (CLI) | payer OTHER ==
[2022-11-16 15:44] LABS: Source, Urine Clean Catch
[2022-11-16 16:11] LABS: Appearance, Urine Clear (Clear); Bilirubin, Urine Neg (Neg); Blood, Urine 5+ (Neg); Color, Urine Yellow (P-Yellow); Glucose Qualitative, Urine 4+ (Neg); Ketones, Urine Neg (Neg); Leukocyte Esterase, Urine 1+ (Neg); Nitrite, Urine Neg (Neg); Protein, Urine 3+ (Neg); Specific Gravity, Urine 1.015 (1.003-1.022); Urobilinogen, Urine NORM (Normal)
[2022-11-16 16:22] LABS: Bacteria Many /hpf; Squamous Epithelial Cells Few /hpf (Few)
[2022-11-16 16:23] LABS: Yeast/Fungi Urine Few /hpf
== END | disposition home or self-care (01) ==
LOC: LAB SHORT 15:41
PROVIDERS: Nurse Practitioner Acute Care
DX: N39.0 Urinary tract infection, site not specified (principal)
CPT/HCPCS: 81001; 87086

== ENCOUNTER 2022-11-26 08:11 | Observation (INO) | payer OTHER ==
[~2022-11-26] VITALS: Ht 172.7 cm; Wt 71.4 kg
[2022-11-26 09:37] LABS: BASOPHILS ABSOLUTE AUTO 0.03 K/mm3 (0.00-0.23); BASOPHILS PERCENT AUTO 0 % (0-2); EOSINOPHILS ABSOLUTE AUTO 0.17 K/mm3 (0.00-0.68); EOSINOPHILS PERCENT AUTO 3 % (0-6); Hematocrit 30.8 % (37.0-53.0); Hemoglobin 10.3 g/dL (13.5-17.5); IMMATURE GRAN ABSOLUTE AUTO 0.03 K/mm3 (0.00-0.10); IMMATURE GRAN PERCENT AUTO 0 % (0-1); LYMPHOCYTES ABSOLUTE AUTO 0.95 K/mm3 (0.84-5.20); LYMPHOCYTES PERCENT AUTO 14 % (21-46); MONOCYTES ABSOLUTE AUTO 0.49 K/mm3 (0.16-1.47); MONOCYTES PERCENT AUTO 7 % (4-13); Mean Corpuscular HGB 33.9 pg (26.0-34.0); Mean Corpuscular HGB Conc 33.4 g/dL (31.5-36.5); Mean Corpuscular Volume 101 fL (80-100); NEUTROPHILS ABSOLUTE AUTO 5.25 K/mm3 (1.96-9.15); NEUTROPHILS PERCENT AUTO 76 % (41-73); Platelet Count 75 K/mm3 (150-400); RDW Coefficient Variation 14.6 % (11.7-14.2); RDW Standard Deviation 53.6 fL (35.1-46.3); Red Blood Cell Count 3.04 M/mm3 (4.30-5.90); White Blood Cell Count 6.92 K/mm3 (4.00-11.30)
[2022-11-26 09:43] LABS: Mean Platelet Volume 14.4 fL (9.1-12.4)
[2022-11-26 09:52] LABS: International Normalized Ratio 2.41; Prothrombin Time Results 24.1 Sec (9.7-11.5)
[2022-11-26 09:55] LABS: Magnesium, Blood 1.5 mg/dL (1.6-2.4)
[2022-11-26 10:08] LABS: Bun/Creatinine Ratio 11.8 (12.0-20.0); Calcium, Blood 7.9 mg/dL (8.5-10.1); Creatinine, Blood 1.78 mg/dL (0.60-1.20); Potassium, Blood 2.4 mmol/L (3.5-5.5)
[2022-11-26 11:44] VITALS: BP 119/108
[2022-11-26] MEDS ORDERED: FELODIPINE ER5 M2 PO (12:19)
[2022-11-26] MEDS ORDERED: WARF2.5 PO (13:25)
[2022-11-26 16:15] VITALS: BP 141/93
[2022-11-26 16:16] VITALS: BP 141/93
--- NOTE | 2022-11-26 17:41 | NUR ---
SHIFT SUMMARY: PATIENT ARRIVES IN ROOM AT AROUND 1140 FROM ER FOR DX OF HYPOKALEMIA. PATIENT A&OX4. [place], ANSWER TO QUESTIONS APPROPRIATELY AND ABLE TO MAKE NEEDS KNOWN. MEDRIC AND ADMISSION SKIN ASSESSMENT c 2 RN'S VERIFIERS COMPLETED. DENIES CP/PRESSURE, SOB, N/V AND GENERALIZED PAIN. ON TELE, AFIB HR IN THE HIGH 80'S BPM c BBB AND OCCASIONAL PVC AND V-PACED BEAT. PATIENT HX OF HEART VALVE REPLACEMENT, PACER PLACED ABOUT 3 MONTHS AGO. K IS IMPROVING. RECEIVED K IV AND 40 MEQ PO K. NOTED BRUISING SCATTERED T/O, PLUS 2 EDEMA TO BLE'S. PATIENT REPORTS "ROSACEA" TO FACE. RA c SPO2 100%. LUNGS CLEAR T/O TO AUSCULTATION. PATIENT AMBULATES TO BATHROOM AND BACK IN BED c SBA AND NO ASSISTANCE DEVICES NEEDED. ADA DIET c BS ACHS. BS 110-170 THIS SHIFT, RECEIVED INSULIN PER EMAR COVERAGE. VITAL SIGNS REVIEWED. CALL LIGHT IN REACH. PATIENT EDUCATED ON NON SMOKING POLICY, RISK OF INJURY AND IGNITION SOURCES WHEN O2 IN USE. PATIENT DENIES SMOKING AND VERBALIZED UNDERSTANDING.
[2022-11-26 20:17] VITALS: BP 119/79
--- NOTE | 2022-11-26 21:40 | NUR ---
PT REMAINS IN AFIB BUT NOW AVERAGING HR OF 120'S, HIGH 130'S. CBG WAS 245 AT HS. MADE AWARE W/TOPROL XL 50MG PO X1 AND 4 UNITS REGULAR INSULIN RX'D AND RECIEVED, WILL EVALUATE FOR EFFECT.
[2022-11-27 03:18] VITALS: BP 131/79
--- NOTE | 2022-11-27 06:32 | NUR ---
SUMMARY: PT A/OX4, CALLS APPROPRIATELY TO SPECIFY NEEDS AND IS PLEASANT AND COOPERATIVE W/CARE. HE USES URINAL INDEPENDENTLY AND IS SBA OOB. POTASSIUM IS TRENDING UPWARD, AM LABS PENDING. 2+ EDEMA NOTED TO BLE'S AND SCD'S ARE IN PLACE. HE REMAINS ON TELE IN AFIB W/OCC V-PACED BEATS. HE RECIEVED ADDITIONAL X1 DOSE TOPROL XL 50MG PO FOR HR AVERAGING 120'S WHICH HAS SINCE IMPROVED TO AVERAGE OF 90'S BPM. NO ACUTE CHANGES, VSS/AFEBRILE. POSSIBLE DC TODAY. WCTM AND REPORT TO DAY RN.
[2022-11-27 07:24] VITALS: BP 134/80
[2022-11-27 09:41] LABS: International Normalized Ratio 2.02; Prothrombin Time Results 20.4 Sec (9.7-11.5)
[2022-11-27] MEDS ORDERED: K-TAB ER20 ME2 PO (15:45)
[2022-11-27] MEDS ORDERED: Acetaminophen650 M1 PO (15:45)
--- NOTE | 2022-11-27 17:47 | NUR ---
PT DISCHARGED HOME. DC INSTRUCTIONS AND EDUCATION MATERIAL EXPLAINED TO PT AND TWO SONS. NO NEW QUESTIONS OR CONCERNS. MEDICATIONS FAXED TO [place] [facility]. IV AND TELE DC'D. SONS HELPED PT TO DRESS. ALL PERSONAL BELONGINGS SENT WITH PT. PT TAKEN BY WHEELCHAIR TO WAITNG VEHICLE.
== END 2022-11-27 16:36 | disposition home or self-care (01) ==
LOC: ER 08:11 → MEDS 08:12
PROVIDERS: Pharmacist; Student in an Organized Health Care Education/Training Program; ADMIT Internal Medicine
DX: E87.6 Hypokalemia (principal); I65.29 Occlusion and stenosis of unspecified carotid artery; Z95.0 Presence of cardiac pacemaker; E04.1 Nontoxic single thyroid nodule; Z88.0 Allergy status to penicillin; N18.4 Chronic kidney disease, stage 4 (severe); E11.22 Type 2 diabetes mellitus with diabetic chronic kidney disease; Z95.828 Presence of other vascular implants and grafts
CPT/HCPCS: 36415; 71046; 80048; 82947; 83735; 83880; 84132; 85025; 85610; 85730; 93005; 93010; 96365; 96375; 99285-25; A9270; C1751; G0378; J1815; J3475; J3480; J7030; J7050

== ENCOUNTER 2022-12-19 03:00 | Emergency (ER) | payer OTHER ==
[~2022-12-19] VITALS: Ht 167.6 cm; Wt 81.2 kg
[~2022-12-19 03:00] MED LIST changes: +Acetaminophen650 M1 PO; +K-TAB ER20 ME2 PO
[2022-12-19 03:28] LABS: BASOPHILS ABSOLUTE AUTO 0.02 K/mm3 (0.00-0.23); BASOPHILS PERCENT AUTO 0 % (0-2); EOSINOPHILS ABSOLUTE AUTO 0.16 K/mm3 (0.00-0.68); EOSINOPHILS PERCENT AUTO 3 % (0-6); Hematocrit 29.3 % (37.0-53.0); Hemoglobin 9.5 g/dL (13.5-17.5); IMMATURE GRAN ABSOLUTE AUTO 0.02 K/mm3 (0.00-0.10); IMMATURE GRAN PERCENT AUTO 0 % (0-1); LYMPHOCYTES ABSOLUTE AUTO 0.94 K/mm3 (0.84-5.20); LYMPHOCYTES PERCENT AUTO 15 % (21-46); MONOCYTES ABSOLUTE AUTO 0.65 K/mm3 (0.16-1.47); MONOCYTES PERCENT AUTO 10 % (4-13); Mean Corpuscular HGB 34.2 pg (26.0-34.0); Mean Corpuscular HGB Conc 32.4 g/dL (31.5-36.5); Mean Corpuscular Volume 105 fL (80-100); NEUTROPHILS ABSOLUTE AUTO 4.63 K/mm3 (1.96-9.15); NEUTROPHILS PERCENT AUTO 72 % (41-73); Platelet Count 63 K/mm3 (150-400); RDW Coefficient Variation 13.6 % (11.7-14.2); RDW Standard Deviation 54.4 fL (35.1-46.3); Red Blood Cell Count 2.78 M/mm3 (4.30-5.90); White Blood Cell Count 6.42 K/mm3 (4.00-11.30)
[2022-12-19 03:48] LABS: Mean Platelet Volume 13.9 fL (9.1-12.4)
[2022-12-19 03:52] LABS: Albumin, Blood 2.4 g/dL (3.4-5.0); Bilirubin, Total 0.3 mg/dL (0.1-1.0); Bun/Creatinine Ratio 10.3 (12.0-20.0); Calcium, Blood 7.8 mg/dL (8.5-10.1); Creatinine, Blood 2.03 mg/dL (0.60-1.20); Globulin, Blood 2.4 g/dL (2.2-4.0); Potassium, Blood 3.5 mmol/L (3.5-5.5); Total Protein, Blood 4.8 g/dL (6.4-8.2)
[2022-12-19 05:30] VITALS: BP 127/84
== END 2022-12-19 05:35 | disposition home or self-care (01) ==
LOC: ER 03:00
PROVIDERS: Student in an Organized Health Care Education/Training Program
DX: E11.649 Type 2 diabetes mellitus with hypoglycemia without coma (principal); D64.9 Anemia, unspecified; D69.6 Thrombocytopenia, unspecified; I10 Essential (primary) hypertension; E78.5 Hyperlipidemia, unspecified; Z86.73 Personal history of transient ischemic attack (TIA), and cerebral infarction without residual deficits
CPT/HCPCS: 80053; 82947; 85025; 99285

== ENCOUNTER 2022-12-27 13:43 | Inpatient (IN) | payer OTHER ==
[~2022-12-27] VITALS: Ht 175.3 cm; Wt 89.2 kg
[2022-12-27 14:49] LABS: BASOPHILS ABSOLUTE AUTO 0.03 K/mm3 (0.00-0.23); BASOPHILS PERCENT AUTO 0 % (0-2); EOSINOPHILS ABSOLUTE AUTO 0.15 K/mm3 (0.00-0.68); EOSINOPHILS PERCENT AUTO 1 % (0-6); Hematocrit 29.4 % (37.0-53.0); Hemoglobin 9.6 g/dL (13.5-17.5); IMMATURE GRAN ABSOLUTE AUTO 0.14 K/mm3 (0.00-0.10); IMMATURE GRAN PERCENT AUTO 1 % (0-1); LYMPHOCYTES ABSOLUTE AUTO 1.14 K/mm3 (0.84-5.20); LYMPHOCYTES PERCENT AUTO 7 % (21-46); MONOCYTES ABSOLUTE AUTO 0.72 K/mm3 (0.16-1.47); MONOCYTES PERCENT AUTO 5 % (4-13); Mean Corpuscular HGB 33.7 pg (26.0-34.0); Mean Corpuscular HGB Conc 32.7 g/dL (31.5-36.5); Mean Corpuscular Volume 103 fL (80-100); NEUTROPHILS ABSOLUTE AUTO 13.13 K/mm3 (1.96-9.15); NEUTROPHILS PERCENT AUTO 86 % (41-73); Platelet Count 82 K/mm3 (150-400); RDW Coefficient Variation 13.3 % (11.7-14.2); RDW Standard Deviation 50.6 fL (35.1-46.3); Red Blood Cell Count 2.85 M/mm3 (4.30-5.90); White Blood Cell Count 15.31 K/mm3 (4.00-11.30)
[2022-12-27 15:02] LABS: International Normalized Ratio 1.65; Prothrombin Time Results 16.8 Sec (9.7-11.5)
[2022-12-27 15:05] LABS: Albumin, Blood 2.5 g/dL (3.4-5.0); Bilirubin, Total 0.4 mg/dL (0.1-1.0); Bun/Creatinine Ratio 11.7 (12.0-20.0); Calcium, Blood 7.8 mg/dL (8.5-10.1); Creatinine, Blood 1.54 mg/dL (0.60-1.20); Globulin, Blood 2.6 g/dL (2.2-4.0); Potassium, Blood 3.5 mmol/L (3.5-5.5); Total Protein, Blood 5.1 g/dL (6.4-8.2)
[2022-12-27 15:57] LABS: Mean Platelet Volume 13.8 fL (9.1-12.4)
[2022-12-27 18:44] LABS: Anti-Xa UFH, PHA Monitoring <0.10 IU/mL
[2022-12-27 19:30] VITALS: BP 108/79
[2022-12-28] VITALS (20 sets, daily range): BP systolic 90–155; BP diastolic 49–116
[2022-12-28] MEDS ORDERED: FURO40 PO (00:57)
[2022-12-28] MEDS ORDERED: CALC.25 PO (01:01)
[2022-12-28] MEDS ORDERED: 1/2 NS 250ml250 ML (01:06)
[2022-12-28] MEDS ORDERED: OMEP20ER PO (01:06)
[2022-12-28 03:15] LABS: BASOPHILS ABSOLUTE AUTO 0.06 K/mm3 (0.00-0.23); BASOPHILS PERCENT AUTO 1 % (0-2); EOSINOPHILS ABSOLUTE AUTO 0.31 K/mm3 (0.00-0.68); EOSINOPHILS PERCENT AUTO 3 % (0-6); Hematocrit 29.4 % (37.0-53.0); Hemoglobin 9.6 g/dL (13.5-17.5); IMMATURE GRAN ABSOLUTE AUTO 0.04 K/mm3 (0.00-0.10); IMMATURE GRAN PERCENT AUTO 0 % (0-1); LYMPHOCYTES ABSOLUTE AUTO 1.82 K/mm3 (0.84-5.20); LYMPHOCYTES PERCENT AUTO 18 % (21-46); MONOCYTES ABSOLUTE AUTO 0.61 K/mm3 (0.16-1.47); MONOCYTES PERCENT AUTO 6 % (4-13); Mean Corpuscular HGB 33.7 pg (26.0-34.0); Mean Corpuscular HGB Conc 32.7 g/dL (31.5-36.5); Mean Corpuscular Volume 103 fL (80-100); NEUTROPHILS ABSOLUTE AUTO 7.29 K/mm3 (1.96-9.15); NEUTROPHILS PERCENT AUTO 72 % (41-73); Platelet Count 72 K/mm3 (150-400); RDW Coefficient Variation 13.6 % (11.7-14.2); RDW Standard Deviation 51.6 fL (35.1-46.3); Red Blood Cell Count 2.85 M/mm3 (4.30-5.90); White Blood Cell Count 10.13 K/mm3 (4.00-11.30)
[2022-12-28 03:26] LABS: Mean Platelet Volume 13.4 fL (9.1-12.4)
[2022-12-28 03:43] LABS: International Normalized Ratio 1.57; Prothrombin Time Results 16.1 Sec (9.7-11.5)
[2022-12-28 05:03] LABS: Albumin, Blood 2.3 g/dL (3.4-5.0); Albumin/Globulin Ratio 0.9 (0.8-1.8); Bilirubin, Total 0.6 mg/dL (0.1-1.0); Bun/Creatinine Ratio 12.8 (12.0-20.0); Creatinine, Blood 1.49 mg/dL (0.60-1.20); Globulin, Blood 2.5 g/dL (2.2-4.0); Magnesium, Blood 1.5 mg/dL (1.6-2.4); Potassium, Blood 3.3 mmol/L (3.5-5.5); Total Protein, Blood 4.8 g/dL (6.4-8.2)
--- NOTE | 2022-12-28 06:02 | NUR ---
SHIFT SUMMARY REPORT RECEIVED, PT ADMIT DONE. VERY PLEASENT AND A GOOD HISTORIAN OF [facility], APPROPRIATE AND MAKES NEEDS KNOWN. WAS ABLE TO STAND AT BEDSIDE TO USE URINAL WITHOUT ANY ISSUES AND MINIMAL PAIN. VSS, HEPARIN INFUSING, CONSUKT MADE TO DOC, PT NPO
--- NOTE | 2022-12-28 11:18 | NUR ---
CALLED HOSPITALIST D/T NEW ORDER FOR SECOND DOSE OF IV MAGNESIUM PLACED BY SURGEON. HOSPITALIST GAVE ORDER TO RECHECK PT'S MAGNESIUM PRIOR TO ADMINISTERING SECOND DOSE. ORDER PLACED IN PATIENT'S CHOICE [facility].
--- NOTE | 2022-12-28 14:30 | NUR ---
PT BEEN TO [facility] BY BED WITH MULT ASSIST. PT REPOSITIONED IN BED AND SHIRT WAS CUT OFF AND THROWN AWAY PER PT REQUEST. History, Chart, Medications and Allergies reviewed before start of procedure.Lungs clear T/O to Auscultation. Patient confirms NPO status and agrees with scheduled surgery. Pre-Op teaching done. Pt verbalizes understanding.
--- NOTE | 2022-12-28 19:21 | NUR ---
SHIFT SUMMARY POD0 R HIP FX REPAIR, PT WAS AGGITATED WITH STAFF WHEN HE FIRST CAME OUT OF PACU AND WAS NOT COOPERATING WITH STAFF, PER CATAPULT AND ARRESTING GEAR OFFICER HE WAS A/O X4 PRIOR TO SURGERY, HE WAS MOVED FROM 218 DOWN TO 224 TO BE CLOSER TO THE DESK FOR FASTER RESPONSE TIMES IF HE TRIES GETTING UP ON HIS OWN, BY END OF SHIFT HE IS MUCH MORE COOPERATIVE AND APOLOGIEZED FOR HIS PRIOR BEHAVIOR, HE ASKED IF STAFF COULD EXPLAIN WHAT THEY ARE DOING WITH HIM WHEN THEY COME IN AND THIS RN TOLD HIM AND HIS SON THAT THIS IS SOMETHING WE CAN DO FOR THEM. HE HAS A SITTER AT SHIFT CHANGE BUT AFTER UPDATING CONTACT PRINTER DRY FILM THIS MAY NOT BE NEEDED FOR LONG. NO OTHER EVENTS THIS SHIFT, CALL LIGHT IN REACH.
--- NOTE | 2022-12-29 02:13 | NUR ---
PATIENT UPDATE PATIENT AWOKE CONFUSED AND WANTTING TO GET OUT OF BED, THREE STAFF MEMEBERS TO ASSIST PATIENT INTO BATHROOM AND UP TO CHAIR. LEGS ELEVATED ON PILLOW IN RECLINER. CHAIR ALARM IN PLACE. CALL LIGHT IN REACH, NEW IV DRESSING PLACED.
--- NOTE | 2022-12-29 04:31 | NUR ---
SHIFT SUMMARY PATIENT IS AOX3-4, RESTED T/O START OF SHIFT. WOKE UP APPOX AROUND 2300 AND WAS CONFUSED TRYING TO GET UP OUT OF BED. PATIENT DID AMBULATE TO THE BATHROOM AND VOID. USING GB, FWW, AND 1-2 ASSIST WITH LINES. R ARM IN SLING, R ELBO HAS SKIN TEAR WITH NEW MEPILEX DRESSING PLACED. R HIP WITH BULKY DRESSING C/D/I. IV ABX AND FLUIDS TKO. TOLERATING PO INTAKE. MEDICATED WITH TRAMADOL AND TYLENOL FOR PAIN. CURRENTLY IN CHAIR WITH LEGS ELEVATED AND CHAIR ALARM IN PLACE. VSS, CALL LIGHT IN REACH. TELE IN PLACE A-FIB 116 PER EXPANSION JOINT BUILDER.
[2022-12-29 04:52] LABS: BASOPHILS ABSOLUTE AUTO 0.02 K/mm3 (0.00-0.23); BASOPHILS PERCENT AUTO 0 % (0-2); EOSINOPHILS PERCENT AUTO 0 % (0-6); Hematocrit 30.9 % (37.0-53.0); Hemoglobin 9.9 g/dL (13.5-17.5); IMMATURE GRAN ABSOLUTE AUTO 0.05 K/mm3 (0.00-0.10); IMMATURE GRAN PERCENT AUTO 1 % (0-1); LYMPHOCYTES PERCENT AUTO 6 % (21-46); MONOCYTES ABSOLUTE AUTO 0.56 K/mm3 (0.16-1.47); MONOCYTES PERCENT AUTO 6 % (4-13); Mean Corpuscular HGB 34.1 pg (26.0-34.0); Mean Corpuscular Volume 107 fL (80-100); NEUTROPHILS PERCENT AUTO 88 % (41-73); Platelet Count 66 K/mm3 (150-400); RDW Coefficient Variation 13.7 % (11.7-14.2); White Blood Cell Count 10.03 K/mm3 (4.00-11.30)
[2022-12-29 05:09] LABS: International Normalized Ratio 1.42; Prothrombin Time Results 14.6 Sec (9.7-11.5)
[2022-12-29 05:15] LABS: Bun/Creatinine Ratio 16.7 (12.0-20.0); Calcium, Blood 7.8 mg/dL (8.5-10.1); Creatinine, Blood 1.56 mg/dL (0.60-1.20); Magnesium, Blood 1.7 mg/dL (1.6-2.4); Potassium, Blood 4.1 mmol/L (3.5-5.5)
[2022-12-29 07:22] VITALS: BP 147/76
--- NOTE | 2022-12-29 10:47 | NUR ---
Attempted to see Pt. Pt currently ambulating in the [place]inson with therapy. Brief supportive conversation with son Prabhakar. Prabhakar agreeable for this RN to return at a later time. Spoke with Primary RN Magdalena and discussed case. Pt experiencing some intermittent confusion last night and earlier this AM. Concerns Pt may have some mild dementia. Palliative Care will F/U for advanced care planning.
--- NOTE | 2022-12-29 14:30 | NUR ---
Spoke with Primary RN Magdalena and discussed case. Pt experiencing some confusion, agitation, and implulsive at times. Plan to call hospitalist for PRN medication. Pt sitting in chair upon arrival. Listened as Pt discusses over and over regarding his wishes to get to SNF and states "I'm willing to pay for it today". Continued therapeutic listening. Pt's son Prabhakar at bedside. Engaged in therapeutic discussion regarding Pt's code status wishes. Educated on life sustaining treatments including risks and implications to CPR/Intubation. Pt and son confirms Pt's wishes are DNR. Pt immediately continues his conversation regarding wanting to get to SNF. Pt at times becomes mildly agitated. Provided gentle instruction regarding plan to get him there as soon as possible. Ended visit to allow Pt to rest. Spoke with Dr Villalpando and discussed case. Placed DNR order in [facility] per V/O from Dr Villalpando. Palliative Care will remain available
[2022-12-29 14:46] VITALS: BP 131/61
--- NOTE | 2022-12-29 14:54 | NUR ---
SHIFT SUMMARY: POD 1 RIGHT HIP PINNING PATIENT IS A&OX2-3 AND SEEMS TO BECOME MORE CONFUSED AT NIGHT. PATIENT HAS BED AND/OR CHAIR ALARM A PRECAUTION. PAIN IS MANAGED WITH PO TYLENOL AT THIS TIME MAINLY FOR HIS RIGHT SHOULDER. PATIENTS RIGHT SHOULDER IS A NONSURGICAL FX AND IS IN A SLING. HIS RIGHT HIP HAS AN AQUACEL DRESSING THAT IS C/D/I. PATIENT IS ABLE TO MOVE ALL FINGERS AND TOES WHEN ASKED. HE IS TOLERATING PO INTAKE AND IS VOIDING WITH URNAL HELP. HE IS A SBA WITH JESUS WALKER AND GAIT BELT. HE IS SITTING UP IN THE RECLINER WITH CHAIR ALARM ON AND CALL LIGHT WITHIN REACH. SON IS ALSO IN THE ROOM. PATIENT HAS HEPARIN GTT RUNNING THROUGH HIS LEFT FORARM IV. THE PLAN IS TO DISCHARGE TO A SNF WHEN AVAILABLE/STILL APPROPRIATE AND TO ALSO CONTINUE PAIN MANAGEMENT.
[2022-12-29 19:47] VITALS: BP 125/78
[2022-12-30 01:31] LABS: Anti-Xa UFH, PHA Monitoring 0.32 IU/mL; International Normalized Ratio 1.49; Prothrombin Time Results 15.3 Sec (9.7-11.5)
[2022-12-30 02:13] VITALS: BP 153/80
--- NOTE | 2022-12-30 05:42 | NUR ---
SHIFT SUMMARY NO ACUTE CHANGES TO REPORT OVERNIGHT. S/P RIGHT HIP REPAIR. PT IS FORGETFUL AND IMPULSIVE, JUMPS OUT OF CHAIR WITHOUT CALLING. PICKS AT TUBING AND IV. RIGHT SHOULDER IN SLING D/T FRACTURE, PT HAS BEEN COMPLIANT WITH SLING. DRESSING INTACT TO RIGHT HIP. HEPARIN GTT INFUSING. PT MEDICATED FOR PAIN PER EMAR. PT HAS BEEN PLESANT AND COOPERATIVE. BED IN LOWEST POSITION, CALL LIGHT WITHIN REACH.
[2022-12-30 07:12] VITALS: BP 132/68
[2022-12-30] MEDS ORDERED: COLACE100 MG PO (10:40)
[2022-12-30] MEDS ORDERED: OXYC5 PO (10:40)
[2022-12-30] MEDS ORDERED: TRAM50 PO (10:41)
[2022-12-30] MEDS ORDERED: BRUKINSA80 MG PO (10:42)
[2022-12-30 12:39] LABS: SARS-Cov-2 (COVID-19) PCR, MMC NEGATIVE (NEGATIVE)
[2022-12-30 13:58] VITALS: BP 130/98
--- NOTE | 2022-12-30 13:59 | NUR ---
DISCHARGE REPORT CALLED TO LULU AT [facility]. VSS AT TIME OF DISCHARGE. DISCHARGE PACKET SENT WITH PATIENT TO [facility]. COVID TEST NEGATIVE. CLEAN DRESSINGS SENT WITH PT TO [facility]. HOME MEDICATION RETURNED TO PT. PT LEFT AT 1356.
== END 2022-12-30 13:50 | disposition home or self-care (01) | DRG 480 ==
LOC: ER 13:43 → SURS 18:12 → MEDS 18:12 → SURS 12-28 16:08
PROVIDERS: Emergency Medicine; Internal Medicine; Nurse Practitioner Acute Care; Orthopaedic Surgery; ADMIT Hospitalist
PROC: 0SH934Z Insertion of Internal Fixation Device into Right Hip Joint, Percutaneous Approach (ICD-10-PCS; principal; 2022-12-28 14:00)
DX: S42.224A 2-part nondisplaced fracture of surgical neck of right humerus, initial encounter for closed fracture (principal); G92.8 Other toxic encephalopathy; S72.011A Unspecified intracapsular fracture of right femur, initial encounter for closed fracture; I13.0 Hypertensive heart and chronic kidney disease with heart failure and stage 1 through stage 4 chronic kidney disease, or unspecified chronic kidney disease; I50.22 Chronic systolic (congestive) heart failure; C85.90 Non-Hodgkin lymphoma, unspecified, unspecified site; N18.4 Chronic kidney disease, stage 4 (severe); W18.30XA Fall on same level, unspecified, initial encounter; Z20.822 Contact with and (suspected) exposure to COVID-19; E78.5 Hyperlipidemia, unspecified; I48.91 Unspecified atrial fibrillation; E11.22 Type 2 diabetes mellitus with diabetic chronic kidney disease; D69.6 Thrombocytopenia, unspecified; I49.5 Sick sinus syndrome; E11.649 Type 2 diabetes mellitus with hypoglycemia without coma; N40.0 Benign prostatic hyperplasia without lower urinary tract symptoms; Z95.2 Presence of prosthetic heart valve; Z86.73 Personal history of transient ischemic attack (TIA), and cerebral infarction without residual deficits; Z88.0 Allergy status to penicillin; Z79.01 Long term (current) use of anticoagulants; Z79.899 Other long term (current) drug therapy; Z88.8 Allergy status to other drugs, medicaments and biological substances; Z79.4 Long term (current) use of insulin; Z90.49 Acquired absence of other specified parts of digestive tract; Z90.5 Acquired absence of kidney; Z98.890 Other specified postprocedural states; Z95.0 Presence of cardiac pacemaker
CPT/HCPCS: 36415; 70450; 71045; 72192; 73030; 73070; 73502; 73600; 80048; 80053; 82947; 83735; 83880; 85025; 85520; 85610; 85730; 93005; 93010; 94762; 97116; 97162; 97166; 97530; 99285-25; A9270; C1713; C1769; J0690; J1100; J1644; J1815; J1885; J2250; J2405; J3010; J3475; J3480; J7030; J7042; J7120; U0002

== ENCOUNTER → 2023-02-02 07:39 | Emergency (ER) | payer OTHER ==
[~2023-02-02] VITALS: Ht 172.7 cm; Wt 108.4 kg
[~2023-02-02 07:39] MED LIST changes: +1/2 NS 250ml250 ML; +CALC.25 PO; +CEFP200 PO; +CLIN150 PO; +COLACE100 MG PO; +OXYC5 PO; +TRAM50 PO; +WARF2.5 PO
[2023-02-02 10:38] LABS: Source, Urine Clean Catch
[2023-02-02 10:41] LABS: Appearance, Urine Clear (Clear); Bilirubin, Urine Neg (Neg); Blood, Urine 2+ (Neg); Color, Urine Yellow (P-Yellow); Glucose Qualitative, Urine 4+ (Neg); Ketones, Urine Neg (Neg); Leukocyte Esterase, Urine 1+ (Neg); Nitrite, Urine Neg (Neg); Protein, Urine 2+ (Neg); Specific Gravity, Urine 1.015 (1.003-1.022); Urobilinogen, Urine NORM (Normal)
[2023-02-02 10:55] LABS: Bacteria Few /hpf; Squamous Epithelial Cells Rare /hpf (Few)
[2023-02-02 11:35] VITALS: BP 147/97
== END | disposition home or self-care (01) ==
LOC: ER 07:39
PROVIDERS: Physician Assistant
DX: N39.0 Urinary tract infection, site not specified (principal); M25.552 Pain in left hip; M25.551 Pain in right hip; M25.512 Pain in left shoulder; M25.511 Pain in right shoulder; E11.9 Type 2 diabetes mellitus without complications; I10 Essential (primary) hypertension; I48.91 Unspecified atrial fibrillation; E78.5 Hyperlipidemia, unspecified; Z88.0 Allergy status to penicillin; Z88.8 Allergy status to other drugs, medicaments and biological substances; Z79.01 Long term (current) use of anticoagulants; Z79.4 Long term (current) use of insulin; Z79.899 Other long term (current) drug therapy; W18.30XA Fall on same level, unspecified, initial encounter
CPT/HCPCS: 70450; 72125; 73030; 73522; 81001; 87086; 99284-25; A9270; J3010

== ENCOUNTER 2023-02-18 17:27 | Inpatient (IN) | payer OTHER ==
[~2023-02-18] VITALS: Ht 167.6 cm; Wt 77.4 kg
[2023-02-18 17:59] LABS: Source, Urine Voided
[2023-02-18 18:01] LABS: BASOPHILS ABSOLUTE AUTO 0.03 K/mm3 (0.00-0.23); BASOPHILS PERCENT AUTO 0 % (0-2); EOSINOPHILS PERCENT AUTO 3 % (0-6); Hematocrit 26.1 % (37.0-53.0); Hemoglobin 8.2 g/dL (13.5-17.5); IMMATURE GRAN ABSOLUTE AUTO 0.02 K/mm3 (0.00-0.10); IMMATURE GRAN PERCENT AUTO 0 % (0-1); LYMPHOCYTES ABSOLUTE AUTO 1.12 K/mm3 (0.84-5.20); LYMPHOCYTES PERCENT AUTO 14 % (21-46); MONOCYTES ABSOLUTE AUTO 0.62 K/mm3 (0.16-1.47); MONOCYTES PERCENT AUTO 8 % (4-13); Mean Corpuscular HGB Conc 31.4 g/dL (31.5-36.5); Mean Corpuscular Volume 108 fL (80-100); NEUTROPHILS PERCENT AUTO 74 % (41-73); RDW Coefficient Variation 14.7 % (11.7-14.2); RDW Standard Deviation 57.9 fL (35.1-46.3); Red Blood Cell Count 2.41 M/mm3 (4.30-5.90); White Blood Cell Count 7.79 K/mm3 (4.00-11.30)
[2023-02-18 18:13] LABS: Platelet Count 49 K/mm3 (150-400)
[2023-02-18 18:17] LABS: Albumin, Blood 2.1 g/dL (3.4-5.0); Albumin/Globulin Ratio 0.8 (0.8-1.8); Bilirubin, Total 0.6 mg/dL (0.1-1.0); Bun/Creatinine Ratio 19.7 (12.0-20.0); Calcium, Blood 8.1 mg/dL (8.5-10.1); Creatinine, Blood 2.18 mg/dL (0.60-1.20); Globulin, Blood 2.5 g/dL (2.2-4.0); Potassium, Blood 3.3 mmol/L (3.5-5.5); Total Protein, Blood 4.6 g/dL (6.4-8.2)
[2023-02-18 18:37] LABS: Appearance, Urine Hazy (Clear); Bilirubin, Urine Neg (Neg); Blood, Urine Neg (Neg); Color, Urine Yellow (P-Yellow); Glucose Qualitative, Urine 1+ (Neg); Ketones, Urine Neg (Neg); Leukocyte Esterase, Urine Neg (Neg); Nitrite, Urine Neg (Neg); Protein, Urine 2+ (Neg); Urobilinogen, Urine NORM (Normal)
[2023-02-18 19:14] LABS: Bacteria Few /hpf; Red Blood Cells, Urine 0-2 /hpf (0-2); Squamous Epithelial Cells Few /hpf (Few); Yeast/Fungi Urine Many /hpf
[2023-02-18 23:57] LABS: Magnesium, Blood 1.4 mg/dL (1.6-2.4)
[2023-02-19] VITALS (7 sets, daily range): BP systolic 88–126; BP diastolic 40–98
[2023-02-19 02:14] LABS: BASOPHILS ABSOLUTE AUTO 0.04 K/mm3 (0.00-0.23); BASOPHILS PERCENT AUTO 1 % (0-2); EOSINOPHILS ABSOLUTE AUTO 0.19 K/mm3 (0.00-0.68); EOSINOPHILS PERCENT AUTO 2 % (0-6); Hemoglobin 7.7 g/dL (13.5-17.5); IMMATURE GRAN ABSOLUTE AUTO 0.03 K/mm3 (0.00-0.10); IMMATURE GRAN PERCENT AUTO 0 % (0-1); LYMPHOCYTES ABSOLUTE AUTO 1.81 K/mm3 (0.84-5.20); LYMPHOCYTES PERCENT AUTO 22 % (21-46); MONOCYTES ABSOLUTE AUTO 0.83 K/mm3 (0.16-1.47); MONOCYTES PERCENT AUTO 10 % (4-13); Mean Corpuscular HGB 34.5 pg (26.0-34.0); Mean Corpuscular HGB Conc 32.1 g/dL (31.5-36.5); Mean Corpuscular Volume 108 fL (80-100); NEUTROPHILS ABSOLUTE AUTO 5.36 K/mm3 (1.96-9.15); NEUTROPHILS PERCENT AUTO 65 % (41-73); RDW Coefficient Variation 14.6 % (11.7-14.2); RDW Standard Deviation 57.1 fL (35.1-46.3); Red Blood Cell Count 2.23 M/mm3 (4.30-5.90); White Blood Cell Count 8.26 K/mm3 (4.00-11.30)
[2023-02-19 02:23] LABS: Mean Platelet Volume 15.8 fL (9.1-12.4); Platelet Count 44 K/mm3 (150-400)
[2023-02-19 02:34] LABS: Albumin, Blood 2.6 g/dL (3.4-5.0); Bilirubin, Total 0.9 mg/dL (0.1-1.0); Bun/Creatinine Ratio 18.6 (12.0-20.0); Calcium, Blood 8.3 mg/dL (8.5-10.1); Creatinine, Blood 2.21 mg/dL (0.60-1.20); Globulin, Blood 2.5 g/dL (2.2-4.0); Potassium, Blood 3.3 mmol/L (3.5-5.5); Total Protein, Blood 5.1 g/dL (6.4-8.2)
[2023-02-19 02:35] LABS: Prothrombin Time Results 60.8 Sec (9.7-11.5)
[2023-02-19 02:37] LABS: International Normalized Ratio 6.43
--- NOTE | 2023-02-19 04:33 | NUR ---
SHIFT SUMMARY/ADMISSION NOTE PATIENT ARRIVED TO UNIT FROM ED AT 00:42. A/O 2-3, BRIGHT AFFECT, MILD EXPRESSIVE APHASIA, WORD SEARCHING. DOES APPEAR TO CLEARLY UNDERSTAND WHAT IS BEING SAID TO HIM, BUT SOME DIFFICULTY ARTICULATING RESPONCE. FOLLOWS DIRECTIONS WELL. STATES HE IS IN [place], "AT THAT PLACE WHERE THEY TAKE CARE OF YOU UPSTAIRS." PT STATES FELL 3 TIMES AT HOME AND HIT HEAD ONCE. STATES HE HAD RIGHT HIP REPAIRED LAST , STILL PAINFULL WITH MOVEMENT. UNABLE TO STAND, INCREASED BLE WEAKNESS, GOOD UPPER BODY STRENGTH. ON TELE, AFIB/AFLUTTER 80s, WITH ST ELEVATION. NO ACUTE CHANGES NOTED OVERNIGHT. BED LOCKED AND IN LOWEST POSITION, CALL LIGHT WITHIN REACH.
--- NOTE | 2023-02-19 08:23 | NUR ---
NOC SHIFT NOTE AT 0500 PATIENT AWOKE, REQUESTING HELP TO GET UP TO THE BATHROOM. PER AID, PATIENT C/O SEVER PAIN TO RLE, AGREED TO BED WADE. PATIENT DID NOT TOLERATE ANY MOVEMENT TO RLE. PROVIDER NOTIFIED AND RECEIVED NEW ORDER FOR PRN IV FENT, TOLERATED WELL, PATIENT STATED RELIEF. AT ABOUT 06:15, PATIENT WAS NOTED TO BE INCREASINGLY CONFUSED AND IRRITABLE, INSTRUCTED AID TO CHECK BG. PROVIDER NOTIFIED OF CRITICAL LOW BG OF 18, RECEIVED NEW ORDERS TO GIVE GLUCAGON AND 1 AMP OF D50. UPON RECHECKING JT=652. PATIENT ALERT, CALM, PLEASANT AND COOPERATIVE, SITTING UP IN BED IN NO ACUTE DISTRESS. REPORT GIVEN TO ONCOMMING SHIFT.
--- NOTE | 2023-02-19 11:33 | NUR ---
CALLED DR BANSAL- WHILE ASSISTING THE PT ONTO THE BEDPAN HE WAS SCREAMING IN PAIN. HE WAS TRYING TO HELP STAFF BUT AT THE SAME TIME HE WAS JERKING AND RESISTING THE MOVEMENT R/T PAIN. THERE WAS A MILKY DISCHARGE FROM THE PT FORESKIN, WHEN STAFF ATTEMPTED TO RETRACT THE FORESKIN THE PT SCREAMED IN PAIN. HE STATED "IT HURTS SO BAD! IT CASH!" PT VOIDED IN THE BED WADE A SMALL AMOUNT, BUT WAS UNABLE TO VOID ANY MORE. BLADDER SCAN SHOWS 289ML. MICHAEL BOTTLE USED TO FLUSH THE GROIN AND PENIS, PT SCREAMED THAT THE WATER HURTS AND SMALL WHITE FLECKS WERE NOTED AFTER THE FLUSH. CALLED . RECIEVED ORDER FOR CLEAN CATCH UA. AFTER SPEAKING TO PHYSICAL THERAPY, THE PT HAS NOT BEEN ABLE TO AMBULATE SINCE A FALL ON 03-05. HE HAD AN XRAY AT THAT TIME THAT SUGESTED A POSSIBLE NEED FOR CT SCAN. MD WILL REVIEW, GIVEN INCREASED PAIN AND DIFFICULTY MOVING IN BED.
[2023-02-19 11:53] LABS: Source, Urine Clean Catch
[2023-02-19 11:59] LABS: Appearance, Urine Clear (Clear); Bilirubin, Urine Neg (Neg); Blood, Urine 1+ (Neg); Color, Urine Yellow (P-Yellow); Glucose Qualitative, Urine 3+ (Neg); Ketones, Urine Neg (Neg); Leukocyte Esterase, Urine 1+ (Neg); Nitrite, Urine Neg (Neg); Protein, Urine 3+ (Neg); Specific Gravity, Urine 1.015 (1.003-1.022); Urobilinogen, Urine NORM (Normal)
[2023-02-19 12:11] LABS: Bacteria Rare /hpf; Hyaline Casts 0-2 /lpf (0-2); Squamous Epithelial Cells Rare /hpf (Few)
[2023-02-19 12:12] LABS: Yeast/Fungi Urine Rare /hpf
[2023-02-19 12:13] LABS: Uric Acid Crystals Rare /hpf
--- NOTE | 2023-02-19 12:59 | NUR ---
PT FAMILY UPDATED STAFF ON THE PT MED Hx- PT HAS HAD A KIDNEY REMOVED WELL HIS GALLBLADDER. 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 PT HAS A LARGE AMOUNT OF SCROTAL PAIN CURRENTLY AND A HEALING WOUND IN THAT SPOT. MD AWARE OF RECENT Hx WILL PUT PT IN ISO FOR MRSA Hx.
--- NOTE | 2023-02-19 19:39 | NUR ---
SHIFT SUMMARY- PT HAS HAD SEVERAL TESTS DONE TODAY. CT HEAD AND CT LEFT LEG. LEG CT SHOWED A Fx. MD NOTIFIED AND NEW ORDER WAS RECIEVED FOR ORTHO CONSULT. INR WAS CRITICAL HIGH, MD ORDERED VITAMIN K IV THIS EVENING, D/T THE NEED FOR SURGERY, TO TRY TO NORMALIZE THE INR. DR THIBODEAUX (ORTHO) CAME TO SEE THE PT THIS EVENING AND THEY WILL PLAN FOR SURGERY ONCE THE PT INR IS REDUCED TO A MORE NORMAL RANGE. PT HAD A CRITICAL BG THIS AM PRIOR TO THIS RN ASSUMING CARE. CAUTION WAS TAKEN TO ENSURE PT BG DID NOT DROP LOW AGAIN. PT HAD SOME DINNER THIS EVENING, BUT DID NOT HAVE MUCH APPETITE. HE WAS PROVIDED WITH JUICE APPLE AND CRANBERRY WITH SUGAR ADDED, WHEN HIS BLOOD SUGAR WAS 100, D5 IVF HAD TO BE STOPPED TO RUN THE IV VANCO. PG PLACED DURING THAT TIME AND D5 WAS RESUMED, THEN THE PT ATE WHAT HE WOULD OF HIS DINNER, BG WAS 156. BEDSIDE REPORT COMPLETED WITH NIGHT RN. PT IN BED, CALL LIGHT IN REACH, NEW MEPILEX IN PLACE ON THE COCCYX AREA IS OPEN AND EXCORIATED, PHOTO DOCUMENTATION NOT DONE AT THIS TIME. PASSED ON TO NIGHT RN IN REPORT. PT MEDICATED WITH TYLENOL, HE STATES IT HAD GOOD EFFECT. NO CURRENT S&S OF DISTRESS NOTED AT THE TIME OF REPORT. PER THE PT SON HE HAD A SCROTAL ABCESS THAT WAS DRAINED (LEFT SIDE) WHILE HE WAS AT [facility] THAT TESTED POSSITIVE FOR MRSA. PT PLACED IN ISOLATION FOR MRSA PER DR BANSAL, PRESENT FOR THIS CONVERSATION.
[2023-02-20] VITALS (20 sets, daily range): BP systolic 90–129; BP diastolic 35–94
--- NOTE | 2023-02-20 05:49 | NUR ---
SHIFT SUMMARY PATIENT A/Ox2-3, CONTINUES TO HAVE ODD SPEECH AT TIMES, MILD EXPRESSIVE APHASIA, PLEASANTLY CONFUSED. CALM, COOPERATIVE. NO C/O PAIN AT TIME OF ASSESSMENT, STATES ONLY WHEN MOVING RLE. BLOOD GLUCOSE STABLE OVERNIGHT, NO S/Sx OF HYPOGLYCEMIA, NO CHANGES IN LOC. NO TELE EVENTS, AFIB/AFLUTTER, VENT PACED IN 80s. NO ACUTE CHANGES NOTED OVERNIGHT. BED LOCKED, BED ALARM ON FOR SAFETY, CALL LIGHT WITHIN REACH.
[2023-02-20 07:43] LABS: BASOPHILS ABSOLUTE AUTO 0.06 K/mm3 (0.00-0.23); BASOPHILS PERCENT AUTO 1 % (0-2); EOSINOPHILS ABSOLUTE AUTO 0.33 K/mm3 (0.00-0.68); EOSINOPHILS PERCENT AUTO 4 % (0-6); Hematocrit 19.9 % (37.0-53.0); Hemoglobin 6.3 g/dL (13.5-17.5); IMMATURE GRAN ABSOLUTE AUTO 0.02 K/mm3 (0.00-0.10); IMMATURE GRAN PERCENT AUTO 0 % (0-1); LYMPHOCYTES ABSOLUTE AUTO 1.48 K/mm3 (0.84-5.20); LYMPHOCYTES PERCENT AUTO 20 % (21-46); MONOCYTES ABSOLUTE AUTO 0.62 K/mm3 (0.16-1.47); MONOCYTES PERCENT AUTO 8 % (4-13); Mean Corpuscular HGB 34.1 pg (26.0-34.0); Mean Corpuscular HGB Conc 31.7 g/dL (31.5-36.5); Mean Corpuscular Volume 108 fL (80-100); NEUTROPHILS ABSOLUTE AUTO 4.95 K/mm3 (1.96-9.15); NEUTROPHILS PERCENT AUTO 66 % (41-73); RDW Coefficient Variation 15.2 % (11.7-14.2); RDW Standard Deviation 58.6 fL (35.1-46.3); Red Blood Cell Count 1.85 M/mm3 (4.30-5.90); White Blood Cell Count 7.46 K/mm3 (4.00-11.30)
[2023-02-20 07:49] LABS: Platelet Count 37 K/mm3 (150-400)
[2023-02-20 08:13] LABS: Alanine Aminotransfer (ALT/SGP 14 U/L (12-78); Albumin, Blood 2.1 g/dL (3.4-5.0); Albumin/Globulin Ratio 0.9 (0.8-1.8); Alk Phos 144 U/L (50-136); Anion Gap 4 mmol/L (6-16); Aspartate Aminotrans (AST/SGOT 17 U/L (12-37); Bilirubin, Total 0.9 mg/dL (0.1-1.0); Blood Urea Nitrogen 35 mg/dL (8-24); Bun/Creatinine Ratio 18.5 (12.0-20.0); CO2, Blood 29 mmol/L (21-32); Calcium, Blood 8.2 mg/dL (8.5-10.1); Chloride, Blood 108 mmol/L (98-108); Creatinine, Blood 1.89 mg/dL (0.60-1.20); Globulin, Blood 2.3 g/dL (2.2-4.0); Glomerular Filtration Rate 34 (60-); Glucose, Blood 154 mg/dL (70-99); Potassium, Blood 3.5 mmol/L (3.5-5.5); Sodium, Blood 141 mmol/L (136-145); Total Protein, Blood 4.4 g/dL (6.4-8.2); Vancomycin, Random 12.9 ug/mL
[2023-02-20 08:28] LABS: International Normalized Ratio 1.51; Prothrombin Time Results 15.5 Sec (9.7-11.5)
--- NOTE | 2023-02-20 15:17 | NUR ---
1340 LATE ENTRY. PT HERE FROM MEDICAL FLOOR IN BED FOR LEFT HIP JESUS ARTHROPLASTY. Pre-Op teaching done. Pt verbalizes understanding. History, Chart, Medications and Allergies reviewed before start of procedure.Patient confirms NPO status and agrees with scheduled surgery. PT HAS 1 UNIT PRBC INFUSING
--- NOTE | 2023-02-20 15:41 | NUR ---
02/20/23 1541 Shawna Sharp [address] IVPB 1524.
--- NOTE | 2023-02-20 18:25 | NUR ---
SHIFT SUMMARY PATIENT TAKEN TO SURGERY AT 1400. 1 UNIT OF BLOOD GIVEN BEFORE SURGERY, 1 UNIT GIVEN IN SURGERY BY FAILURE ANALYSIS TECHNICIAN. ONE UNIT OF PLT GIVEN IN OR WELL. PATIENT A&O X3. PATIENT ON BEDREST BEFORE SURGERY. PATIENT HAD BEEN NPO FOR SURGERY TODAY. PATIENT ASSIGNED TO ROOM 229, REPORT GIVEN TO SURGICAL NURSE, SHARON. PATIENT BELONGINGS BROUGHT TO PATIENT NEW ROOM.
--- NOTE | 2023-02-20 19:20 | NUR ---
PT ARRIVED TO UNIT FROM PACU NOTIFIED TELE OF PT'S ARRIVAL TO ROOM 229. CALL LIGHT IN REACH. NOTIFIED LAB PT HAS ARRIVED TO ROOM. GAVE REPORT TO ONCOMING RNMAKENNA.
[2023-02-20 20:26] LABS: Hematocrit 23.9 % (37.0-53.0); Hemoglobin 7.8 g/dL (13.5-17.5)
--- NOTE | 2023-02-20 20:34 | NUR ---
PRBC: CLARIFIED W/BLOOD BANK THAT SECOND UNIT OF PRBC WAS NOT GIVEN. BLOOD BANK REPORTED BLOOD RETURNED AFTER 4 HRS. REPEAT H/H 7.8, 23.9. CALL PLACED TO HOSPITALIST TO CLARIFY NEED FOR SECOND UNIT. PER HOSPITALIST GERONIMO Nye DO NOT GIVE SECOND UNIT OF PRBC. ALSO DISCUSSED ORDER FOR MRSA CX OF NARES PT REC ABX >24 HRS AGO. ORDER TO NOT COLLECT AT THIS TIME R/T ABX ALREADY GIVEN.
[2023-02-21] VITALS (21 sets, daily range): BP systolic 80–132; BP diastolic 23–91
[2023-02-21 01:00] LABS: Hematocrit 20.4 % (37.0-53.0); Hemoglobin 6.6 g/dL (13.5-17.5)
--- NOTE | 2023-02-21 06:26 | NUR ---
SHIFT SUMMARY PT IS POD#1 FOR A LEFT HIP HEMIARTHROPLASTY. AQUACEL DRESSING IS C/D/I. PT IS ON [employer], RUNNING IN THE 70'S-90'S. PT HAS A PACEMAKER, BUT IT WAS NOT ACTIVE THIS SHIFT. PT'S BP HAS BEEN SOFT THIS ENTIRE SHIFT, CONSULTED AND A 250 ML BOLUS WAS ORDERED. PT'S REPEAT H&H AT 00:16 WAS 6.6/20.4 RESPECTIVELY. MD ORDERED 1 UNIT OF PRBC'S WELL 10 MG OF MIDODRINE. PT'S BP STAYED LOW THROUGHOUT THE SHIFT, DESPITE THE IVF BOLUS AND THE BLOOD TRANSFUSION. PT STATES HE FEELS FINE AND BESIDES THE LOW BP, HIS VITAL SIGNS HAVE BEEN STABLE. PT'S PULSES HAVE BEEN WEAK AND THREADY AFTER MIDNIGHT. REPEAT H&H TO BE DRAWN AT 0730 THIS AM. BED IS IN LOWEST POSITION, CALL LIGHT IS WITHIN REACH.
[2023-02-21 08:01] LABS: BASOPHILS ABSOLUTE AUTO 0.04 K/mm3 (0.00-0.23); BASOPHILS PERCENT AUTO 0 % (0-2); EOSINOPHILS ABSOLUTE AUTO 0.14 K/mm3 (0.00-0.68); EOSINOPHILS PERCENT AUTO 2 % (0-6); Hematocrit 22.7 % (37.0-53.0); Hemoglobin 7.4 g/dL (13.5-17.5); IMMATURE GRAN ABSOLUTE AUTO 0.04 K/mm3 (0.00-0.10); IMMATURE GRAN PERCENT AUTO 0 % (0-1); LYMPHOCYTES ABSOLUTE AUTO 0.85 K/mm3 (0.84-5.20); LYMPHOCYTES PERCENT AUTO 9 % (21-46); MONOCYTES ABSOLUTE AUTO 0.66 K/mm3 (0.16-1.47); MONOCYTES PERCENT AUTO 7 % (4-13); Mean Corpuscular HGB 32.5 pg (26.0-34.0); Mean Corpuscular HGB Conc 32.6 g/dL (31.5-36.5); NEUTROPHILS PERCENT AUTO 82 % (41-73); RDW Coefficient Variation 20.9 % (11.7-14.2); RDW Standard Deviation 74.8 fL (35.1-46.3); Red Blood Cell Count 2.28 M/mm3 (4.30-5.90); White Blood Cell Count 9.33 K/mm3 (4.00-11.30)
[2023-02-21 08:16] LABS: International Normalized Ratio 1.27; Prothrombin Time Results 13.2 Sec (9.7-11.5)
[2023-02-21 08:32] LABS: Anion Gap 5 mmol/L (6-16); Blood Urea Nitrogen 37 mg/dL (8-24); Bun/Creatinine Ratio 19.3 (12.0-20.0); CO2, Blood 28 mmol/L (21-32); Calcium, Blood 8.1 mg/dL (8.5-10.1); Chloride, Blood 108 mmol/L (98-108); Creatinine, Blood 1.92 mg/dL (0.60-1.20); Glomerular Filtration Rate 34 (60-); Glucose, Blood 191 mg/dL (70-99); Mean Corpuscular Volume 100 fL (80-100); Potassium, Blood 3.7 mmol/L (3.5-5.5); Sodium, Blood 141 mmol/L (136-145); Vancomycin, Random 17.7 ug/mL
[2023-02-21 08:33] LABS: Platelet Count 36 K/mm3 (150-400)
--- NOTE | 2023-02-21 17:29 | NUR ---
SUMMARY: PT IS POD1 L HIP HEMIARTHROPLASY. PT ALERT, CONFUSED AT TIMES BUT EASILY REORIENTED. SURGICAL SITE WNL, NO BLEED NOTED. TELE STABLE TODAY. 1 UNIT PLATLET AND PRBC'S INFUSED TODAY. PT TOLERATED WELL.
[2023-02-22] VITALS (8 sets, daily range): BP systolic 104–148; BP diastolic 47–77
[2023-02-22 06:35] LABS: BASOPHILS ABSOLUTE AUTO 0.04 K/mm3 (0.00-0.23); BASOPHILS PERCENT AUTO 0 % (0-2); EOSINOPHILS ABSOLUTE AUTO 0.21 K/mm3 (0.00-0.68); EOSINOPHILS PERCENT AUTO 2 % (0-6); Hematocrit 24.7 % (37.0-53.0); Hemoglobin 8.3 g/dL (13.5-17.5); IMMATURE GRAN ABSOLUTE AUTO 0.05 K/mm3 (0.00-0.10); IMMATURE GRAN PERCENT AUTO 1 % (0-1); LYMPHOCYTES ABSOLUTE AUTO 0.87 K/mm3 (0.84-5.20); LYMPHOCYTES PERCENT AUTO 8 % (21-46); MONOCYTES ABSOLUTE AUTO 0.88 K/mm3 (0.16-1.47); MONOCYTES PERCENT AUTO 8 % (4-13); Mean Corpuscular HGB 33.5 pg (26.0-34.0); Mean Corpuscular HGB Conc 33.6 g/dL (31.5-36.5); Mean Corpuscular Volume 100 fL (80-100); NEUTROPHILS ABSOLUTE AUTO 8.71 K/mm3 (1.96-9.15); NEUTROPHILS PERCENT AUTO 81 % (41-73); Platelet Count 52 K/mm3 (150-400); RDW Coefficient Variation 19.9 % (11.7-14.2); RDW Standard Deviation 70.8 fL (35.1-46.3); Red Blood Cell Count 2.48 M/mm3 (4.30-5.90); White Blood Cell Count 10.76 K/mm3 (4.00-11.30)
[2023-02-22 06:49] LABS: International Normalized Ratio 1.19; Prothrombin Time Results 12.4 Sec (9.7-11.5)
[2023-02-22 06:55] LABS: Alanine Aminotransfer (ALT/SGP 11 U/L (12-78); Albumin, Blood 2.1 g/dL (3.4-5.0); Albumin/Globulin Ratio 0.8 (0.8-1.8); Alk Phos 143 U/L (50-136); Anion Gap 7 mmol/L (6-16); Aspartate Aminotrans (AST/SGOT 20 U/L (12-37); Bilirubin, Total 0.9 mg/dL (0.1-1.0); Blood Urea Nitrogen 39 mg/dL (8-24); Bun/Creatinine Ratio 19.8 (12.0-20.0); CO2, Blood 27 mmol/L (21-32); Calcium, Blood 8.4 mg/dL (8.5-10.1); Chloride, Blood 107 mmol/L (98-108); Creatinine, Blood 1.97 mg/dL (0.60-1.20); Globulin, Blood 2.5 g/dL (2.2-4.0); Glomerular Filtration Rate 33 (60-); Glucose, Blood 200 mg/dL (70-99); Potassium, Blood 3.6 mmol/L (3.5-5.5); Sodium, Blood 141 mmol/L (136-145); Total Protein, Blood 4.6 g/dL (6.4-8.2); Vancomycin, Random 19.5 ug/mL
--- NOTE | 2023-02-22 07:33 | NUR ---
SHIFT SUMMARY PT IS POD#2 FOR A LEFT HIP HEMIARTHROPLASTY. PT HAD NO ACUTE EVENTS OVERNIGHT AND RESTED FOR THE MAJORITY OF THE SHIFT. PT CALLED APPROPRIATELY WHEN HE NEEDED TO USE THE URINAL AND HIS VITAL SIGNS WERE STABLE. BED IS IN LOWEST POSITION, CALL LIGHT IS WITHIN REACH.
--- NOTE | 2023-02-22 18:03 | NUR ---
SHIFT SUMMARY AOX3, FORGETFUL OF EVENTS AND SITUATION. POD2 LEFT HIP FX. NOTED SWELLING AND BRUISING TO RIGHT HIP AREA. BRUISING BILA UPPER ARMS. MEPILEX TO R WRIST AND COCCYX. SCROTAL SWELLING IMPROVED. BARRIER CREAM IS APPLIED. NEEDS ASSISTANCE WITH URINAL. VOIDING T/O DAY. WORKED WITH OT AND WAS UP TO CHAIR FOR A FEW HOURS. REPEAT X-RAY AND WEIGHT BEARING STATUS TO RUE. PT TO WORK WITH PATIENT ON AMBULATING IN AM. REPOSSIONING T/O DAY TO AVOID BREAK DOWN. LEFT HIP AQUACEL IN PLACE C/D/I. BED ALARM IS ON FOR SAFETY. CALLS APPROPRIATELY.
[2023-02-23 03:22] VITALS: BP 136/48
--- NOTE | 2023-02-23 04:47 | NUR ---
SHIFT SUMMARY POD 3 L HIP PINNING AQUACEL TO L HIP IN PLACE, C/D/I. PAIN MANAGED PER EMAR. PT REPOSITIONED PER REQUEST. VSS. SLEPT T/O NIGHT. TOLERATING PO INTAKE, VOIDING. NO OTHER CONCERNS AT THIS TIME. CALL LIGHT WITHIN REACH
[2023-02-23 04:52] LABS: BASOPHILS ABSOLUTE AUTO 0.03 K/mm3 (0.00-0.23); BASOPHILS PERCENT AUTO 0 % (0-2); EOSINOPHILS ABSOLUTE AUTO 0.24 K/mm3 (0.00-0.68); EOSINOPHILS PERCENT AUTO 3 % (0-6); Hemoglobin 7.9 g/dL (13.5-17.5); IMMATURE GRAN ABSOLUTE AUTO 0.05 K/mm3 (0.00-0.10); IMMATURE GRAN PERCENT AUTO 1 % (0-1); LYMPHOCYTES ABSOLUTE AUTO 0.85 K/mm3 (0.84-5.20); LYMPHOCYTES PERCENT AUTO 10 % (21-46); MONOCYTES ABSOLUTE AUTO 0.69 K/mm3 (0.16-1.47); MONOCYTES PERCENT AUTO 8 % (4-13); Mean Corpuscular HGB 33.2 pg (26.0-34.0); Mean Corpuscular HGB Conc 32.9 g/dL (31.5-36.5); Mean Corpuscular Volume 101 fL (80-100); NEUTROPHILS ABSOLUTE AUTO 6.76 K/mm3 (1.96-9.15); NEUTROPHILS PERCENT AUTO 78 % (41-73); RDW Coefficient Variation 19.2 % (11.7-14.2); Red Blood Cell Count 2.38 M/mm3 (4.30-5.90); White Blood Cell Count 8.62 K/mm3 (4.00-11.30)
[2023-02-23 05:08] LABS: Alanine Aminotransfer (ALT/SGP 7 U/L (12-78); Albumin, Blood 1.9 g/dL (3.4-5.0); Albumin/Globulin Ratio 0.7 (0.8-1.8); Alk Phos 139 U/L (50-136); Anion Gap 5 mmol/L (6-16); Aspartate Aminotrans (AST/SGOT 15 U/L (12-37); Bilirubin, Total 0.7 mg/dL (0.1-1.0); Blood Urea Nitrogen 37 mg/dL (8-24); Bun/Creatinine Ratio 19.5 (12.0-20.0); CO2, Blood 29 mmol/L (21-32); Calcium, Blood 8.2 mg/dL (8.5-10.1); Chloride, Blood 109 mmol/L (98-108); Globulin, Blood 2.6 g/dL (2.2-4.0); Glomerular Filtration Rate 34 (60-); Glucose, Blood 200 mg/dL (70-99); Magnesium, Blood 2.2 mg/dL (1.6-2.4); Potassium, Blood 3.3 mmol/L (3.5-5.5); Sodium, Blood 143 mmol/L (136-145); Total Protein, Blood 4.5 g/dL (6.4-8.2); Vancomycin, Random 16.1 ug/mL
[2023-02-23 05:13] LABS: International Normalized Ratio 1.19; Prothrombin Time Results 12.4 Sec (9.7-11.5)
[2023-02-23 05:21] LABS: Platelet Count 50 K/mm3 (150-400)
[2023-02-23 07:23] VITALS: BP 128/70
[2023-02-23 15:28] VITALS: BP 107/43
--- NOTE | 2023-02-23 18:27 | NUR ---
SHIFT SUMMARY PATIENT IS AOX3. FORGETFUL ABOUT SITUATION AND HISTORY. PARTICIPATES IN PT, 2 PPS GB, FWW TO GET UP TO CHAIR. TOLERATING PO INTAKE, ENCOURAGING LIQUIDS. L HIP HAS AQUACEL THAT IS C/D/I. PAIN MANAGED WITH PO NORCO TOLERATING WELL. VOIDING WITH ASSISTANCE. PASSING FLATUS. AWAITING DISCHARE PLANNING. CALL LIGHT IS IN REACH CHAIR ALAM IS ON.
[2023-02-23 19:55] VITALS: BP 103/42
[2023-02-23 22:24] VITALS: BP 124/45
[2023-02-24 03:06] VITALS: BP 128/59
--- NOTE | 2023-02-24 04:22 | NUR ---
SHIFT SUMMARY PT HAS RESTED OFF AND ON T/O THE NIGHT. PT REPORTS INTERMITTENT PAIN MEDICATED PER EMAR. DRESSING INTACT TO LEFT HIP. PT REMAINS EDEMATOUS T/O. PT HAS HAD SOME SOFT BP'S THIS SHIFT AND PT BRADYCARDIC AT TIMES, BP MEDS HELD. PT A/OX3 BUT IS FORGETFUL AND HAS DIFFICULTY FINDING HIS WORDS AT TIMES. PT COCCYX/BUTTOCK RED AND EXCORIATED WITH OPEN SORES. PT STATES HIS COCCYX/BUTTOCK HAS BEEN THAT WAY A WHILE. BARRIER CREAM APPLIED, PICTURES TAKEN. VITALS STABLE, BED IN LOWEST POSITION, CALL LIGHT WITHIN REACH.
[2023-02-24 05:58] LABS: BASOPHILS ABSOLUTE AUTO 0.03 K/mm3 (0.00-0.23); BASOPHILS PERCENT AUTO 0 % (0-2); EOSINOPHILS ABSOLUTE AUTO 0.26 K/mm3 (0.00-0.68); EOSINOPHILS PERCENT AUTO 3 % (0-6); Hematocrit 25.8 % (37.0-53.0); Hemoglobin 8.4 g/dL (13.5-17.5); IMMATURE GRAN ABSOLUTE AUTO 0.05 K/mm3 (0.00-0.10); IMMATURE GRAN PERCENT AUTO 1 % (0-1); LYMPHOCYTES ABSOLUTE AUTO 0.63 K/mm3 (0.84-5.20); LYMPHOCYTES PERCENT AUTO 7 % (21-46); MONOCYTES ABSOLUTE AUTO 0.75 K/mm3 (0.16-1.47); MONOCYTES PERCENT AUTO 8 % (4-13); Mean Corpuscular HGB 33.2 pg (26.0-34.0); Mean Corpuscular HGB Conc 32.6 g/dL (31.5-36.5); Mean Corpuscular Volume 102 fL (80-100); NEUTROPHILS ABSOLUTE AUTO 7.35 K/mm3 (1.96-9.15); NEUTROPHILS PERCENT AUTO 81 % (41-73); Platelet Count 57 K/mm3 (150-400); RDW Coefficient Variation 18.6 % (11.7-14.2); RDW Standard Deviation 66.8 fL (35.1-46.3); Red Blood Cell Count 2.53 M/mm3 (4.30-5.90); White Blood Cell Count 9.07 K/mm3 (4.00-11.30)
[2023-02-24 06:01] LABS: Mean Platelet Volume 14.2 fL (9.1-12.4)
[2023-02-24 06:06] LABS: International Normalized Ratio 1.26; Prothrombin Time Results 13.1 Sec (9.7-11.5)
[2023-02-24 06:19] LABS: Anion Gap 6 mmol/L (6-16); Blood Urea Nitrogen 35 mg/dL (8-24); Bun/Creatinine Ratio 19.3 (12.0-20.0); CO2, Blood 28 mmol/L (21-32); Calcium, Blood 8.4 mg/dL (8.5-10.1); Chloride, Blood 108 mmol/L (98-108); Creatinine, Blood 1.81 mg/dL (0.60-1.20); Glomerular Filtration Rate 36 (60-); Glucose, Blood 272 mg/dL (70-99); Potassium, Blood 3.6 mmol/L (3.5-5.5); Sodium, Blood 142 mmol/L (136-145); Vancomycin, Random 17.9 ug/mL
[2023-02-24 07:18] VITALS: BP 100/87
[2023-02-24 10:30] VITALS: BP 124/65
[2023-02-24 14:31] VITALS: BP 150/50
--- NOTE | 2023-02-24 17:31 | NUR ---
SUMMARY PT WAS AGITATED AND CONFUSED MIDDAY TO THIS EVENING. SEEMS MORE ORIENTED THIS EVENING. TOOK SCHEDULED MEDS WITHOUT DIFFICULTY. DECLINING DINNER TRAY THIS EVENING, SAYING WANTS TO SLEEP AT THIS TIME. REPORTED PAIN TO BUTTOCKS T/O DAY. REPOSITIONED FOR COMFORT AND MEDICATED PER ORDERS FOR PAIN. RESTING WITH LIGHTS OFF AT THIS TIME. CALL LIGHT IN REACH, BED ALARM ON FOR SAFETY.
[2023-02-24 19:23] VITALS: BP 137/112
[2023-02-25 02:16] VITALS: BP 123/36
[2023-02-25 07:29] LABS: International Normalized Ratio 1.81; Prothrombin Time Results 18.4 Sec (9.7-11.5)
[2023-02-25 07:38] LABS: Percent Saturation 16.5 % (20.0-50.0)
[2023-02-25 07:58] LABS: Creatinine, Blood 1.55 mg/dL (0.60-1.20); Vancomycin, Random 18.7 ug/mL
--- NOTE | 2023-02-25 08:16 | NUR ---
SUMMARY PT SLEPT PFF AND ON TONIGHT.INTERMITTENTLY CONFUSED TO SUUROUNDINGS, BUT NO ATTEMPTS OOB,WAS NOTED TO BE IRRITABLE YESTERDAY IWTH INCREASE NOTED POSSSIBLY R/T NORCO. I GAVE PT ONOLY TYLENOL TONIGHT.PT HAD FREQUENT CALLS TOIGHT, BUT PLEASANT.
[2023-02-25 08:43] VITALS: BP 126/52
[2023-02-25 09:26] LABS: BASOPHILS ABSOLUTE AUTO 0.05 K/mm3 (0.00-0.23); BASOPHILS PERCENT AUTO 1 % (0-2); EOSINOPHILS PERCENT AUTO 3 % (0-6); Hematocrit 26.9 % (37.0-53.0); Hemoglobin 8.6 g/dL (13.5-17.5); IMMATURE GRAN ABSOLUTE AUTO 0.02 K/mm3 (0.00-0.10); IMMATURE GRAN PERCENT AUTO 0 % (0-1); LYMPHOCYTES ABSOLUTE AUTO 0.59 K/mm3 (0.84-5.20); LYMPHOCYTES PERCENT AUTO 8 % (21-46); MONOCYTES ABSOLUTE AUTO 0.67 K/mm3 (0.16-1.47); MONOCYTES PERCENT AUTO 9 % (4-13); Mean Corpuscular Volume 103 fL (80-100); NEUTROPHILS PERCENT AUTO 79 % (41-73); Platelet Count 60 K/mm3 (150-400); RDW Coefficient Variation 18.5 % (11.7-14.2); Red Blood Cell Count 2.61 M/mm3 (4.30-5.90); White Blood Cell Count 7.43 K/mm3 (4.00-11.30)
[2023-02-25 09:39] LABS: Anion Gap 7 mmol/L (6-16); Blood Urea Nitrogen 34 mg/dL (8-24); Bun/Creatinine Ratio 21.9 (12.0-20.0); CO2, Blood 26 mmol/L (21-32); Calcium, Blood 8.6 mg/dL (8.5-10.1); Chloride, Blood 108 mmol/L (98-108); Creatinine, Blood 1.55 mg/dL (0.60-1.20); Glomerular Filtration Rate 44 (60-); Glucose, Blood 254 mg/dL (70-99); Phosphorus, Blood 2.6 mg/dL (2.5-4.9); Potassium, Blood 3.7 mmol/L (3.5-5.5); Sodium, Blood 141 mmol/L (136-145)
[2023-02-25 09:47] LABS: Mean Platelet Volume 13.5 fL (9.1-12.4)
--- NOTE | 2023-02-25 16:20 | NUR ---
SHIFT SUMMARY PT A&O2-3/PLEASANT & COOPERATIVE WITH CARE/USES CALL LIGHT/DOES NOT TRY TO GET OOB, MEET PO, VOIDING/URINAL, PAIN MANAGED WITH ULTRAM & REPOSITIONING(2 PP MAX ASSIST), PT DID SOME PHYSICAL THERAPY EXERCISES TODAY, BUT DECLINED TO GET UP, ELEVATED ON PILLOWS, IVF SL/ABX PER EMAR. POD5 L JESUS HIP, AQUACEL CHANGED TODAY (SCANT DRAINAGE/LIFTING/ROLLED UP), WBAT, POSTERIOR PRECAUTIONS. WILL REPORT TO ONCOMING NOC RN.
[2023-02-25 20:56] VITALS: BP 139/63
[2023-02-26 05:29] LABS: International Normalized Ratio 2.88; Prothrombin Time Results 28.5 Sec (9.7-11.5)
[2023-02-26 05:40] LABS: BASOPHILS ABSOLUTE AUTO 0.04 K/mm3 (0.00-0.23); BASOPHILS PERCENT AUTO 1 % (0-2); EOSINOPHILS ABSOLUTE AUTO 0.34 K/mm3 (0.00-0.68); EOSINOPHILS PERCENT AUTO 5 % (0-6); Hematocrit 26.5 % (37.0-53.0); Hemoglobin 8.8 g/dL (13.5-17.5); IMMATURE GRAN ABSOLUTE AUTO 0.06 K/mm3 (0.00-0.10); IMMATURE GRAN PERCENT AUTO 1 % (0-1); LYMPHOCYTES ABSOLUTE AUTO 0.64 K/mm3 (0.84-5.20); LYMPHOCYTES PERCENT AUTO 10 % (21-46); MONOCYTES ABSOLUTE AUTO 0.66 K/mm3 (0.16-1.47); MONOCYTES PERCENT AUTO 10 % (4-13); Mean Corpuscular HGB 33.7 pg (26.0-34.0); Mean Corpuscular HGB Conc 33.2 g/dL (31.5-36.5); Mean Corpuscular Volume 102 fL (80-100); NEUTROPHILS ABSOLUTE AUTO 4.94 K/mm3 (1.96-9.15); NEUTROPHILS PERCENT AUTO 74 % (41-73); Platelet Count 52 K/mm3 (150-400); RDW Coefficient Variation 18.4 % (11.7-14.2); RDW Standard Deviation 68.3 fL (35.1-46.3); Red Blood Cell Count 2.61 M/mm3 (4.30-5.90); White Blood Cell Count 6.68 K/mm3 (4.00-11.30)
[2023-02-26 05:47] LABS: Mean Platelet Volume 13.4 fL (9.1-12.4)
[2023-02-26 05:52] LABS: Albumin, Blood 1.8 g/dL (3.4-5.0); Anion Gap 6 mmol/L (6-16); Blood Urea Nitrogen 33 mg/dL (8-24); CO2, Blood 26 mmol/L (21-32); Calcium, Blood 8.4 mg/dL (8.5-10.1); Chloride, Blood 111 mmol/L (98-108); Creatinine, Blood 1.57 mg/dL (0.60-1.20); Glomerular Filtration Rate 43 (60-); Glucose, Blood 212 mg/dL (70-99); Phosphorus, Blood 2.5 mg/dL (2.5-4.9); Potassium, Blood 3.7 mmol/L (3.5-5.5); Sodium, Blood 143 mmol/L (136-145)
[2023-02-26 07:28] VITALS: BP 119/58
--- NOTE | 2023-02-26 07:55 | NUR ---
SUMMARY PT REQUESTED TO SLEEP THISSHIFT.FORGETFUL AND IRRITABLE AT TIME.R SCROTUM FEELS FIRMER AND FULL REPORTS HX R ING HERNIA, BUT I ? WORSENING. DAY RN SHARON AGREES TO FOLLOW UP.
[2023-02-26 09:25] LABS: Vancomycin, Random 18.7 ug/mL
[2023-02-26 14:41] VITALS: BP 108/40
--- NOTE | 2023-02-26 17:12 | NUR ---
DISCHARGE PATIENT DISCHARGED TO [facility], IV REMOVED INTACT, BELINGINGS TAKEN BY SON TO [facility]. DISCHARGE PACKET GIVEN TO EMAIL CAMPAIGN SPECIALIST. PATIENT TRANSFERED INTO WHEELCHAIR AND AGREES TO DISCHARGE.
== END 2023-02-26 17:41 | DRG 521 ==
LOC: ER 17:27 → MEDS 17:28 → SURS 02-19 00:59 → MEDS 02-19 01:00 → SURS 02-19 11:12 → MEDS 02-19 11:13 → SURS 02-20 18:30
PROVIDERS: Emergency Medicine; Family Medicine; Hospitalist; Nurse Practitioner Acute Care; Orthopaedic Surgery; ADMIT Internal Medicine
PROC: 30233R1 Transfusion of Nonautologous Platelets into Peripheral Vein, Percutaneous Approach (ICD-10-PCS; 2023-02-20)
PROC: 30233N1 Transfusion of Nonautologous Red Blood Cells into Peripheral Vein, Percutaneous Approach (ICD-10-PCS; 2023-02-20)
PROC: 0SRS01A Replacement of Left Hip Joint, Femoral Surface with Metal Synthetic Substitute, Uncemented, Open Approach (ICD-10-PCS; principal; 2023-02-20 14:00)
DX: S72.012A Unspecified intracapsular fracture of left femur, initial encounter for closed fracture (principal); G93.41 Metabolic encephalopathy; N17.9 Acute kidney failure, unspecified; I50.22 Chronic systolic (congestive) heart failure; I13.0 Hypertensive heart and chronic kidney disease with heart failure and stage 1 through stage 4 chronic kidney disease, or unspecified chronic kidney disease; D62 Acute posthemorrhagic anemia; Z66 Do not resuscitate; E11.649 Type 2 diabetes mellitus with hypoglycemia without coma; E11.22 Type 2 diabetes mellitus with diabetic chronic kidney disease; N18.30 Chronic kidney disease, stage 3 unspecified; R79.1 Abnormal coagulation profile; D69.6 Thrombocytopenia, unspecified; I48.91 Unspecified atrial fibrillation; E78.5 Hyperlipidemia, unspecified; E86.0 Dehydration; E87.6 Hypokalemia; N49.2 Inflammatory disorders of scrotum; N40.0 Benign prostatic hyperplasia without lower urinary tract symptoms; N48.22 Cellulitis of corpus cavernosum and penis; B95.62 Methicillin resistant Staphylococcus aureus infection as the cause of diseases classified elsewhere; W18.30XA Fall on same level, unspecified, initial encounter; Z85.72 Personal history of non-Hodgkin lymphomas; Z95.2 Presence of prosthetic heart valve; Z88.0 Allergy status to penicillin; Z88.8 Allergy status to other drugs, medicaments and biological substances; Z79.4 Long term (current) use of insulin; Z79.01 Long term (current) use of anticoagulants; Z86.73 Personal history of transient ischemic attack (TIA), and cerebral infarction without residual deficits; Z90.5 Acquired absence of kidney
CPT/HCPCS: 36415; 70450; 71045; 72170; 73030; 73700; 76870; 80048; 80053; 80069; 80202; 81001; 82565; 82607; 82728; 82746; 82947; 83036; 83540; 83550; 83735; 83880; 85014; 85018; 85025; 85610; 86850; 86900; 86901; 86923; 87086; 92526; 92610; 93005; 93010; 96374; 96375; 97110; 97162; 97166; 97530; 97535; 99285-25; A9270; C1776; G0378; J0171; J0696; J0735; J1100; J1610; J1885; J1940; J2405; J2704; J2795; J3010; J3370; J3430; J3475; J3480; J7040; J7042; J7050; J7060; J7120; P9016; P9035; P9047; P9053

== ENCOUNTER 2023-03-05 03:45 | Emergency (ER) | payer OTHER ==
[~2023-03-05] VITALS: Ht 172.7 cm; Wt 81.7 kg
[2023-03-05 04:10] LABS: BASOPHILS ABSOLUTE AUTO 0.04 K/mm3 (0.00-0.23); BASOPHILS PERCENT AUTO 1 % (0-2); EOSINOPHILS ABSOLUTE AUTO 0.27 K/mm3 (0.00-0.68); EOSINOPHILS PERCENT AUTO 3 % (0-6); Hemoglobin 8.6 g/dL (13.5-17.5); IMMATURE GRAN ABSOLUTE AUTO 0.02 K/mm3 (0.00-0.10); IMMATURE GRAN PERCENT AUTO 0 % (0-1); LYMPHOCYTES ABSOLUTE AUTO 1.45 K/mm3 (0.84-5.20); LYMPHOCYTES PERCENT AUTO 17 % (21-46); MONOCYTES ABSOLUTE AUTO 0.57 K/mm3 (0.16-1.47); MONOCYTES PERCENT AUTO 7 % (4-13); Mean Corpuscular HGB 33.6 pg (26.0-34.0); Mean Corpuscular HGB Conc 31.9 g/dL (31.5-36.5); Mean Corpuscular Volume 106 fL (80-100); NEUTROPHILS ABSOLUTE AUTO 6.19 K/mm3 (1.96-9.15); NEUTROPHILS PERCENT AUTO 72 % (41-73); RDW Coefficient Variation 18.5 % (11.7-14.2); Red Blood Cell Count 2.56 M/mm3 (4.30-5.90); White Blood Cell Count 8.54 K/mm3 (4.00-11.30)
[2023-03-05 04:14] LABS: Mean Platelet Volume 14.4 fL (9.1-12.4); Platelet Count 44 K/mm3 (150-400)
[2023-03-05 04:29] LABS: Bun/Creatinine Ratio 14.3 (12.0-20.0); Creatinine, Blood 1.54 mg/dL (0.60-1.20); Potassium, Blood 3.1 mmol/L (3.5-5.5)
[2023-03-05] MEDS ORDERED: Acetaminophen 500 MG Tab PO ONE (05:50)
[2023-03-05 15:15] VITALS: BP 121/81
== END 2023-03-05 15:31 | disposition home or self-care (01) ==
LOC: ER 03:45
PROVIDERS: Emergency Medicine
DX: E11.649 Type 2 diabetes mellitus with hypoglycemia without coma (principal); I10 Essential (primary) hypertension; E78.5 Hyperlipidemia, unspecified; I48.91 Unspecified atrial fibrillation; Z86.79 Personal history of other diseases of the circulatory system; Z90.5 Acquired absence of kidney; Z79.4 Long term (current) use of insulin; Z79.01 Long term (current) use of anticoagulants; Z79.891 Long term (current) use of opiate analgesic; Z79.899 Other long term (current) drug therapy; Z88.0 Allergy status to penicillin; Z88.8 Allergy status to other drugs, medicaments and biological substances
CPT/HCPCS: 80048; 82947; 85025; 99285; A9270

== ENCOUNTER 2023-03-11 22:39 | Emergency (ER) | payer OTHER ==
[~2023-03-11] VITALS: Ht 167.6 cm; Wt 72.6 kg
[2023-03-11 22:45] VITALS: BP 143/66
[2023-03-11 23:07] LABS: BASOPHILS ABSOLUTE AUTO 0.04 K/mm3 (0.00-0.23); BASOPHILS PERCENT AUTO 1 % (0-2); EOSINOPHILS ABSOLUTE AUTO 0.24 K/mm3 (0.00-0.68); EOSINOPHILS PERCENT AUTO 3 % (0-6); Hematocrit 28.3 % (37.0-53.0); Hemoglobin 8.7 g/dL (13.5-17.5); IMMATURE GRAN ABSOLUTE AUTO 0.03 K/mm3 (0.00-0.10); IMMATURE GRAN PERCENT AUTO 0 % (0-1); LYMPHOCYTES ABSOLUTE AUTO 1.88 K/mm3 (0.84-5.20); LYMPHOCYTES PERCENT AUTO 26 % (21-46); MONOCYTES ABSOLUTE AUTO 0.57 K/mm3 (0.16-1.47); MONOCYTES PERCENT AUTO 8 % (4-13); Mean Corpuscular HGB 33.3 pg (26.0-34.0); Mean Corpuscular HGB Conc 30.7 g/dL (31.5-36.5); Mean Corpuscular Volume 108 fL (80-100); NEUTROPHILS ABSOLUTE AUTO 4.44 K/mm3 (1.96-9.15); NEUTROPHILS PERCENT AUTO 62 % (41-73); Platelet Count 79 K/mm3 (150-400); RDW Coefficient Variation 18.6 % (11.7-14.2); RDW Standard Deviation 73.5 fL (35.1-46.3); Red Blood Cell Count 2.61 M/mm3 (4.30-5.90)
[2023-03-11 23:08] LABS: Mean Platelet Volume 14.8 fL (9.1-12.4)
[2023-03-11 23:30] LABS: Prothrombin Time Results 74.3 Sec (9.7-11.5)
[2023-03-11 23:32] LABS: International Normalized Ratio 7.96
[2023-03-11 23:38] LABS: Albumin, Blood 2.2 g/dL (3.4-5.0); Albumin/Globulin Ratio 0.7 (0.8-1.8); Bilirubin, Total 0.6 mg/dL (0.1-1.0); Bun/Creatinine Ratio 13.5 (12.0-20.0); Calcium, Blood 8.1 mg/dL (8.5-10.1); Creatinine, Blood 1.85 mg/dL (0.60-1.20); Globulin, Blood 3.1 g/dL (2.2-4.0); Potassium, Blood 3.6 mmol/L (3.5-5.5); Total Protein, Blood 5.3 g/dL (6.4-8.2)
== END 2023-03-12 01:58 | disposition home or self-care (01) ==
LOC: ER 22:39
PROVIDERS: Student in an Organized Health Care Education/Training Program
DX: R79.1 Abnormal coagulation profile (principal); Z88.0 Allergy status to penicillin; Z88.8 Allergy status to other drugs, medicaments and biological substances; Z79.899 Other long term (current) drug therapy; Z79.4 Long term (current) use of insulin; Z79.01 Long term (current) use of anticoagulants; E11.9 Type 2 diabetes mellitus without complications; I10 Essential (primary) hypertension; E78.5 Hyperlipidemia, unspecified; I48.91 Unspecified atrial fibrillation
CPT/HCPCS: 80053; 85025; 85610; 99283

== ENCOUNTER 2023-03-23 22:22 | Inpatient (IN) | payer OTHER ==
[~2023-03-23] VITALS: Ht 177.8 cm; Wt 76.1 kg
[2023-03-23 23:20] LABS: Source, Urine Straight Cath
[2023-03-23 23:26] LABS: BASOPHILS ABSOLUTE AUTO 0.02 K/mm3 (0.00-0.23); BASOPHILS PERCENT AUTO 0 % (0-2); EOSINOPHILS ABSOLUTE AUTO 0.11 K/mm3 (0.00-0.68); EOSINOPHILS PERCENT AUTO 1 % (0-6); Hematocrit 31.5 % (37.0-53.0); Hemoglobin 9.9 g/dL (13.5-17.5); IMMATURE GRAN ABSOLUTE AUTO 0.02 K/mm3 (0.00-0.10); IMMATURE GRAN PERCENT AUTO 0 % (0-1); LYMPHOCYTES ABSOLUTE AUTO 1.35 K/mm3 (0.84-5.20); LYMPHOCYTES PERCENT AUTO 15 % (21-46); MONOCYTES PERCENT AUTO 4 % (4-13); Mean Corpuscular HGB Conc 31.4 g/dL (31.5-36.5); Mean Corpuscular Volume 111 fL (80-100); NEUTROPHILS ABSOLUTE AUTO 7.35 K/mm3 (1.96-9.15); NEUTROPHILS PERCENT AUTO 80 % (41-73); Platelet Count 57 K/mm3 (150-400); RDW Coefficient Variation 19.3 % (11.7-14.2); RDW Standard Deviation 78.6 fL (35.1-46.3); Red Blood Cell Count 2.83 M/mm3 (4.30-5.90); White Blood Cell Count 9.25 K/mm3 (4.00-11.30)
[2023-03-23 23:33] LABS: Bilirubin, Urine Neg (Neg); Blood, Urine 5+ (Neg); Glucose Qualitative, Urine 3+ (Neg); Ketones, Urine 2+ (Neg); Leukocyte Esterase, Urine 2+ (Neg); Nitrite, Urine Neg (Neg); Protein, Urine 3+ (Neg); Specific Gravity, Urine 1.025 (1.003-1.022); Urobilinogen, Urine NORM (Normal)
[2023-03-23 23:34] LABS: Base Excess Venous -0.9 mmol/L; Bicarbonate Venous 23.5 mmol/L (24.0-30.0); PCO2 Venous 42.6 mmHg (38-42); pH Blood Venous 7.37 (7.34-7.37)
[2023-03-23 23:42] LABS: Appearance, Urine Hazy (Clear); Color, Urine Yellow (P-Yellow)
[2023-03-23 23:44] LABS: Bacteria Many /hpf; Red Blood Cells, Urine 0-2 /hpf (0-2); Squamous Epithelial Cells Rare /hpf (Few); White Blood Cells, Urine TNTC /hpf (0-5)
[2023-03-24] VITALS (31 sets, daily range): BP systolic 79–148; BP diastolic 18–103
[2023-03-24 00:25] LABS: Albumin, Blood 2.1 g/dL (3.4-5.0); Albumin/Globulin Ratio 0.7 (0.8-1.8); Bilirubin, Total 0.8 mg/dL (0.1-1.0); Bun/Creatinine Ratio 14.9 (12.0-20.0); Calcium, Blood 7.9 mg/dL (8.5-10.1); Creatinine, Blood 1.94 mg/dL (0.60-1.20); Magnesium, Blood 1.8 mg/dL (1.6-2.4); Phosphorus, Blood 3.2 mg/dL (2.5-4.9); Potassium, Blood 3.5 mmol/L (3.5-5.5); Total Protein, Blood 5.1 g/dL (6.4-8.2)
[2023-03-24 00:54] LABS: International Normalized Ratio 3.45; Prothrombin Time Results 33.8 Sec (9.7-11.5)
[2023-03-24 06:19] LABS: BASOPHILS ABSOLUTE AUTO 0.05 K/mm3 (0.00-0.23); BASOPHILS PERCENT AUTO 1 % (0-2); EOSINOPHILS ABSOLUTE AUTO 0.13 K/mm3 (0.00-0.68); EOSINOPHILS PERCENT AUTO 1 % (0-6); Hematocrit 28.5 % (37.0-53.0); Hemoglobin 8.6 g/dL (13.5-17.5); IMMATURE GRAN ABSOLUTE AUTO 0.03 K/mm3 (0.00-0.10); IMMATURE GRAN PERCENT AUTO 0 % (0-1); LYMPHOCYTES ABSOLUTE AUTO 1.21 K/mm3 (0.84-5.20); LYMPHOCYTES PERCENT AUTO 13 % (21-46); MONOCYTES ABSOLUTE AUTO 0.64 K/mm3 (0.16-1.47); MONOCYTES PERCENT AUTO 7 % (4-13); Mean Corpuscular HGB 35.1 pg (26.0-34.0); Mean Corpuscular HGB Conc 30.2 g/dL (31.5-36.5); NEUTROPHILS ABSOLUTE AUTO 7.15 K/mm3 (1.96-9.15); NEUTROPHILS PERCENT AUTO 78 % (41-73); RDW Coefficient Variation 19.1 % (11.7-14.2); RDW Standard Deviation 82.1 fL (35.1-46.3); Red Blood Cell Count 2.45 M/mm3 (4.30-5.90); White Blood Cell Count 9.21 K/mm3 (4.00-11.30)
--- NOTE | 2023-03-24 06:19 | NUR ---
CARE ASSUMPTION/APPLICATION SOFTWARE DEVELOPER SUMMARY PT ARRIVED FROM THE ER AND WAS TRANSFERED TO ICU BED. PT IS RESPONDING TO VOICE BUT HIS SPEECH IS VERY MUMBLED. PT W DIM LS T/O AND SPO2 >94% ON 2L NC. BP WNL AND STABLE. MONITOR SHOWING AFIB 90'S. PT AFEBRILE. PT'S SON AT BEDSIDE PROVIDING MEDICAL HX TO STAFF. PT HAS JONES CATHETER THAT IS PATENT AND DRAINING LULU COLORED URINE. WILL REPORT TO ONCOMING RN.
[2023-03-24 06:35] LABS: Mean Corpuscular Volume 116 fL (80-100)
[2023-03-24 06:36] LABS: Platelet Count 45 K/mm3 (150-400)
[2023-03-24 06:48] LABS: Albumin, Blood 2.1 g/dL (3.4-5.0); Albumin/Globulin Ratio 0.8 (0.8-1.8); Bilirubin, Total 0.7 mg/dL (0.1-1.0); Bun/Creatinine Ratio 15.1 (12.0-20.0); Creatinine, Blood 2.05 mg/dL (0.60-1.20); Globulin, Blood 2.7 g/dL (2.2-4.0); Potassium, Blood 3.3 mmol/L (3.5-5.5); Total Protein, Blood 4.8 g/dL (6.4-8.2)
--- NOTE | 2023-03-24 08:00 | NUR ---
SHIFT ASSESSMENT ASSUMED CARE OF PT @ 0700, BEDSIDE REPORT RECEIVED FROM ANGELA PEREIRA. PT SLEEPING BUT AROUSES EASILY TO VERBAL STIMULI. ALERT TO PERSON, FOLLOWING COMMANDS, WEAKLY GALINDO. QUICKLY BACK TO SLEEP WITH DECREASED STIMULI. DENIES PAIN CURRENTLY. SKIN IN FAIR/ POOR CONDITION, SCATTERED BRUISING. LS DIMINISHED TO L SIDE, CLEAR RIGHT, ON 2LPM VIA NC c SATS >95%. JONES CATH PATENT, DRAINING LULU URINE.
[2023-03-24 09:16] LABS: International Normalized Ratio 3.53; Prothrombin Time Results 34.5 Sec (9.7-11.5)
--- NOTE | 2023-03-24 12:15 | NUR ---
UPDATE PT BECOMING HYPOTENSIVE THIS AM. VERBAL CONSENT OBTAINED VIA PHONE FROM SON ASHLEIGH (POA) FOR CENTRAL LINE AND CHEST TUBE. CENTRAL LINE PLACED, PT DID NOT TOLERATE WELL. SCREAMING "LEAVE ME ALONE". INSERTION SUCCESFUL, VERIFIED WITH CXRAY. PTS DAUGHTER SOUTH AT BEDSIDE DISCUSSING FURTHER TREATMENT WITH ASHLEIGH. DUE TO PTS PRIOR WISHES AND NOT TOLERATING INVASIVE TREATMENTS, DECISION MADE TO NOT PROCEED WITH CHEST TUBE. PLAN ON KEEPING PT COMFORTABLE AT THIS TIME.
--- NOTE | 2023-03-24 18:05 | NUR ---
SHIFT SUMMARY PT REMAINS ALERT TO PERSON, QUITE SOMNOLENT THIS AFTERNOON. TRANSITIONED TO COMFORT CARE, FAMILY AT BEDSIDE. LEVOPHED OFF. HAVE NOT REMOVED LINES YET, FAMILY WISHES FOR PT TO HAVE DECREASED STIMULI/ PAINFUL PROCEDURES. ALLOWING PT TO REST COMFORTABLY.
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
--- NOTE | 2023-03-25 06:47 | NUR ---
SHIFT SUMMARY NO ACUTE EVENTS T/O NIGHT. MEDICATED FOR PAIN PRN. PT WILL OPEN EYES, MOAN, AND GRIMACE WITH CARE. FAMILY AT BEDSIDE MOST OF THE NIGHT. JONES PATENT AND DRAINING TO GRAVITY. ON RA. WILL REPORT OFF TO ONCOMING RN.
--- NOTE | 2023-03-25 09:12 | NUR ---
PT IS MEDICATED FOR PAIN. HE APPEARS TO BE RESTING WELL WHEN NOT DISTURBED, WHEN MOVED ANY AMOUNT HE MOANS AND GRIMACES. HE DOES NOT OPEN EYES, OR FULLY WAKE UP. FAMILY HAS STEPPED OUT TO GET BREAKFAST. PT TOLERATING PAIN MEDICATION WELL. HIS LUNG SOUNDS ARE QUITE DIMENISHED, HIS RESPIRATORY EFFORT IS SHALLOW.
--- NOTE | 2023-03-25 11:29 | NUR ---
DR MATTSON WAS IN TO SEE PT AND FAMILY. IV MORPHINE WAS CHANGED TO PO ROXANOL, WILL BEGIN ROXANOL AT 10MG THE MORPHINE WAS 2MG THIS WILL COVER THE CONVERSION TO PO
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
--- NOTE | 2023-03-25 15:38 | NUR ---
PT'S TOD OF 1500, THIS WAS CONFIRMED BY LISTENING AT THE [facility]RAL SPACES FOR 1 MINUTE. CARROLL GARCIA RN ALSO CONFIRMED THIS WITH THIS RN THAT THERE WAS NO NOTED CARDIAC ACTIVIY. MONITOR READS ASYSTOLE, THERE IS NO SPONTANEOUS RESPIRATIONS NOTED. FAMILY AT BEDSIDE. PACE MAKER WAS TURNED OFF WITH MAGNET AT TIME OF PASSING
--- NOTE | 2023-03-25 18:52 | NUR ---
multiple visits with family. pt transition and passed with comfort and dignity. family given finger prints and star program gifts for therputic healing. will follow up with family.
== END 2023-03-25 15:00 | DRG 189 ==
LOC: ER 22:22 → ICUE 03-24 04:29
PROVIDERS: Emergency Medicine; Family Medicine; ADMIT Student in an Organized Health Care Education/Training Program
PROC: 02HV33Z Insertion of Infusion Device into Superior Vena Cava, Percutaneous Approach (ICD-10-PCS; principal; 2023-03-24)
PROC: 3E033XZ Introduction of Vasopressor into Peripheral Vein, Percutaneous Approach (ICD-10-PCS; 2023-03-24)
DX: J96.01 Acute respiratory failure with hypoxia (principal); J91.0 Malignant pleural effusion; I48.20 Chronic atrial fibrillation, unspecified; E87.1 Hypo-osmolality and hyponatremia; C85.90 Non-Hodgkin lymphoma, unspecified, unspecified site; J98.11 Atelectasis; J96.02 Acute respiratory failure with hypercapnia; Z51.5 Encounter for palliative care; Z66 Do not resuscitate; I95.9 Hypotension, unspecified; R79.1 Abnormal coagulation profile; E11.9 Type 2 diabetes mellitus without complications; E78.5 Hyperlipidemia, unspecified; N40.0 Benign prostatic hyperplasia without lower urinary tract symptoms; I10 Essential (primary) hypertension; R74.02 Elevation of levels of lactic acid dehydrogenase [LDH]; D69.6 Thrombocytopenia, unspecified; E87.6 Hypokalemia; Z53.29 Procedure and treatment not carried out because of patient's decision for other reasons; Z79.01 Long term (current) use of anticoagulants; Z86.73 Personal history of transient ischemic attack (TIA), and cerebral infarction without residual deficits; Z95.2 Presence of prosthetic heart valve; Z88.0 Allergy status to penicillin; Z88.8 Allergy status to other drugs, medicaments and biological substances; Z79.4 Long term (current) use of insulin; Z90.5 Acquired absence of kidney
CPT/HCPCS: 36415; 36430; 36556; 51702; 71045; 71260; 73502; 80053; 81001; 82803; 82947; 83605; 83735; 84100; 84145; 84484; 85025; 85610; 85730; 86850; 86900; 86901; 87040; 87077; 87086; 87186; 93005; 93010; 96365-59; 96375-59; 99285-25; A9270; C1751; J0692; J1885; J2060; J2270; J3370; J3475; J3480; J7030; J7050; J7060; J7120; J7168; P9035; P9045; Q9967